=== PATIENT | female | born 1935 | race Caucasian/White ===

== ENCOUNTER 2016-06-06 17:44 | Inpatient (IN) | payer MEDICARE, OTHER ==
[2016-06-06] MEDS ORDERED: ALBUTEROL NEB 2.5 MG/3 ML INH STA ×2 (19:29→21:47)
[2016-06-06] MEDS ORDERED: ALBUTEROL NEB 2.5 MG/3 ML INH ONE ×3 (19:37→22:07)
[2016-06-06] MEDS ORDERED: methylPREDNISolone SUCCINATE 125 MG/2 ML VIAL IVP STA (21:47)
[2016-06-06] MEDS ORDERED: methylPREDNISolone SUCCINATE 125 MG/2 ML VIAL IVP ONE (21:51)
[2016-06-06] MEDS ORDERED: IOPAMIDOL-300 100 ML VIAL IVP ONE (23:11)
[2016-06-06] MEDS ORDERED: ONDANSETRON 4 MG/2 ML VIAL IVP PRN (23:16)
[2016-06-06] MEDS ORDERED: SODIUM CHLORIDE FLUSH 0.9% 10 ML SYRINGE IVP PRN (23:16)
[2016-06-06] MEDS ORDERED: ACETAMINOPHEN 325 MG TABLET PO PRN (23:16)
[2016-06-06] MEDS ORDERED: ALBUTEROL NEB 2.5 MG/3 ML INH PRN (23:24)
[2016-06-06] MEDS ORDERED: ENOXAPARIN 40 MG/0.4 ML SYRINGE SUBQ SCH (23:51)
[2016-06-07] MEDS: IPRATROPIUM/ALBUTEROL 3 ML NEB INH SCH ×2 (00:25→07:40)
[2016-06-07] MEDS ORDERED: hydrALAZINE INJ 20 MG/ML VIAL IVP PRN (00:30)
[2016-06-07] MEDS: DOXYCYCLINE 100 MG TABLET PO SCH ×2 (00:38→08:29)
[2016-06-07] MEDS ORDERED: ACETAMINOPHEN 325 MG TABLET PO PRN (00:52)
[2016-06-07] MEDS ORDERED: LORazepam 0.5 MG TABLET PO PRN (00:55)
[2016-06-07] MEDS ORDERED: ATORVASTATIN 10 MG TABLET PO SCH (01:00)
[2016-06-07] MEDS ORDERED: FENOFIBRATE 160 MG PO SCH (01:00)
[2016-06-07] MEDS: traMADol 50 MG TABLET PO PRN ×2 (02:47→08:53)
[2016-06-07] MEDS ORDERED: IRON POLYSACCHARIDE COMPLEX 180 MG PO SCH ×2 (06:00→14:00)
[2016-06-07] MEDS ORDERED: SODIUM CHLORIDE FLUSH 0.9% 10 ML SYRINGE IVP SCH (06:00)
[2016-06-07] MEDS ORDERED: LEVOTHYROXINE 125 MCG TABLET PO SCH (07:00)
[2016-06-07] MEDS ORDERED: predniSONE 20 MG TABLET PO SCH (08:00)
[2016-06-07] MEDS: INSULIN ASPART 300 UNIT/3 ML PEN SUBQ SCH ×2 (08:36→11:33)
[2016-06-07] MEDS ORDERED: FLUTICASONE NASAL SPRAY NAS SCH (09:00)
[2016-06-07] MEDS ORDERED: POLYETHYLENE GLYCOL 3350 17 GM PACKET PO SCH (09:00)
[2016-06-07] MEDS ORDERED: MAGNESIUM OXIDE 400 MG TABLET PO SCH (09:00)
[2016-06-07] MEDS ORDERED: POTASSIUM CITRATE 10 MEQ TABLET PO SCH (09:00)
[2016-06-07] MEDS ORDERED: LATANOPROST 0.005% OPHTH DROPS EACHEYE SCH (09:00)
[2016-06-07] MEDS ORDERED: CARVEDILOL 12.5 MG TABLET PO SCH (09:00)
[2016-06-07] MEDS ORDERED: ISOSORBIDE MONONITRATE ER 30 MG TABLET PO SCH (09:00)
[2016-06-07] MEDS ORDERED: VALSARTAN 160 MG PO SCH (09:00)
[2016-06-07] MEDS ORDERED: FUROSEMIDE 40 MG TABLET PO SCH (09:00)
[2016-06-07] MEDS ORDERED: NON FORMULARY MED (Dronedarone Hcl [Multaq] 400 MG) PO SCH (09:00)
[2016-06-07] MEDS ORDERED: OLOPATADINE HCL OP SCH (09:00)
[2016-06-07] MEDS ORDERED: CHOLECALCIFEROL 400 UNIT TABLET PO SCH (09:00)
[2016-06-07] MEDS ORDERED: CALCIUM CARBONATE CHEW 500 MG TABLET PO SCH (09:00)
[2016-06-07] MEDS ORDERED: LOSARTAN 50 MG TABLET PO SCH (09:00)
[2016-06-07] MEDS ORDERED: CETIRIZINE 10 MG TABLET PO SCH (09:00)
[2016-06-07] MEDS ORDERED: POTASSIUM CHLORIDE 10 MEQ CAPSULE PO SCH (12:00)
[2016-06-07] MEDS ORDERED: OLOPATADINE HCL EYE EACHEYE SCH (21:00)
[2016-06-07] MEDS ORDERED: FENOFIBRATE 48 MG TABLET PO SCH (21:00)
[2016-06-07] MEDS ORDERED: DRONEDARONE HCL 400 MG PO SCH (21:00)
[2016-06-07] MEDS ORDERED: FAMOTIDINE 20 MG TABLET PO SCH (21:00)
== END 2016-06-07 11:39 | disposition home or self-care (01) | DRG 189 ==
DX: J96.21 Acute and chronic respiratory failure with hypoxia (principal); J44.9 Chronic obstructive pulmonary disease, unspecified; I10 Essential (primary) hypertension; J44.1 Chronic obstructive pulmonary disease with (acute) exacerbation; I25.2 Old myocardial infarction; I48.2 Chronic atrial fibrillation; I11.0 Hypertensive heart disease with heart failure; I48.91 Unspecified atrial fibrillation; I50.9 Heart failure, unspecified; E11.9 Type 2 diabetes mellitus without complications; I27.2 Other secondary pulmonary hypertension; E66.01 Morbid (severe) obesity due to excess calories; G47.33 Obstructive sleep apnea (adult) (pediatric); I25.10 Atherosclerotic heart disease of native coronary artery without angina pectoris; K21.9 Gastro-esophageal reflux disease without esophagitis; E78.5 Hyperlipidemia, unspecified; Z86.73 Personal history of transient ischemic attack (TIA), and cerebral infarction without residual deficits; Z95.1 Presence of aortocoronary bypass graft; Z95.5 Presence of coronary angioplasty implant and graft; Z68.35 Body mass index [BMI] 35.0-35.9, adult; Z95.0 Presence of cardiac pacemaker; Z87.891 Personal history of nicotine dependence

== ENCOUNTER 2016-06-30 13:03 | Outpatient (CLI) | payer MEDICARE, OTHER ==
[2016-06-30] MEDS ORDERED: ALBUTEROL NEB 2.5 MG/3 ML INH ONE (13:28)
== END 2016-06-30 13:04 | disposition home or self-care (01) ==
LOC: RT 13:03
PROVIDERS: ATTEND Internal Medicine
DX: J44.9 Chronic obstructive pulmonary disease, unspecified (principal)
CPT/HCPCS: 94060; J7613

== ENCOUNTER 2016-10-07 10:17 | Emergency (ER) | payer MEDICARE, OTHER ==
[2016-10-07] MEDS ORDERED: PHENobarb/HYOSCY/ATROPINE/SCOP 5 ML SYRINGE PO STA (12:02)
[2016-10-07] MEDS ORDERED: MAG HYDROX/AL HYDROX/SIMETH 30 ML UDC PO STA (12:02)
[2016-10-07] MEDS ORDERED: LIDOCAINE VISCOUS 2% 15 ML UDC MM STA (12:03)
[2016-10-07] MEDS ORDERED: PHENobarb/HYOSCY/ATROPINE/SCOP 5 ML SYRINGE PO ONE (12:10)
[2016-10-07] MEDS ORDERED: MAG HYDROX/AL HYDROX/SIMETH 30 ML UDC ONE (12:11)
[2016-10-07] MEDS ORDERED: LIDOCAINE VISCOUS 2% 15 ML UDC MM ONE (12:11)
--- NOTE | 2016-10-07 12:54 | ED Physician Documentation ---
PD HPI DYSPNEA - Stated complaint Stated Complaint: SOB,FERNANDEZ,NAUSEA - Chief complaint Chief Complaint: Cardiac - History obtained from History obtained from: Patient - History of Present Illness Timing - onset: Today Timing - onset during: Rest Timing - details: Waxing and waning Worsened by: Exertion Associated symptoms: Chest pain / discomfort. No: Fever, Cough Similar symptoms before: Diagnosis (Reports history of similar symptoms with COPD.) - Additional information Additional information: The patient is an 81-year-old female who presents with shortness of breath that is worse this morning than usual. She reports associated nausea, without vomiting. She has had brief substernal chest tightness, and reports getting "clammy." She denies fever, or any change in her chronic cough, which she attributes to allergies. She reports discontinuing Lasix about one month ago because she was annoyed by having to get up to urinate during the night. She also reports history of COPD, with similar symptoms. Past medical history is significant for coronary artery disease, status post CABG, and status post pacemaker placement. Review of Systems Constitutional: reports: Sweats. denies: Fever Ears: denies: Tinnitus/ringing Nose: denies: Congestion Throat: denies: Sore throat Cardiac: reports: Chest pain / pressure. denies: Palpitations Respiratory: reports: Dyspnea, Cough (Mild chronic cough, without recent change. ) GI: reports: Nausea. denies: Abdominal Pain, Vomiting : denies: Dysuria Skin: denies: Rash Musculoskeletal: denies: Back pain, Extremity swelling Neurologic: denies: Focal weakness, Numbness, Headache PD PAST MEDICAL HISTORY - Past Medical History Past Medical History: Yes Cardiovascular: Congestive heart failure, Hypertension, High cholesterol, Coronary artery disease, Angina, [place] Respiratory: COPD, Emphysema, Shortness of breath, Sleep apnea Neuro: None Endocrine/Autoimmune: HyPOthyroidism GI: GERD, GI bleed, Ulcers, Hiatal hernia, Colon polyps, Cholelithiasis : None HEENT: Chronic sinusitis, Chronic hearing loss Psych: None Musculoskeletal: Chronic back pain Derm: Herpes zoster - Past Surgical History Past Surgical History: Yes General: Cholecystectomy, Appendectomy, Hiatal hernia repair, Colonoscopy, EGD Ortho: Rotator cuff repair, Carpal Tunnel surgery, Spine surgery, 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, 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 Cardiovascular: Coronary stent, Pacemaker, Cardiac catheterization, Angioplasty HEENT: Cataracts, Other Derm: Skin cancer surgery - Present Medications Home Medications: Ambulatory Orders Medication Instructions Recorded Confirmed Atorvastatin Calcium 10 mg PO HS 01/09/13 10/07/16 Calcium Carbonate/Vitamin D3 1 each PO BID 01/09/13 06/06/16 [Calcium 600 + Vit D 400 Softgl] Fenofibrate 160 mg PO HS 01/09/13 10/07/16 Fluticasone [Flonase] 1 puffs NS QAM 01/09/13 10/07/16 Isosorbide Mononitrate [Isosorbide 60 mg PO DAILY 01/09/13 10/07/16 Mononitrate ER] Levothyroxine [Synthroid] 250 mcg PO QDAC 01/09/13 10/07/16 Magnesium Oxide 400 mg PO DAILY 01/09/13 10/07/16 Olopatadine HCl [Patanol] 1 drop OP BID 01/09/13 10/07/16 traMADol [Ultram] 50 mg PO BID PRN 05/30/13 10/07/16 Albuterol Sulfate [Albuterol 2 puffs Q4H PRN 09/25/14 10/07/16 Sulfate Hfa] Valsartan [Diovan] 160 mg PO DAILY 09/25/14 10/07/16 Carvedilol 12.5 mg PO BID 01/07/15 10/07/16 Dronedarone HCl [Multaq] 400 mg PO BID 01/07/15 10/07/16 Latanoprost [Xalatan] 1 drop OP DAILY 01/07/15 10/07/16 Furosemide [Lasix] 40 mg PO DAILY 11/21/15 10/07/16 Acetaminophen [Tylenol] 650 mg PO Q4HR PRN #0 tablet 11/24/15 10/07/16 Cetirizine [ZyrTEC] 10 mg PO DAILY 01/05/16 10/07/16 Famotidine [Pepcid] 20 mg PO QPM 01/05/16 10/07/16 Iron Polysaccharide Complex [Pro 180 mg PO TID 06/06/16 06/06/16 Fe] Potassium Chloride 10 meq PO DAILY 06/06/16 10/07/16 Calcium Carbonate [Tums (Calcium 1,500 mg PO BID tablet 06/07/16 Carbonate 500mg)] - Allergies Allergies/Adverse Reactions: Allergies Allergy/AdvReac Type Severity Reaction Status Date / Time hydrochlorothiazide Allergy Severe Anaphylaxis Verified 10/07/16 10:29 sulfamethoxazole Allergy Severe Anaphylaxis Verified 10/07/16 10:29 [From ] trimethoprim [From ] Allergy Severe Anaphylaxis Verified 10/07/16 10:29 amlodipine AdvReac Severe Swelling Verified 10/07/16 10:29 to ankles and feeet atenolol AdvReac Severe Bradycardia Verified 10/07/16 10:29 Penicillins AdvReac Severe Anxiety/Swelling Verified 10/07/16 10:29 and redness at injection site - Social History Does the pt smoke?: No Smoking Status: Never smoker Does the pt drink ETOH?: No Does the pt have substance abuse?: No - Immunizations Immunizations are current?: Yes - POLST Patient has POLST: No PD ED PE NORMAL - Vitals Vital signs reviewed: Yes (mild hypertension initially.) - General General: Alert and oriented X 3, Other (overweight) - HEENT HEENT: Atraumatic, Pharynx benign - Neck Neck: No adenopathy, No JVD - Cardiac Cardiac: RRR, No murmur - Respiratory Respiratory: No respiratory distress, Other (Faint crackles at the bases bilaterally.) - Abdomen Abdomen: Soft, Other (Mild epigastric discomfort to palpation, without rebound tenderness or guarding.) - Back Back: No CVA TTP - Derm Derm: No rash - Extremities Extremities: No calf tenderness / cord, Other (Trace pedal edema bilaterally.) - Neuro Neuro: Alert and oriented X 3, No motor deficit, No sensory deficit Results - Vitals Vitals: Vital Signs - 24 hr 10/07/16 10/07/16 10/07/16 14:23 14:59 16:16 Heart Rate 70 71 68 Respiratory 20 20 20 Rate Blood Pressure 141/120 H 111/70 123/85 H O2 Saturation 99 97 97 Oxygen O2 Source Room air - EKG (time done) 10:36 Rate: Rate (enter#) (70) Rhythm: Paced Compare to prior EKG: Changed from prior EKG (Compared to prior EKG of 2016, normal sinus rhythm has been replaced by a paced rhythm.) Computer interpretation: Agree with computer - Labs Labs: Laboratory Tests 10/07/16 10/07/16 10/07/16 12:00 13:40 13:40 WBC 10.1 RBC 5.09 Hgb 15.3 Hct 45.7 MCV 89.7 MCH 30.0 MCHC 33.4 RDW 15.4 H Plt Count 223 MPV 9.4 Neut # 6.7 H Lymph # 2.4 [place] # 0.8 Eos # 0.1 Baso # 0.1 Absolute Nucleated RBC 0.00 Nucleated RBCs 0.0 Manual Slide Review Indicated Platelet Estimate NORMAL (130-450,000) RBC Morph Micro Appear 1+ ANISOCYTOSIS D-Dimer Sodium 138 Potassium 3.9 Chloride 103 Carbon Dioxide 25 Anion Gap 10.0 BUN 29 H Creatinine 0.7 Estimated GFR (MDRD) 80 L Glucose 116 H Calcium 9.3 Total Bilirubin 0.7 AST 21 ALT 18 Alkaline Phosphatase 42 Troponin I B-Natriuretic Peptide 187 H Total Protein 6.9 Albumin 3.9 Globulin 3.0 Albumin/Globulin Ratio 1.3 Lipase 15 L 10/07/16 10/07/16 13:40 13:40 WBC RBC Hgb Hct MCV MCH MCHC RDW Plt Count MPV Neut # Lymph # [place] # Eos # Baso # Absolute Nucleated RBC Nucleated RBCs Manual Slide Review Platelet Estimate RBC Morph Micro Appear D-Dimer < 200.0 L Sodium Potassium Chloride Carbon Dioxide Anion Gap BUN Creatinine Estimated GFR (MDRD) Glucose Calcium Total Bilirubin AST ALT Alkaline Phosphatase Troponin I < 0.04 B-Natriuretic Peptide Total Protein Albumin Globulin Albumin/Globulin Ratio Lipase - Rads (name of study) One view chest x-ray Radiology: Prelim report reviewed, EMP read contemporaneously, See rad report ( Mild cardiomegaly and CHF. Pacer.) PD MEDICAL DECISION MAKING - ED course Complexity details: reviewed old records, reviewed results, re-evaluated patient , considered differential, d/w patient, d/w family ED course: The patient's presentation is most consistent with acute exacerbation of congestive heart failure. I doubt myocardial infarction or pulmonary embolus. Her presentation does not suggest pneumonia. Treatment in the emergency department included administration of GI cocktail which did not change her symptoms. Lasix 40 mg was administered IV with subsequent diuresis. She felt subjectively much improved and demonstrated ability to ambulate without recurrent dyspnea. I discussed with her and her the importance that she resume taking Lasix as previously prescribed. I also discussed with them the importance of outpatient follow-up, as well as potentially worrisome signs or symptoms that should prompt reevaluation in the emergency department. Departure - Departure Disposition: 01 Home, Self Care Clinical Impression: CHF (congestive heart failure) Qualifiers: Congestive heart failure type: unspecified congestive heart failure type Congestive heart failure chronicity: acute on chronic Qualified Code(s): I50.9 - Heart failure, unspecified Condition: Stable Instructions: ED CHF General Follow-Up: Coco Garrett DO [Primary Care Provider] - Comments: Resume taking your Lasix as previously prescribed. Follow up with your primary physician within one week. Call to schedule an appointment. Return to the emergency department if you develop increasing difficulty breathing, chest pain, or otherwise worsening symptoms. Discharge Date/Time: 10/07/16 16:16
--- NOTE | 2016-10-07 13:56 | XRAY Preliminary Report ---
Exam: XR Chest 1 View IMPRESSION: 1. Mild cardiomegaly and CHF. 2. Pacer. [facility] SITE ID: [id number]
[2016-10-07 14:00] LABS: BASOPHILS # (AUTO) 0.1 10^3/uL (0.0-0.1); BASOPHILS % (AUTO) 0.8 %; EOSINOPHILS # (AUTO) 0.1 10^3/uL (0.0-0.7); EOSINOPHILS % (AUTO) 0.8 %; HCT - HEMATOCRIT 45.7 % (37.0-47.0); HGB - HEMOGLOBIN 15.3 g/dL (12.0-16.0); LYMPHOCYTES # (AUTO) 2.4 10^3/uL (1.5-3.5); LYMPHOCYTES % (AUTO) 23.9 %; MEAN CORPUSCULAR HGB CONC 33.4 g/dL (32.0-36.0); MEAN CORPUSCULAR VOLUME 89.7 fL (81.0-99.0); MEAN PLATELET VOLUME 9.4 fL (7.9-10.8); MONOCYTES # (AUTO) 0.8 10^3/uL (0.0-1.0); MONOCYTES % (AUTO) 7.5 %; NEUTROPHILS # (AUTO) 6.7 10^3/uL (1.5-6.6); RED BLOOD COUNT 5.09 10^6/uL (4.20-5.40); RED CELL DISTRIBUTION WIDTH 15.4 % (12.0-15.0); UNCORRECTED WHITE BLOOD COUNT 10.1 x10^3/uL; WHITE BLOOD COUNT 10.1 x10^3/uL (4.8-10.8)
--- NOTE | 2016-10-07 14:02 | XRAY Report ---
EXAM: CHEST RADIOGRAPHY EXAM DATE: 10/07/2016 01:36 PM. CLINICAL HISTORY: Dyspnea. COMPARISON: 06/06/2016. TECHNIQUE: 1 view. FINDINGS: Lungs/Pleura: Moderate vascular congestion. No focal consolidation, effusion or pneumothorax. Borderl ine low lung volumes. Mediastinum: Stable mild cardiomegaly. Stable dual-lead left subclavian pacer. Remote sternotomy. No adenopathy. Other: None. IMPRESSION: 1. Mild cardiomegaly and CHF. 2. Pacer. [facility] Referring Provider Line: [phone] SITE ID: [id number]
[2016-10-07 14:04] LABS: ALBUMIN/GLOBULIN RATIO 1.3 (1.0-2.2); BILIRUBIN,TOTAL 0.7 mg/dL (0.2-1.0); CALCIUM 9.3 mg/dL (8.5-10.3); CREATININE 0.7 mg/dL (0.4-1.0); POTASSIUM 3.9 mmol/L (3.5-5.0); TOTAL PROTEIN 6.9 g/dL (6.7-8.2)
[2016-10-07] MEDS ORDERED: FUROSEMIDE 40 MG/4 ML VIAL IVP STA (14:16)
[2016-10-07] MEDS ORDERED: FUROSEMIDE 40 MG/4 ML VIAL ONE (14:22)
[2016-10-07] MEDS ORDERED: SODIUM CHLORIDE FLUSH 0.9% 10 ML SYRINGE IVP ONE (14:25)
[2016-10-07 14:53] LABS: PLATELET ESTIMATE, MANUAL NORMAL (130-450,000) (NORMAL)
[2016-10-07 16:16] VITALS: BP 123/85
== END 2016-10-07 16:16 | disposition home or self-care (01) ==
LOC: ED 10:17
DX: I11.0 Hypertensive heart disease with heart failure (principal); I50.9 Heart failure, unspecified; I25.10 Atherosclerotic heart disease of native coronary artery without angina pectoris; Z95.5 Presence of coronary angioplasty implant and graft; J44.9 Chronic obstructive pulmonary disease, unspecified; E78.00 Pure hypercholesterolemia, unspecified; Z95.0 Presence of cardiac pacemaker
CPT/HCPCS: 36415; 71010; 80053; 83690; 83880; 84484; 85025; 85379; 93005; 96374; 99283; 99285; A9270

== ENCOUNTER 2016-10-09 14:40 | Outpatient (CLI) | payer MEDICARE, OTHER | END 2016-10-09 14:41 | disposition critical access hospital (66) | LOC: EMS 14:40 | PROVIDERS: ATTEND Surgery | DX: R06.00 Dyspnea, unspecified (principal) | CPT/HCPCS: A0425; A0427 ==

== ENCOUNTER 2016-10-09 15:09 | Emergency (ER) | payer MEDICARE, OTHER ==
[2016-10-09 16:00] LABS: ALBUMIN/GLOBULIN RATIO 1.6 (1.0-2.2); BILIRUBIN,TOTAL 0.6 mg/dL (0.2-1.0); CALCIUM 9.1 mg/dL (8.5-10.3); CREATININE 1.2 mg/dL (0.4-1.0); POTASSIUM 3.6 mmol/L (3.5-5.0); TOTAL PROTEIN 6.6 g/dL (6.7-8.2)
--- NOTE | 2016-10-09 16:05 | XRAY Preliminary Report ---
Exam: XR Chest 1 View IMPRESSION: 1. Lung volumes are somewhat low. 2. There is cardiomegaly. 3. Increased opacity within the left base is probably artifact secondary to lordotic AP positioning r ather than infiltrate. No other focal areas of opacity are seen. 4. No evidence of pneumothorax. [facility] SITE ID: [id number]
--- NOTE | 2016-10-09 16:07 | XRAY Report ---
EXAM: CHEST RADIOGRAPHY EXAM DATE: 10/09/2016 03:35 PM. CLINICAL HISTORY: Dyspnea. COMPARISON: 10/07/2016, 06/06/2016. TECHNIQUE: 1 view. FINDINGS: Lungs/Pleura: Lung volumes are somewhat low. There is opacity within the left lateral lung base. The right lung is clear. No evidence of pneumothorax. Mediastinum: There is cardiomegaly. Patient has undergone median sternotomy. Left subclavian dual-tibmo d pacemaker is in place. Other: No acute bony abnormalities are seen. IMPRESSION: 1. Lung volumes are somewhat low. 2. There is cardiomegaly. 3. Increased opacity within the left base is probably artifact secondary to lordotic AP positioning r ather than infiltrate. No other focal areas of opacity are seen. 4. No evidence of pneumothorax. [facility] Referring Provider Line: [phone] SITE ID: [id number]
[2016-10-09 16:13] LABS: BASOPHILS # (AUTO) 0.1 10^3/uL (0.0-0.1); BASOPHILS % (AUTO) 0.9 %; EOSINOPHILS # (AUTO) 0.1 10^3/uL (0.0-0.7); EOSINOPHILS % (AUTO) 0.8 %; HCT - HEMATOCRIT 44.3 % (37.0-47.0); HGB - HEMOGLOBIN 14.7 g/dL (12.0-16.0); LYMPHOCYTES # (AUTO) 2.5 10^3/uL (1.5-3.5); LYMPHOCYTES % (AUTO) 29.3 %; MEAN CORPUSCULAR HEMOGLOBIN 30.2 pg (27.0-31.0); MEAN CORPUSCULAR HGB CONC 33.2 g/dL (32.0-36.0); MEAN CORPUSCULAR VOLUME 91.1 fL (81.0-99.0); MEAN PLATELET VOLUME 9.4 fL (7.9-10.8); MONOCYTES # (AUTO) 0.5 10^3/uL (0.0-1.0); MONOCYTES % (AUTO) 5.6 %; NEUTROPHILS # (AUTO) 5.5 10^3/uL (1.5-6.6); NEUTROPHILS % (AUTO) 63.4 %; NUCLEATED RED BLOOD CELLS AUTO 0.1 /100WBC; RED BLOOD COUNT 4.87 10^6/uL (4.20-5.40); UNCORRECTED WHITE BLOOD COUNT 8.7 x10^3/uL; WHITE BLOOD COUNT 8.7 x10^3/uL (4.8-10.8)
[2016-10-09 16:47] LABS: PLATELET ESTIMATE, MANUAL NORMAL (130-450,000) (NORMAL)
[2016-10-09] MEDS ORDERED: ALBUTEROL NEB 2.5 MG/3 ML INH STA (16:47)
[2016-10-09 17:03] VITALS: BP 134/57
[2016-10-09] MEDS ORDERED: ALBUTEROL NEB 2.5 MG/3 ML INH ONE (17:03)
[2016-10-09] MEDS ORDERED: SODIUM CHLORIDE 0.9% 1,000 ML IV ONE (17:19)
--- NOTE | 2016-10-09 19:07 | ED Physician Documentation ---
PD HPI CHEST PAIN - Stated complaint Stated Complaint: SOA - Chief complaint Chief Complaint: Resp - History obtained from History obtained from: Patient - Additional information Additional information: Patient is a 81-year-old female who presents with a complaint of shortness of breath. She does have chronic shortness of breath although it was a little bit more worse recently. She has a mild nonproductive cough but denies any chest pain chest heaviness fever, productive cough or any other pulmonary complaints. I guess there is some controversy whether she has COPD or not. She never was a smoker but was exposed to secondhand smoke she does take Advair and has a albuterol metered-dose inhaler at home. She does have a history of a CABG stent 2, diabetes and was treated recently for congestive heart failure here with recommendation that she reinitiate her Lasix last week. A cardiac echo done in the past demonstrates LVH, ejection fraction 70% and diastolic dysfunction. She also has a history of atrial fibrillation and obstructive sleep apnea. Review of systems: For pertinent positive and negatives in the review of systems please see the history of present illness, otherwise all other systems have been reviewed and are negative. Dragon disclaimer: Parts of this medical record were created using voice recognition technology. Because of the inherent limitations of this system, occasional same sounding word substitutions do occur and persist despite proofreading. Please read the document for context. Review of Systems Constitutional: denies: Fever, Chills Eyes: denies: Loss of vision Cardiac: denies: Chest pain / pressure, Palpitations Respiratory: reports: Cough GI: denies: Abdominal Pain, Abdominal Swelling, Nausea, Vomiting : denies: Unable to Void Musculoskeletal: denies: Neck pain, Extremity pain, Joint pain Neurologic: denies: Generalized weakness, Focal weakness, Numbness, Difficulty speaking, Near syncope PD PAST MEDICAL HISTORY - Past Medical History Cardiovascular: Congestive heart failure, Hypertension, High cholesterol, Coronary artery disease, Angina, [place] Respiratory: COPD, Emphysema, Shortness of breath, Sleep apnea Neuro: None Endocrine/Autoimmune: HyPOthyroidism GI: GERD, GI bleed, Ulcers, Hiatal hernia, Colon polyps, Cholelithiasis : None HEENT: Chronic sinusitis, Chronic hearing loss Psych: None Musculoskeletal: Chronic back pain Derm: Herpes zoster - Past Surgical History Past Surgical History: Yes General: Cholecystectomy, Appendectomy, Hiatal hernia repair, Colonoscopy, EGD Ortho: Rotator cuff repair, Carpal Tunnel surgery, Spine surgery, 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, 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 Cardiovascular: Coronary stent, Pacemaker, Cardiac catheterization, Angioplasty HEENT: Cataracts, Other Derm: Skin cancer surgery - Present Medications Home Medications: Ambulatory Orders Medication Instructions Recorded Confirmed Atorvastatin Calcium 10 mg PO HS 01/09/13 10/07/16 Calcium Carbonate/Vitamin D3 1 each PO BID 01/09/13 06/06/16 [Calcium 600 + Vit D 400 Softgl] Fenofibrate 160 mg PO HS 01/09/13 10/07/16 Fluticasone [Flonase] 1 puffs NS QAM 01/09/13 10/07/16 Isosorbide Mononitrate [Isosorbide 60 mg PO DAILY 01/09/13 10/07/16 Mononitrate ER] Levothyroxine [Synthroid] 250 mcg PO QDAC 01/09/13 10/07/16 Magnesium Oxide 400 mg PO DAILY 01/09/13 10/07/16 Olopatadine HCl [Patanol] 1 drop OP BID 01/09/13 10/07/16 traMADol [Ultram] 50 mg PO BID PRN 05/30/13 10/07/16 Albuterol Sulfate [Albuterol 2 puffs Q4H PRN 09/25/14 10/07/16 Sulfate Hfa] Valsartan [Diovan] 160 mg PO DAILY 09/25/14 10/07/16 Carvedilol 12.5 mg PO BID 01/07/15 10/07/16 Dronedarone HCl [Multaq] 400 mg PO BID 01/07/15 10/07/16 Latanoprost [Xalatan] 1 drop OP DAILY 01/07/15 10/07/16 Furosemide [Lasix] 40 mg PO DAILY 11/21/15 10/07/16 Acetaminophen [Tylenol] 650 mg PO Q4HR PRN #0 tablet 11/24/15 10/07/16 Cetirizine [ZyrTEC] 10 mg PO DAILY 01/05/16 10/07/16 Famotidine [Pepcid] 20 mg PO QPM 01/05/16 10/07/16 Iron Polysaccharide Complex [Pro 180 mg PO TID 06/06/16 06/06/16 Fe] Potassium Chloride 10 meq PO DAILY 06/06/16 10/07/16 Calcium Carbonate [Tums (Calcium 1,500 mg PO BID tablet 06/07/16 Carbonate 500mg)] - Allergies Allergies/Adverse Reactions: Allergies Allergy/AdvReac Type Severity Reaction Status Date / Time hydrochlorothiazide Allergy Severe Anaphylaxis Verified 10/09/16 15:27 sulfamethoxazole Allergy Severe Anaphylaxis Verified 10/09/16 15:27 [From ] trimethoprim [From ] Allergy Severe Anaphylaxis Verified 10/09/16 15:27 amlodipine AdvReac Severe Swelling Verified 10/09/16 15:27 to ankles and feeet atenolol AdvReac Severe Bradycardia Verified 10/09/16 15:27 Penicillins AdvReac Severe Anxiety/Swelling Verified 10/09/16 15:27 and redness at injection site - Social History Does the pt smoke?: No Smoking Status: Never smoker Does the pt drink ETOH?: No Does the pt have substance abuse?: No - Immunizations Immunizations are current?: Yes - POLST Patient has POLST: No PD ED PE NORMAL - Vitals Vital signs reviewed: Yes - General General: Alert and oriented X 3, No acute distress, Well developed/nourished - HEENT HEENT: Atraumatic - Neck Neck: Supple, no meningeal sign, No bony TTP, Other - Cardiac Cardiac: RRR, No murmur, No gallop, Other - Respiratory Respiratory: No respiratory distress, Clear bilaterally, Other (Occasional end expiratory wheeze) - Abdomen Abdomen: Normal bowel sounds, Non tender, Non distended - Female Female : Deferred - Derm Derm: Normal color, Warm and dry - Extremities Extremities: No deformity, No tenderness to palpate, Normal ROM s pain, No edema , No calf tenderness / cord - Neuro Neuro: Alert and oriented X 3, No motor deficit, No sensory deficit - Psych Psych: Normal mood, Normal affect Results - Vitals Vitals: Vital Signs - 24 hr 10/09/16 10/09/16 10/09/16 15:04 16:55 17:12 Temperature 36.2 C L Heart Rate 59 L 59 L 60 Respiratory 22 16 18 Rate Blood Pressure 148/90 H 134/57 H O2 Saturation 99 93 Oxygen O2 Source Room air - Labs Labs: Laboratory Tests 10/09/16 10/09/16 10/09/16 15:39 15:39 15:39 WBC 8.7 RBC 4.87 Hgb 14.7 Hct 44.3 MCV 91.1 MCH 30.2 MCHC 33.2 RDW 15.0 Plt Count 231 MPV 9.4 Neut # 5.5 Lymph # 2.5 [place] # 0.5 Eos # 0.1 Baso # 0.1 Absolute Nucleated RBC 0.01 Nucleated RBCs 0.1 Manual Slide Review Indicated Platelet Estimate NORMAL (130-450,000) RBC Morph Micro Appear NORMAL APPEARANCE D-Dimer Sodium 142 Potassium 3.6 Chloride 104 Carbon Dioxide 29 Anion Gap 9.0 BUN 39 H Creatinine 1.2 H Estimated GFR (MDRD) 43 L Glucose 149 H Calcium 9.1 Total Bilirubin 0.6 AST 22 ALT 18 Alkaline Phosphatase 44 Troponin I < 0.04 B-Natriuretic Peptide Total Protein 6.6 L Albumin 4.1 Globulin 2.5 Albumin/Globulin Ratio 1.6 Lipase 14 L 10/09/16 10/09/16 15:39 15:39 WBC RBC Hgb Hct MCV MCH MCHC RDW Plt Count MPV Neut # Lymph # [place] # Eos # Baso # Absolute Nucleated RBC Nucleated RBCs Manual Slide Review Platelet Estimate RBC Morph Micro Appear D-Dimer < 200.0 L Sodium Potassium Chloride Carbon Dioxide Anion Gap BUN Creatinine Estimated GFR (MDRD) Glucose Calcium Total Bilirubin AST ALT Alkaline Phosphatase Troponin I B-Natriuretic Peptide 59 Total Protein Albumin Globulin Albumin/Globulin Ratio Lipase PD MEDICAL DECISION MAKING - ED course Complexity details: reviewed old records, reviewed results, re-evaluated patient , considered differential, d/w patient, d/w family ED course: Pleasant lady who presents with a complaint of shortness of breath. She does have history of chronic shortness of breath and looking through her history there is a diagnosis COPD history patient denies. She is however on Advair chronically and albuterol for rescue. It appears that she may have had some exposure to secondhand smoke from her . She was seen here recently and diagnosed with congestive heart failure by x-ray and placed on Lasix which she had been taking the past but on a more periodic basis. It appears from the onset of Lasix initiation from last week until today kidney function has worsened significantly. Last week her BUN was 29 creatinine 0.7 today it is 39 and 1.2. In addition her chief complaint is also dizziness which I think may be related to volume depletion. She was given a liter of normal saline and feels better. EKG here today demonstrates normal sinus rhythm at 60 bpm MD QRS and QT intervals are normal there is no ST segment elevation, depression, or T- wave inversion overall to fairly normal EKG there is poor R-wave progression anteriorly. Chest x-ray shows no acute intrathoracic disease and the blood work has already been mentioned. Her BNP, troponin, and CBC as well as urine are normal. At this point in time I have recommended that she discontinue the Lasix, increase hydration, continue the Advair and albuterol as needed and follow-up with her physician. Also of note I believe she is low risk for PE and she has a negative d-dimer as well. Disposition: To home Clinical impression: 1. Acute kidney injury secondary to overdiuresis 2. Dyspnea-suspect bronchospasm not CHF Please send a copy to Dr. Garrett the patient's PMD Departure - Departure Disposition: 01 Home, Self Care Clinical Impression: Bronchitis, Dehydration, mild Condition: Good Instructions: ED Dehydration Follow-Up: Saniya Garrett MD [Primary Care Provider] - Comments: He was seen in emergency department last week and believed to have a touch of congestive heart failure. Since then he started Lasix at 40 mg a day. Our tests here show that your kidneys are stressed from utilization of Lasix. He stopped the Lasix immediately and follow-up with her physician within a week to discuss the results and also recheck her kidney function.
== END 2016-10-09 21:51 | disposition home or self-care (01) ==
LOC: ED 15:09
DX: J40 Bronchitis, not specified as acute or chronic (principal); E86.0 Dehydration; I11.0 Hypertensive heart disease with heart failure; I50.9 Heart failure, unspecified; I25.10 Atherosclerotic heart disease of native coronary artery without angina pectoris; Z95.5 Presence of coronary angioplasty implant and graft; Z95.0 Presence of cardiac pacemaker; J44.9 Chronic obstructive pulmonary disease, unspecified; E11.9 Type 2 diabetes mellitus without complications; Z95.1 Presence of aortocoronary bypass graft; I48.91 Unspecified atrial fibrillation; G47.30 Sleep apnea, unspecified
CPT/HCPCS: 36415; 71010; 80053; 83690; 83880; 84484; 85025; 85379; 93005; 94640; 99284; J7613

== ENCOUNTER 2016-12-01 11:37 | Emergency (ER) | payer MEDICARE, OTHER ==
--- NOTE | 2016-12-01 12:39 | ED Physician Documentation ---
History of Present Illness - Stated complaint Stated Complaint: SOA/DIZZY - Chief complaint Chief Complaint: General - History obtained from History obtained from: Patient - History of Present Illness Timing: Other (This is an 81-year-old woman with history of coronary disease, status post three-vessel bypass in 2003 has been stented since, also history of CHF on intermittent Lasix for weight gain and atrial fibrillation with pacemaker in place, not currently anticoagulated because of a history of GI bleeding last year. She presents with several days worth of increasing lightheadedness especially when she stands up but is slightly present at rest, also exertional dyspnea that is not positional. She has a baseline cough which is no worse than normal because of allergies she says. There is no associated chest pain or pedal edema.) Review of Systems Ten Systems: 10 systems reviewed and negative Constitutional: denies: Fever, Chills, Fatigue Nose: denies: Rhinorrhea / runny nose, Congestion Cardiac: denies: Chest pain / pressure, Palpitations, Pedal edema, Calf pain Respiratory: reports: Dyspnea, Cough. denies: Hemoptysis, Wheezing PD PAST MEDICAL HISTORY - Past Medical History Past Medical History: Yes Cardiovascular: Congestive heart failure, Hypertension, High cholesterol, Coronary artery disease, Angina, [place] Respiratory: COPD, Emphysema, Shortness of breath, Sleep apnea Neuro: None Endocrine/Autoimmune: HyPOthyroidism GI: GERD, GI bleed, Ulcers, Hiatal hernia, Colon polyps, Cholelithiasis : None HEENT: Chronic sinusitis, Chronic hearing loss Psych: None Musculoskeletal: Chronic back pain Derm: Herpes zoster - Past Surgical History Past Surgical History: Yes General: Cholecystectomy, Appendectomy, Hiatal hernia repair, Colonoscopy, EGD Ortho: Rotator cuff repair, Carpal Tunnel surgery, Spine surgery, 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, 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 Cardiovascular: Coronary stent, Pacemaker, Cardiac catheterization, Angioplasty HEENT: Cataracts, Other Derm: Skin cancer surgery - Present Medications Home Medications: Ambulatory Orders Medication Instructions Recorded Confirmed Atorvastatin Calcium 10 mg PO HS 01/09/13 12/01/16 Calcium Carbonate/Vitamin D3 1 each PO BID 01/09/13 12/01/16 [Calcium 600 + Vit D 400 Softgl] Fenofibrate 160 mg PO HS 01/09/13 12/01/16 Fluticasone [Flonase] 1 puffs NS QAM 01/09/13 12/01/16 Isosorbide Mononitrate [Isosorbide 60 mg PO DAILY 01/09/13 12/01/16 Mononitrate ER] Levothyroxine [Synthroid] 250 mcg PO QDAC 01/09/13 12/01/16 Magnesium Oxide 400 mg PO DAILY 01/09/13 12/01/16 Olopatadine HCl [Patanol] 1 drop OP BID 01/09/13 12/01/16 traMADol [Ultram] 50 mg PO BID PRN 05/30/13 12/01/16 Albuterol Sulfate [Albuterol 2 puffs Q4H PRN 09/25/14 12/01/16 Sulfate Hfa] Valsartan [Diovan] 160 mg PO DAILY 09/25/14 12/01/16 Carvedilol 12.5 mg PO BID 01/07/15 12/01/16 Dronedarone HCl [Multaq] 400 mg PO BID 01/07/15 12/01/16 Latanoprost [Xalatan] 1 drop OP DAILY 01/07/15 12/01/16 Furosemide [Lasix] 40 mg PO DAILY PRN 11/21/15 12/01/16 Acetaminophen [Tylenol] 650 mg PO Q4HR PRN #0 tablet 11/24/15 12/01/16 Cetirizine [ZyrTEC] 10 mg PO DAILY 01/05/16 12/01/16 Famotidine [Pepcid] 20 mg PO QPM 01/05/16 12/01/16 Iron Polysaccharide Complex [Pro 180 mg PO TID 06/06/16 12/01/16 Fe] Potassium Chloride 10 meq PO DAILY 06/06/16 12/01/16 Calcium Carbonate [Tums (Calcium 1,500 mg PO BID tablet 06/07/16 12/01/16 Carbonate 500mg)] - Allergies Allergies/Adverse Reactions: Allergies Allergy/AdvReac Type Severity Reaction Status Date / Time hydrochlorothiazide Allergy Severe Anaphylaxis Verified 10/09/16 15:27 sulfamethoxazole Allergy Severe Anaphylaxis Verified 10/09/16 15:27 [From ] trimethoprim [From ] Allergy Severe Anaphylaxis Verified 10/09/16 15:27 amlodipine AdvReac Severe Swelling Verified 10/09/16 15:27 to ankles and feeet atenolol AdvReac Severe Bradycardia Verified 10/09/16 15:27 Penicillins AdvReac Severe Anxiety/Swelling Verified 10/09/16 15:27 and redness at injection site - Living Situation Living Situation: reports: With spouse/s.o. - Social History Does the pt smoke?: No Smoking Status: Never smoker Does the pt drink ETOH?: No Does the pt have substance abuse?: No - Family History Family history: reports: Non contributory - Immunizations Immunizations are current?: Yes - POLST Patient has POLST: No PD ED PE NORMAL - Vitals Vital signs reviewed: Yes - General General: Alert and oriented X 3, No acute distress - HEENT HEENT: PERRL, EOMI - Neck Neck: Supple, no meningeal sign, No bony TTP - Cardiac Cardiac: RRR, No murmur - Respiratory Respiratory: No respiratory distress, Other (Slightly rhonchorous at the bases without rales) - Abdomen Abdomen: Soft, Non tender - Back Back: No CVA TTP, No spinal TTP - Derm Derm: Normal color, Warm and dry - Extremities Extremities: No edema, No calf tenderness / cord - Neuro Neuro: Alert and oriented X 3, Normal speech - Psych Psych: Normal mood, Normal affect Results - Vitals Vitals: Vital Signs - 24 hr 12/01/16 11:48 Temperature 36.4 C L Heart Rate 61 Respiratory 20 Rate Blood Pressure 101/61 O2 Saturation 98 Oxygen O2 Source Room air - EKG (time done) 1247 Rate: Rate (enter#) (60) Rhythm: NSR [place]: Normal Intervals: Normal IN QRS: LVH Ischemia: Non specific changes Compare to prior EKG: Unchanged from prior EKG (NO CHANGE FROM 10/09/16) Computer interpretation: Agree with computer - Labs Labs: Laboratory Tests 12/01/16 12/01/16 12/01/16 12:35 12:35 12:35 WBC 9.3 RBC 4.83 Hgb 15.0 Hct 45.4 MCV 94.1 MCH 31.0 MCHC 33.0 RDW 15.1 H Plt Count 220 MPV 9.9 Neut # 6.0 Lymph # 2.3 [place] # 0.7 Eos # 0.1 Baso # 0.1 Absolute Nucleated RBC 0.01 Nucleated RBC % 0.1 D-Dimer Sodium 137 Potassium 4.2 Chloride 100 L Carbon Dioxide 28 Anion Gap 9.0 BUN 27 H Creatinine 0.9 Estimated GFR (MDRD) 60 L Glucose 121 H Calcium 9.4 Total Bilirubin 0.5 AST 25 ALT 18 Alkaline Phosphatase 38 L Troponin I < 0.04 B-Natriuretic Peptide Total Protein 7.1 Albumin 4.1 Globulin 3.0 Albumin/Globulin Ratio 1.4 Lipase 17 L 12/01/16 12/01/16 12:35 13:05 WBC RBC Hgb Hct MCV MCH MCHC RDW Plt Count MPV Neut # Lymph # [place] # Eos # Baso # Absolute Nucleated RBC Nucleated RBC % D-Dimer 201.5 Sodium Potassium Chloride Carbon Dioxide Anion Gap BUN Creatinine Estimated GFR (MDRD) Glucose Calcium Total Bilirubin AST ALT Alkaline Phosphatase Troponin I B-Natriuretic Peptide 73 Total Protein Albumin Globulin Albumin/Globulin Ratio Lipase - Rads (name of study) 2v chest Radiology: EMP read contemporaneously (Chronic lung disease and pacemaker in place without fluid overload or acute disease.) PD MEDICAL DECISION MAKING - ED course ED course: 81-year-old woman presents with postural lightheadedness, her EKG is unchanged and she appears at least euvolemic if not slightly hypovolemic on exam. Her BUN is up. There is no evidence of CHF. She is administered IV fluids. Departure - Departure Disposition: 01 Home, Self Care Clinical Impression: Near syncope, Dehydration Condition: Good Record reviewed to determine appropriate education?: Yes Instructions: ED Dehydration, ED Near Syncope Unkn Comments: Call your doctor to arrange a follow-up appointment, make the next available appointment. In the interim, return anytime if worse or if new symptoms develop.
[2016-12-01 12:44] LABS: BASOPHILS # (AUTO) 0.1 10^3/uL (0.0-0.1); BASOPHILS % (AUTO) 0.7 %; EOSINOPHILS # (AUTO) 0.1 10^3/uL (0.0-0.7); EOSINOPHILS % (AUTO) 1.4 %; HCT - HEMATOCRIT 45.4 % (37.0-47.0); LYMPHOCYTES # (AUTO) 2.3 10^3/uL (1.5-3.5); LYMPHOCYTES % (AUTO) 25.3 %; MEAN CORPUSCULAR VOLUME 94.1 fL (81.0-99.0); MEAN PLATELET VOLUME 9.9 fL (7.9-10.8); MONOCYTES # (AUTO) 0.7 10^3/uL (0.0-1.0); MONOCYTES % (AUTO) 7.8 %; NEUTROPHILS % (AUTO) 64.8 %; NUCLEATED RED BLOOD CELLS AUTO 0.1 /100WBC; RED BLOOD COUNT 4.83 10^6/uL (4.20-5.40); RED CELL DISTRIBUTION WIDTH 15.1 % (12.0-15.0); UNCORRECTED WHITE BLOOD COUNT 9.3 x10^3/uL; WHITE BLOOD COUNT 9.3 x10^3/uL (4.8-10.8)
[2016-12-01 12:52] LABS: ALBUMIN/GLOBULIN RATIO 1.4 (1.0-2.2); BILIRUBIN,TOTAL 0.5 mg/dL (0.2-1.0); CALCIUM 9.4 mg/dL (8.5-10.3); CREATININE 0.9 mg/dL (0.4-1.0); POTASSIUM 4.2 mmol/L (3.5-5.0); TOTAL PROTEIN 7.1 g/dL (6.7-8.2)
[2016-12-01] MEDS ORDERED: SODIUM CHLORIDE 0.9% 500 ML IV ONE (13:34)
--- NOTE | 2016-12-01 14:31 | XRAY Preliminary Report ---
Exam: XR Chest 2 View PA/LAT IMPRESSION: 1. Chronic lung disease. 2. Pacer. [facility] SITE ID: [id number]
[2016-12-01 14:40] VITALS: BP 153/64
--- NOTE | 2016-12-01 14:40 | XRAY Report ---
EXAM: CHEST RADIOGRAPHY EXAM DATE: 12/01/2016 01:43 p.m. CLINICAL HISTORY: Dyspnea. COMPARISON: 10/09/2016. 06/06/2016 chest CTA. TECHNIQUE: 2 views. FINDINGS: Lungs/Pleura: Overexpanded, emphysematous changes. Stable fibrosis in right posterior lung base. No focal consolidation, effusion, vascular congestion, nor pneumothorax. Mediastinum: Heart is of normal caliber. Remote sternotomy. Dual-lead left subclavian pacer. Other: Cholecystectomy. IMPRESSION: 1. Chronic lung disease. 2. Pacer. [facility] Referring Provider Line: [phone] SITE ID: [id number]
== END 2016-12-01 15:50 | disposition home or self-care (01) ==
LOC: ED 11:37
DX: R55 Syncope and collapse (principal); E86.0 Dehydration; R94.31 Abnormal electrocardiogram [ECG] [EKG]; I11.0 Hypertensive heart disease with heart failure; I50.9 Heart failure, unspecified; E78.00 Pure hypercholesterolemia, unspecified; I25.10 Atherosclerotic heart disease of native coronary artery without angina pectoris; I25.2 Old myocardial infarction; Z95.1 Presence of aortocoronary bypass graft; Z95.0 Presence of cardiac pacemaker
CPT/HCPCS: 36415; 71020; 80053; 83690; 83880; 84484; 85025; 85379; 93005; 96360; 99284; 99285

== ENCOUNTER 2016-12-21 13:09 | Outpatient (CLI) | payer MEDICARE, OTHER | END 2016-12-21 13:10 | disposition home or self-care (01) | LOC: RT 13:09 | PROVIDERS: ATTEND Internal Medicine | DX: J44.9 Chronic obstructive pulmonary disease, unspecified (principal) | CPT/HCPCS: 94010 ==

== ENCOUNTER 2018-01-20 23:09 | Outpatient (CLI) | payer MEDICARE, OTHER | END 2018-01-20 23:10 | disposition critical access hospital (66) | LOC: EMS 23:09 | PROVIDERS: ATTEND Surgery | DX: M25.511 Pain in right shoulder (principal); W01.0XXA Fall on same level from slipping, tripping and stumbling without subsequent striking against object, initial encounter; Y93.01 Activity, walking, marching and hiking; Y92.008 Other place in unspecified non-institutional (private) residence as the place of occurrence of the external cause | CPT/HCPCS: A0425; A0427 ==

== ENCOUNTER 2018-01-20 23:28 | Emergency (ER) | payer MEDICARE, OTHER ==
[2018-01-20] MEDS ORDERED: MORPHINE 10 MG/ML VIAL IVP STA (23:42)
--- NOTE | 2018-01-20 23:44 | ED Physician Documentation ---
PD HPI UPPER EXT INJURY - Stated complaint Stated Complaint: GLF - Chief complaint Chief Complaint: Trauma Ext - History obtained from History obtained from: Patient - History of Present Illness Location: Right, Arm, Forearm Type of injury: Fall (walking in slippers and tripped on edge of carpet, falling forward/right onto right arm mostly. Abrasion to knee as well.) Where injury occurred: Home Timing - onset: How many hours ago (1), Today Timing - details: Abrupt onset, Still present Worsened by: Moving, Palpating Associated symptoms: No: Weakness, Numbness, Tingling Contributing factors: No: Anticoagulated Similar symptoms before: Has not had sx before Recently seen: Not recently seen Review of Systems Constitutional: denies: Fever, Chills Nose: denies: Rhinorrhea / runny nose, Congestion Throat: denies: Sore throat Respiratory: denies: Cough GI: denies: Abdominal Pain, Nausea, Vomiting, Diarrhea Skin: denies: Rash Neurologic: denies: Generalized weakness, Focal weakness, Numbness, Difficulty speaking, Altered mental status, Head injury PD PAST MEDICAL HISTORY - Past Medical History Cardiovascular: Congestive heart failure, Hypertension, High cholesterol, Coronary artery disease, Angina, [place] Respiratory: COPD, Emphysema, Shortness of breath, Sleep apnea Endocrine/Autoimmune: HyPOthyroidism GI: GERD, GI bleed, Ulcers, Hiatal hernia, Colon polyps, Cholelithiasis : None HEENT: Chronic sinusitis, Chronic hearing loss Psych: None Musculoskeletal: Chronic back pain Derm: Herpes zoster - Past Surgical History Past Surgical History: Yes General: Cholecystectomy, Appendectomy, Hiatal hernia repair, Colonoscopy, EGD Ortho: Rotator cuff repair, Carpal Tunnel surgery, Spine surgery, 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, 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 Cardiovascular: Coronary stent, Pacemaker, Cardiac catheterization, Angioplasty HEENT: Cataracts, Other Derm: Skin cancer surgery - Present Medications Home Medications: Ambulatory Orders Medication Instructions Recorded Confirmed Atorvastatin Calcium 10 mg PO HS 01/09/13 12/01/16 Calcium Carbonate/Vitamin D3 1 each PO BID 01/09/13 12/01/16 [Calcium 600 + Vit D 400 Softgl] Fenofibrate 160 mg PO HS 01/09/13 12/01/16 Fluticasone [Flonase] 1 puffs NS QAM 01/09/13 12/01/16 Isosorbide Mononitrate [Isosorbide 60 mg PO DAILY 01/09/13 12/01/16 Mononitrate ER] Levothyroxine [Synthroid] 250 mcg PO QDAC 01/09/13 12/01/16 Magnesium Oxide 400 mg PO DAILY 01/09/13 12/01/16 Olopatadine HCl [Patanol] 1 drop OP BID 01/09/13 12/01/16 traMADol [Ultram] 50 mg PO BID PRN 05/30/13 12/01/16 Albuterol Sulfate [Albuterol 2 puffs Q4H PRN 09/25/14 12/01/16 Sulfate Hfa] Valsartan [Diovan] 160 mg PO DAILY 09/25/14 12/01/16 Carvedilol 12.5 mg PO BID 01/07/15 12/01/16 Dronedarone HCl [Multaq] 400 mg PO BID 01/07/15 12/01/16 Latanoprost [Xalatan] 1 drop OP DAILY 01/07/15 12/01/16 Furosemide [Lasix] 40 mg PO DAILY PRN 11/21/15 12/01/16 Acetaminophen [Tylenol] 650 mg PO Q4HR PRN #0 tablet 11/24/15 12/01/16 Cetirizine [ZyrTEC] 10 mg PO DAILY 01/05/16 12/01/16 Famotidine [Pepcid] 20 mg PO QPM 01/05/16 12/01/16 Iron Polysaccharide Complex [Pro 180 mg PO TID 06/06/16 12/01/16 Fe] Potassium Chloride 10 meq PO DAILY 06/06/16 12/01/16 Calcium Carbonate [Tums (Calcium 1,500 mg PO BID tablet 06/07/16 12/01/16 Carbonate 500mg)] Hydrocodone/Acetaminophen [[place] 1 each PO Q6H PRN #15 tablet 01/21/18 5-325 Tablet] Naproxen 375 mg PO BID #20 tablet 01/21/18 - Allergies Allergies/Adverse Reactions: Allergies Allergy/AdvReac Type Severity Reaction Status Date / Time hydrochlorothiazide Allergy Severe Anaphylaxis Verified 01/20/18 23:38 sulfamethoxazole Allergy Severe Anaphylaxis Verified 01/20/18 23:38 [From ] trimethoprim [From ] Allergy Severe Anaphylaxis Verified 01/20/18 23:38 amlodipine AdvReac Severe Swelling Verified 01/20/18 23:38 to ankles and feeet atenolol AdvReac Severe Bradycardia Verified 01/20/18 23:38 Penicillins AdvReac Severe Anxiety/Swelling Verified 01/20/18 23:38 and redness at injection site - Social History Does the pt smoke?: No Smoking Status: Never smoker Does the pt drink ETOH?: No Does the pt have substance abuse?: No - Immunizations Immunizations are current?: Yes - POLST Patient has POLST: No PD ED PE NORMAL - Vitals Vital signs reviewed: Yes - General General: Alert and oriented X 3, Well developed/nourished - HEENT HEENT: Atraumatic - Neck Neck: Supple, no meningeal sign, No bony TTP, No adenopathy - Cardiac Cardiac: RRR, No murmur - Respiratory Respiratory: Clear bilaterally - Abdomen Abdomen: Soft, Non tender - Back Back: No spinal TTP - Derm Derm: Normal color, Warm and dry - Extremities Extremities: Other (right knee with abrasion but no effusion and good full ROM without pain. No bony tenderness. Right forearm tender distally without obvious deformity. Normal color, pulses, sensation and motor in hand/wrist. Right upper arm with tenderness at proximal humerus. No gross deformity. ) - Neuro Neuro: Alert and oriented X 3, No motor deficit, No sensory deficit, Normal speech Eye Opening: Spontaneous Motor: Obeys Commands Verbal: Oriented GCS Score: 15 Results - Vitals Vitals: Vital Signs - 24 hr 01/20/18 01/21/18 01/21/18 23:31 01:38 02:25 Temperature 36.5 C 36.6 C Heart Rate 59 L 63 61 Respiratory 20 20 20 Rate Blood Pressure 146/85 H 144/72 H 149/49 H O2 Saturation 96 93 96 Oxygen O2 Source Room air - Rads (name of study) forearm right Radiology: Prelim report reviewed, EMP read contemporaneously (no fractures nor deformity) right humerus Radiology: Prelim report reviewed (impacted humeral neck fracture), EMP read contemporaneously PD MEDICAL DECISION MAKING - ED course Complexity details: reviewed results, considered differential, d/w patient Departure - Departure Disposition: 01 Home, Self Care Clinical Impression: Fall from slip, trip, or stumble Qualifiers: Encounter type: initial encounter Qualified Code(s): W01.0XXA - Fall on same level from slipping, tripping and stumbling without subsequent striking against object, initial encounter Right wrist sprain Qualifiers: Encounter type: initial encounter Qualified Code(s): S63.501A - Unspecified sprain of right wrist, initial encounter Fracture of neck of humerus Qualifiers: Encounter type: initial encounter Fracture type: closed Laterality: right Qualified Code(s): S42.211A - Unspecified displaced fracture of surgical neck of right humerus, initial encounter for closed fracture Condition: Stable Record reviewed to determine appropriate education?: Yes Instructions: ED Fx Shoulder Follow-Up: ANT VIVEROS MD [Primary Care Provider] - [facility] [Provider Group] Prescriptions: Hydrocodone/Acetaminophen [[place] 5-325 Tablet] 1 each PO Q6H PRN #15 tablet PRN Reason: Pain Naproxen 375 mg PO BID #20 tablet Comments: Use the sling to reduce shoulder movement at the fracture. He will need this for 4-6 weeks. Follow-up with orthopedics in about a week, call Monday for an appointment. Initially not to do any range of motion on this with the initial early healing. However you do not want it to get "frozen" and so at some point he will be directed to start gentle range of motion exercises. Follow-up with orthopedics within the week to get better guidance on when to start that. Use anti-inflammatories such as naproxen twice daily and add Tylenol or pain medicine as needed. Rest and sleep in the best position of comfort. Sometimes that in a recliner or with several pillows propped up so that the arm is downward with the sling. Discharge Date/Time: 01/21/18 02:36
[2018-01-21] MEDS ORDERED: HYDROmorphone 1 MG/ML CARPUJECT IM STA (01:12)
[2018-01-21] MEDS ORDERED: KETOROLAC 30 MG/ML VIAL IM STA (01:12)
[2018-01-21] MEDS ORDERED: oxyCODONE/ACET 5/325 Prepack 4 PO STA (01:12)
[2018-01-21] MEDS ORDERED: HYDROmorphone 1 MG/ML CARPUJECT IVP STA (01:21)
[2018-01-21] MEDS ORDERED: KETOROLAC 15 MG/ML VIAL IVP STA (01:21)
--- NOTE | 2018-01-21 01:25 | XRAY Report ---
Reason: fall with injury to right arm/forearm Procedure Date: 01/21/2018 Accession Number: [id number] / [id number] Procedure: XR - Humerus RT CPT Code: FULL RESULT: EXAM: RIGHT HUMERUS RADIOGRAPHY EXAM DATE: 01/21/2018 01:18 AM. CLINICAL HISTORY: Fall with injury to right arm/forearm. COMPARISON: None. TECHNIQUE: 2 views. FINDINGS: Bones: There is an impacted mildly angulated proximal humeral shaft fracture. Joints: Degenerative changes in the shoulder. Visualization of the elbow is limited. Soft Tissues: Proximal soft tissue swelling. IMPRESSION: Impacted and mildly angulated proximal humeral fracture. [facility]
--- NOTE | 2018-01-21 01:28 | XRAY Report ---
Reason: fall with injury right arm/forearm Procedure Date: 01/21/2018 Accession Number: [id number] / [id number] Procedure: XR - Forearm RT CPT Code: FULL RESULT: EXAM: RIGHT FOREARM RADIOGRAPHY EXAM DATE: 01/21/2018 01:24 AM. CLINICAL HISTORY: Fall with injury right arm/forearm. COMPARISON: HUMERUS RT 01/20/2018 11:51 PM. TECHNIQUE: 2 views. FINDINGS: Bones: Normal. No fractures or bone lesions. 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 The elbow appears unremarkable. Soft Tissues: Normal. No soft tissue swelling. IMPRESSION: Osteoarthritis. No evidence of acute fracture. [facility]
[2018-01-21 02:28] VITALS: BP 149/49
== END 2018-01-21 02:36 | disposition home or self-care (01) ==
LOC: EDUNIT# → ED 23:28
DX: S63.501A Unspecified sprain of right wrist, initial encounter (principal); S42.211A Unspecified displaced fracture of surgical neck of right humerus, initial encounter for closed fracture; S80.211A Abrasion, right knee, initial encounter; W01.0XXA Fall on same level from slipping, tripping and stumbling without subsequent striking against object, initial encounter; Y93.01 Activity, walking, marching and hiking; Y92.009 Unspecified place in unspecified non-institutional (private) residence as the place of occurrence of the external cause; I11.0 Hypertensive heart disease with heart failure; I50.9 Heart failure, unspecified; I25.119 Atherosclerotic heart disease of native coronary artery with unspecified angina pectoris; I25.2 Old myocardial infarction; J44.9 Chronic obstructive pulmonary disease, unspecified; Z95.5 Presence of coronary angioplasty implant and graft; Z95.0 Presence of cardiac pacemaker
CPT/HCPCS: 96374; 96375; 99284

== ENCOUNTER 2018-12-30 22:31 | Emergency (ER) | payer MEDICARE, OTHER ==
[2018-12-30 22:48] LABS: BASOPHILS # (AUTO) 0.1 10^3/uL (0.0-0.1); BASOPHILS % (AUTO) 0.5 %; EOSINOPHILS # (AUTO) 0.2 10^3/uL (0.0-0.7); EOSINOPHILS % (AUTO) 1.5 %; HGB - HEMOGLOBIN 17.3 g/dL (12.0-16.0); LYMPHOCYTES # (AUTO) 2.1 10^3/uL (1.5-3.5); LYMPHOCYTES % (AUTO) 18.2 %; MEAN CORPUSCULAR HEMOGLOBIN 30.8 pg (27.0-31.0); MEAN CORPUSCULAR HGB CONC 32.5 g/dL (32.0-36.0); MEAN CORPUSCULAR VOLUME 94.8 fL (81.0-99.0); MEAN PLATELET VOLUME 11.1 fL (7.9-10.8); MONOCYTES # (AUTO) 0.7 10^3/uL (0.0-1.0); MONOCYTES % (AUTO) 5.9 %; NEUTROPHILS # (AUTO) 8.3 10^3/uL (1.5-6.6); PLT - PLATELET COUNT 246 10^3/uL (130-450); RED BLOOD COUNT 5.62 10^6/uL (4.20-5.40); RED CELL DISTRIBUTION WIDTH 13.9 % (12.0-15.0); WHITE BLOOD COUNT 11.4 x10^3/uL (4.8-10.8)
[2018-12-30] MEDS ORDERED: ONDANSETRON 4 MG/2 ML VIAL IVP STA (22:52)
[2018-12-30] MEDS ORDERED: HYDROmorphone 1 MG/ML CARPUJECT IVP STA (22:52)
[2018-12-30] MEDS ORDERED: SODIUM CHLORIDE 0.9% 1,000 ML IV ONE (22:53)
--- NOTE | 2018-12-30 22:56 | ED Physician Documentation ---
PD HPI ABD PAIN - Stated complaint Stated Complaint: ABD PX - Chief complaint Chief Complaint: Abd Pain - History obtained from History obtained from: Patient, Family - History of Present Illness Timing - onset: How many hours ago (4) Timing - duration: Hours (4) Timing - details: Abrupt onset Pain level max: 9 Pain level now: 7 Quality: Cramping, Aching, Pain Location: All over / everywhere Radiation: No: Chest, , Lower back, Left flank, Left shoulder, Right flank, Right shoulder, Upper back Improved by: Other (nothing) Worsened by: Moving, Palpation Associated symptoms: Nausea. No: Fever, Vomiting, Hematemesis, Diarrhea, Constipation, Melena Similar symptoms before: Has not had sx before Recently seen: Not recently seen - Additional information Additional information: Patient is status post a hysterectomy, cholecystectomy and appendectomy in the past. States abdominal pain started after eating spaghetti and meatballs tonight. No recent surgeries. Review of Systems Ten Systems: 10 systems reviewed and negative Constitutional: denies: Fever, Chills Throat: denies: Sore throat Cardiac: denies: Chest pain / pressure Respiratory: denies: Cough GI: denies: Vomiting, Diarrhea Skin: denies: Rash Musculoskeletal: denies: Neck pain, Back pain Neurologic: denies: Headache PD PAST MEDICAL HISTORY - Past Medical History Cardiovascular: Congestive heart failure, Hypertension, High cholesterol, Coronary artery disease, Angina, [place] Respiratory: COPD, Emphysema, Shortness of breath, Sleep apnea Endocrine/Autoimmune: HyPOthyroidism GI: GERD, GI bleed, Ulcers, Hiatal hernia, Colon polyps, Cholelithiasis : None HEENT: Chronic sinusitis, Chronic hearing loss Psych: None Musculoskeletal: Chronic back pain Derm: Herpes zoster - Past Surgical History Past Surgical History: Yes General: Cholecystectomy, Appendectomy, Hiatal hernia repair, Colonoscopy, EGD Ortho: Rotator cuff repair, Carpal Tunnel surgery, Spine surgery, Other /CRYSTALIZER TENDER: Hysterectomy, Oophrectomy Cardiovascular: Coronary stent, Pacemaker, Cardiac catheterization, Angioplasty HEENT: Cataracts, Other Derm: Skin cancer surgery - Present Medications Home Medications: Ambulatory Orders Medication Instructions Recorded Confirmed Atorvastatin Calcium 10 mg PO HS 01/09/13 12/30/18 Calcium Carbonate/Vitamin D3 1 each PO BID 01/09/13 12/01/16 [Calcium 600 + Vit D 400 Softgl] Fenofibrate 160 mg PO HS 01/09/13 12/01/16 Fluticasone [Flonase] 1 puffs NS QAM 01/09/13 12/30/18 Isosorbide Mononitrate [Isosorbide 60 mg PO DAILY 01/09/13 12/30/18 Mononitrate ER] Levothyroxine [Synthroid] 250 mcg PO QDAC 01/09/13 12/30/18 Magnesium Oxide 400 mg PO DAILY 01/09/13 12/01/16 Olopatadine HCl [Patanol] 1 drop OP BID 01/09/13 12/01/16 traMADol [Ultram] 50 mg PO BID PRN 05/30/13 12/30/18 Albuterol Sulfate [Albuterol 2 puffs Q4H PRN 09/25/14 12/01/16 Sulfate Hfa] Valsartan [Diovan] 160 mg PO DAILY 09/25/14 12/01/16 Carvedilol 12.5 mg PO BID 01/07/15 12/01/16 Dronedarone HCl [Multaq] 400 mg PO BID 01/07/15 12/30/18 Latanoprost [Xalatan] 1 drop OP DAILY 01/07/15 12/01/16 Furosemide [Lasix] 40 mg PO DAILY PRN 11/21/15 12/01/16 Acetaminophen [Tylenol] 650 mg PO Q4HR PRN #0 tablet 11/24/15 12/01/16 Cetirizine [ZyrTEC] 10 mg PO DAILY 01/05/16 12/01/16 Famotidine [Pepcid] 20 mg PO QPM 01/05/16 12/01/16 Iron Polysaccharide Complex [Pro 180 mg PO TID 06/06/16 12/01/16 Fe] Potassium Chloride 10 meq PO DAILY 06/06/16 12/01/16 Calcium Carbonate [Tums (Calcium 1,500 mg PO BID tablet 06/07/16 12/01/16 Carbonate 500mg)] Hydrocodone/Acetaminophen [Vona 1 each PO Q6H PRN #15 tablet 01/21/18 5-325 Tablet] Naproxen 375 mg PO BID #20 tablet 01/21/18 Fexofenadine HCl 1 tab DAILY 12/30/18 12/30/18 Metoprolol Succinate [Toprol Xl] 1 tab DAILY 12/30/18 12/30/18 Salmeterol Xinafoate [Serevent 1 puffs 12/30/18 Diskus] amLODIPine [Norvasc] 1 tab DAILY 12/30/18 12/30/18 Hydrocodone/Acetaminophen 1 - 2 each PO Q6H PRN #7 tablet 12/31/18 [Hydrocodon-Acetaminophen 5-325] - Allergies Allergies/Adverse Reactions: Allergies Allergy/AdvReac Type Severity Reaction Status Date / Time hydrochlorothiazide Allergy Severe Anaphylaxis Verified 12/30/18 22:38 sulfamethoxazole Allergy Severe Anaphylaxis Verified 12/30/18 22:38 [From ] trimethoprim [From ] Allergy Severe Anaphylaxis Verified 12/30/18 22:38 amlodipine AdvReac Severe Swelling Verified 12/30/18 22:38 to ankles and feeet atenolol AdvReac Severe Bradycardia Verified 12/30/18 22:38 Penicillins AdvReac Severe Anxiety/Swelling Verified 12/30/18 22:38 and redness at injection site - Social History Does the pt smoke?: No Smoking Status: Never smoker Does the pt drink ETOH?: No Does the pt have substance abuse?: No - Immunizations Immunizations are current?: Yes - POLST Patient has POLST: No PD ED PE NORMAL - Vitals Vital signs reviewed: Yes - General General: Alert and oriented X 3, No acute distress, Well developed/nourished - HEENT HEENT: PERRL, Moist mucous membranes - Neck Neck: Supple, no meningeal sign - Cardiac Cardiac: RRR, Strong equal pulses - Respiratory Respiratory: No respiratory distress, Clear bilaterally - Abdomen Abdomen: Soft, Non distended, Other (diffusely TTP, no peritoneal signs) - Back Back: No CVA TTP, No spinal TTP - Derm Derm: Warm and dry - Extremities Extremities: No edema, No calf tenderness / cord - Neuro Neuro: Alert and oriented X 3 - Psych Psych: Normal mood, Normal affect Results - Vitals Vitals: Vital Signs - 24 hr 12/30/18 12/31/18 22:41 01:39 Temperature 36.7 C Heart Rate 66 61 Respiratory 16 18 Rate Blood Pressure 220/57 H 180/78 H O2 Saturation 99 95 Oxygen O2 Source Room air - Labs Labs: Laboratory Tests 12/30/18 12/30/18 12/30/18 22:45 22:45 22:50 WBC 11.4 H RBC 5.62 H Hgb 17.3 H Hct 53.3 H MCV 94.8 MCH 30.8 MCHC 32.5 RDW 13.9 Plt Count 246 MPV 11.1 H Neut # (Auto) 8.3 H Lymph # (Auto) 2.1 [place] # (Auto) 0.7 Eos # (Auto) 0.2 Baso # (Auto) 0.1 Absolute Nucleated RBC 0.00 Nucleated RBC % 0.0 Sodium 141 Potassium 4.3 Chloride 103 Carbon Dioxide 27 Anion Gap 11.0 BUN 19 Creatinine 0.7 Estimated GFR (MDRD) 80 L Glucose 185 H Lactic Acid Calcium 10.0 Total Bilirubin 0.9 AST 25 ALT 33 Alkaline Phosphatase 91 Total Protein 8.2 Albumin 4.5 Globulin 3.7 Albumin/Globulin Ratio 1.2 Lipase 22 Urine Color YELLOW Urine Clarity CLEAR Urine pH 5.5 Ur Specific [place] 1.025 Urine Protein TRACE Urine Glucose (UA) NEGATIVE Urine Ketones NEGATIVE Urine Occult Blood TRACE-INTA Urine Nitrite NEGATIVE Urine Bilirubin NEGATIVE Urine Urobilinogen 0.2 (NORMAL) Ur Leukocyte Esterase NEGATIVE Ur Microscopic Review NOT INDICATED Urine Culture Comments NOT INDICATED 12/30/18 22:58 WBC RBC Hgb Hct MCV MCH MCHC RDW Plt Count MPV Neut # (Auto) Lymph # (Auto) [place] # (Auto) Eos # (Auto) Baso # (Auto) Absolute Nucleated RBC Nucleated RBC % Sodium Potassium Chloride Carbon Dioxide Anion Gap BUN Creatinine Estimated GFR (MDRD) Glucose Lactic Acid 1.7 Calcium Total Bilirubin AST ALT Alkaline Phosphatase Total Protein Albumin Globulin Albumin/Globulin Ratio Lipase Urine Color Urine Clarity Urine pH Ur Specific [place] Urine Protein Urine Glucose (UA) Urine Ketones Urine Occult Blood Urine Nitrite Urine Bilirubin Urine Urobilinogen Ur Leukocyte Esterase Ur Microscopic Review Urine Culture Comments - Rads (name of study) CT abd/pelvis Radiology: Prelim report reviewed, EMP read contemporaneously, See rad report (No acute process seen in the abdomen or pelvis. Severe coronary artery and abdominal aorta atherosclerotic calcifications. Moderate T11 vertebral body compression fracture, age indeterminate. Colonic diverticulosis. Status post c holecystectomy. ) PD MEDICAL DECISION MAKING - ED course Complexity details: reviewed results, re-evaluated patient, considered differ ential, d/w patient, d/w family ED course: Symptoms improved in the emergency department. Tolerating p.o. without difficulty. Possible mesenteric ischemia? She is tender on examination, but this resolved. Normal lactate. Have her follow-up with her doctor for further care. She is well-appearing, nontoxic. Afebrile. Patient states that this is happened to her several times in the past. She describes the pain as a cramping. Patient counseled regarding signs and symptoms for which I believe and urgent re-evaluation would be necessary. Patient with good understanding of and agreement to plan and is comfortable going home at this time This document was made in part using voice recognition software. While efforts are made to proofread this document, sound alike and grammatical errors may occur. Departure - Departure Disposition: 01 Home, Self Care Clinical Impression: Abdominal pain Qualifiers: Abdominal location: unspecified location Qualified Code(s): R10.9 - Unspecified abdominal pain Condition: Good Instructions: ED Abdominal Pain Unkn Cause Follow-Up: JEREMIAH KELLEY MD [Primary Care Provider] - Within 1 week Prescriptions: Hydrocodone/Acetaminophen [Hydrocodon-Acetaminophen 5-325] 1 - 2 each PO Q6H PRN #7 tablet PRN Reason: pain Comments: Your testing does not reveal any reason for your abdominal pain tonight. Hopefully this improves over the next 24 hours. Return if you worsen. Do not drink alcohol or drive while on narcotic pain medicine. Note that many narcotic pain relievers also contain tylenol/acetaminophen. Please ensure that your total dose of acetaminophen from all sources does not exceed 3 grams (3000mg) per day. You may constipated on this medication, take a stool softener such as "Colace" twice a day while you are on it. Also recommend a [id number] laxative such as senna or MiraLAX any day that you do not have a bowel movement. If you received narcotic pain medication in the emergency department, do not drive or operate machinery for the next 24 hours. Discharge Date/Time: 12/31/18 01:56
[2018-12-30 22:57] LABS: BILIRUBIN,URINE NEGATIVE (NEGATIVE); GLUCOSE, URINE (UA) NEGATIVE (NEGATIVE); KETONES,URINE (UA) NEGATIVE (NEGATIVE); LEUKOCYTE ESTERASE, URINE NEGATIVE (NEGATIVE); NITRITE,URINE NEGATIVE (NEGATIVE); OCCULT BLOOD,URINE TRACE-INTA (NEGATIVE); PH,URINE 5.5 PH (5.0-7.5); PROTEIN,URINE TRACE mg/dL (NEGATIVE); UROBILINOGEN,URINE 0.2 (NORMAL) E.U./dL (NORMAL)
[2018-12-30 22:59] LABS: CLARITY,URINE CLEAR (CLEAR)
[2018-12-30 23:05] LABS: ALBUMIN 4.5 g/dL (3.2-5.5); ALBUMIN/GLOBULIN RATIO 1.2 (1.0-2.2); BILIRUBIN,TOTAL 0.9 mg/dL (0.2-1.0); CREATININE 0.7 mg/dL (0.4-1.0); TOTAL PROTEIN 8.2 g/dL (6.7-8.2)
[2018-12-30] MEDS ORDERED: IOVERSOL 320 100 ML VIAL IVP ONE (23:59)
[2018-12-31] MEDS ORDERED: IOVERSOL 320 100 ML VIAL IVP ONE (00:29)
--- NOTE | 2018-12-31 00:47 | CT Report ---
Reason: diffuse abd pain, nausea Procedure Date: 12/31/2018 Accession Number: [id number] / [id number] Procedure: CT - Abdomen/Pelvis W CPT Code: Final Report FULL RESULT: EXAM: CT ABDOMEN AND PELVIS EXAM DATE: 12/31/2018 12:25 AM. CLINICAL HISTORY: Diffuse abd pain, nausea. COMPARISONS: ABDOMEN/PELVIS W/O 11/29/2015 5:19 PM. TECHNIQUE: Routine helical CT imaging was performed through the abdomen and pelvis. IV contrast: OPTI 320 100ML. Enteric contrast: No. Reconstructions: Coronal and sagittal. In accordance with CT protocol optimization, one or more of the following dose reduction techniques were utilized for this exam: automated exposure control, adjustment of mA and/or KV based on patient size, or use of iterative reconstructive technique. FINDINGS: Lung Bases: Enlargement of the left atrium and severe coronary artery calcifications. Cardiac leads in the regions of the left atrium and apex of the right ventricle. Liver: Normal. No masses. Gallbladder/Bile Ducts: Unremarkable. Spleen: The lateral margin of the spleen is by chronic low density and calcification which may reflect prior infarct/trauma. Pancreas: Normal. Adrenal Glands: Normal. Kidneys: Normal. No masses or hydronephrosis. Peritoneal Cavity/Bowel: Colonic diverticula. Otherwise, normal caliber and contour of the bowel.. No free fluid, free air or adenopathy. No masses or acute inflammatory process. The appendix is not visualized; however, no inflammatory changes at the base of the cecum. Pelvic Organs: Normal. The bladder and visualized pelvic organs are within normal limits. Vasculature: Severe atherosclerotic calcifications involving the abdominal aorta and its major branch vessels. No aneurysms or other significant abnormality. Bones: Status post L4-L5 laminectomies with mild anterolisthesis of L4-L5. Moderate T11 vertebral body compression fracture. Other: None. IMPRESSION: No acute process seen in the abdomen or pelvis. Severe coronary artery and abdominal aorta atherosclerotic calcifications. Moderate T11 vertebral body compression fracture, age indeterminate. Colonic diverticulosis. Status post cholecystectomy. RADIA
[2018-12-31] MEDS ORDERED: oxyCODONE 5 MG TABLET PO STA (00:57)
[2018-12-31] MEDS ORDERED: LIDOCAINE VISCOUS 2% 15 ML UDC MM STA (00:58)
[2018-12-31] MEDS ORDERED: MAG HYDROX/AL HYDROX/SIMETH 30 ML UDC PO STA (00:58)
[2018-12-31] MEDS ORDERED: SUCRALFATE 1 GM/10 ML UDC PO STA (00:58)
[2018-12-31] MEDS ORDERED: DICYCLOMINE 10 MG CAPSULE PO STA (01:36)
[2018-12-31 01:39] VITALS: BP 180/78
== END 2018-12-31 01:56 | disposition home or self-care (01) ==
LOC: ED 22:31
DX: R10.9 Unspecified abdominal pain (principal); I10 Essential (primary) hypertension; E78.00 Pure hypercholesterolemia, unspecified; I25.10 Atherosclerotic heart disease of native coronary artery without angina pectoris; I25.2 Old myocardial infarction; E03.9 Hypothyroidism, unspecified; Z95.5 Presence of coronary angioplasty implant and graft; Z95.0 Presence of cardiac pacemaker
CPT/HCPCS: 36415; 74177; 80053; 81003; 83605; 83690; 85025; 96374; 99284; A9270; J1170; Q9967; 81001; 87086

== ENCOUNTER 2020-09-22 13:53 | Outpatient (CLI) | payer MEDICARE, OTHER ==
[2020-09-22 18:11] LABS: ALBUMIN 3.9 g/dL (3.2-5.5); ALBUMIN/GLOBULIN RATIO 1.2 (1.0-2.2); ALKALINE PHOSPHATASE 76 IU/L (42-121); ALT ALANINE AMINOTRANSFERASE 24 IU/L (10-60); AST ASPARTATE AMINOTRANSFERASE 20 IU/L (10-42); BUN - BLOOD UREA NITROGEN 20 mg/dL (6-20); CHOL/HDL RATIO 2.2 (<4.4); CHOLESTEROL 121 mg/dL; CREATININE 0.9 mg/dL (0.4-1.0); GFR - MDRD 59 (>89); HDL CHOLESTEROL 56 mg/dL; LDL CHOLESTEROL,CALCULATED 40 mg/dL; LDL/HDL RATIO 0.7 (<4.4); TOTAL PROTEIN 7.2 g/dL (6.7-8.2); TRIGLYCERIDES 126 mg/dL; VLDL CHOLESTEROL 25 mg/dL
[2020-09-22 18:14] LABS: CALCIUM 8.8 mg/dL (8.5-10.3); CARBON DIOXIDE - CO2 27 mmol/L (21-32); CHLORIDE 101 mmol/L (101-111); GLUCOSE 140 mg/dL (70-100); POTASSIUM 4.3 mmol/L (3.5-5.0); SODIUM 137 mmol/L (135-145)
== END 2020-09-22 13:54 | disposition home or self-care (01) ==
LOC: LAB.N 13:53
PROVIDERS: ATTEND Internal Medicine Cardiovascular Disease
DX: I48.91 Unspecified atrial fibrillation (principal); I25.10 Atherosclerotic heart disease of native coronary artery without angina pectoris; I50.32 Chronic diastolic (congestive) heart failure; I70.213 Atherosclerosis of native arteries of extremities with intermittent claudication, bilateral legs
CPT/HCPCS: 36415; 80053; 80061; 83721

== ENCOUNTER 2020-09-27 23:57 | Outpatient (CLI) | payer MEDICARE, OTHER | END 2020-09-27 23:58 | disposition critical access hospital (66) | LOC: EMS 23:57 | DX: R06.02 Shortness of breath (principal) | CPT/HCPCS: A0425; A0429 ==

== ENCOUNTER 2020-10-10 14:17 | Emergency (ER) | payer MEDICARE, OTHER ==
[2020-10-10] MEDS ORDERED: IPRATROPIUM/ALBUTEROL 3 ML NEB INH STA (14:54)
[2020-10-10] MEDS ORDERED: IOPAMIDOL-300 100 ML VIAL ONE (14:59)
--- NOTE | 2020-10-10 15:01 | ED Physician Documentation ---
PD HPI DYSPNEA - Stated complaint Stated Complaint: SOA - Chief complaint Chief Complaint: Resp - History obtained from History obtained from: Patient, Family - History of Present Illness Timing - onset: Last night Timing - onset during: Rest Timing - duration: Days (1) Timing - details: Gradual onset, Still present Inciting event(s): URI Improved by: O2, Lasix, Inhaler/neb, Rest, Sitting up Worsened by: Exertion Associated symptoms: Cough, Bilateral edema. No: Fever, Wheezing, Chest pain / discomfort, Palpitations, Diaphoresis, Unilateral edema Similar symptoms before: Diagnosis (pneumonia, CHF, COPD) Recently seen: Admitted - Additional information Additional information: 85-year-old female with a history of COPD, CHF and pneumonia who was admitted to [facility] with pneumonia 2 weeks ago, was seen by her town marshal 2 days ago. She was taken off of her oxygen after an ambulatory test and her lasix was increased for 3 days for extremity swelling. She has developed increased exertional dyspnea and has returned to the hospital for evaluation. Review of Systems Constitutional: denies: Fever Eyes: denies: Decreased vision Ears: denies: Ear pain Nose: denies: Congestion Throat: denies: Sore throat Cardiac: reports: Pedal edema. denies: Chest pain / pressure, Palpitations Respiratory: reports: Dyspnea, Cough, Wheezing GI: denies: Abdominal Pain, Nausea, Vomiting : denies: Dysuria, Frequency PD PAST MEDICAL HISTORY - Past Medical History Cardiovascular: Congestive heart failure, Hypertension, High cholesterol, Coronary artery disease, Peripheral Vascular Disease, Angina, [place], Atrial fibrillation (paroxysmal), Arrhythmia (tachy/roopa syndrome) Respiratory: COPD, Emphysema, Shortness of breath, Sleep apnea Neuro: TIA Endocrine/Autoimmune: Type 2 diabetes, HyPOthyroidism GI: GERD, GI bleed, Ulcers, Hiatal hernia, Colon polyps, Cholelithiasis : None HEENT: Chronic sinusitis, Chronic hearing loss Psych: None Musculoskeletal: Osteoarthritis, Chronic back pain Derm: Herpes zoster - Past Surgical History Past Surgical History: Yes General: Cholecystectomy, Appendectomy, Hiatal hernia repair, Colonoscopy, EGD Ortho: Rotator cuff repair, Carpal Tunnel surgery, Spine surgery, Other /CONTRACT AGENT: Hysterectomy, Oophrectomy Cardiovascular: Coronary stent, Pacemaker, Cardiac catheterization, Angioplasty HEENT: Cataracts, Other Derm: Skin cancer surgery - Present Medications Home Medications: Ambulatory Orders Medication Instructions Recorded Confirmed Fluticasone [Flonase] 1 puffs NS BID 01/09/13 10/10/20 Olopatadine HCl [Patanol] 1 drop OP BID 01/09/13 10/10/20 traMADol [Ultram] 50 mg PO BID PRN 05/30/13 10/10/20 Dronedarone HCl [Multaq] 400 mg PO BID 01/07/15 10/10/20 Latanoprost [Xalatan] 1 drop OP DAILY 01/07/15 10/10/20 Fexofenadine HCl 180 mg PO DAILY 06/26/20 10/10/20 Losartan [Cozaar] 100 mg PO DAILY PM 06/26/20 10/10/20 Metoprolol Succinate [Toprol Xl] 25 mg PO DAILY 06/26/20 10/10/20 Nystatin 2 applic TOP BID 06/26/20 10/10/20 Albuterol 2.5 mg INH Q4H PRN 07/07/20 10/10/20 Atorvastatin [Lipitor] 10 mg PO DAILY PM 07/07/20 10/10/20 Isosorbide Mononitrate [Isosorbide 60 mg PO DAILY 07/07/20 10/10/20 Mononitrate ER] Levothyroxine Sodium [Synthroid] 250 mcg PO DAILY 07/07/20 10/10/20 amLODIPine [Norvasc] 10 mg PO DAILY 07/07/20 10/10/20 Acetaminophen [Tylenol] 650 mg PO Q6H PRN 10/10/20 10/10/20 Amox/Clav 875/125 [Augmentin] 1 each PO Q12H #20 tablet 10/10/20 Azithromycin [Zithromax] 250 mg PO DAILY #6 tablet 10/10/20 Fluticasone/Salmeterol [Advair 1 each IH DAILY 10/10/20 10/10/20 250-50 Diskus] Furosemide [Lasix] 20 mg PO DAILY 10/10/20 10/10/20 Hydrocortisone 1% Cream 1 applic TOP BID 10/10/20 10/10/20 [Hydrocortisone] predniSONE [Deltasone] 40 mg PO DAILY 5 Days #10 tablet 10/10/20 prednisoLONE 1% OPHTH DROPS [Pred 1 drops OPTH BID 10/10/20 10/10/20 Forte 1% Ophth Drops] - Allergies Allergies/Adverse Reactions: Allergies Allergy/AdvReac Type Severity Reaction Status Date / Time hydrochlorothiazide Allergy Severe Anaphylaxis Verified 10/10/20 14:21 sulfamethoxazole Allergy Severe Anaphylaxis Verified 10/10/20 14:21 [From ] trimethoprim [From ] Allergy Severe Anaphylaxis Verified 10/10/20 14:21 amlodipine AdvReac Severe Swelling Verified 10/10/20 14:21 to ankles and feeet atenolol AdvReac Severe Bradycardia Verified 10/10/20 14:21 Penicillins AdvReac Severe Anxiety/Swelling Verified 10/10/20 14:21 and redness at injection site - Social History Does the pt smoke?: No Smoking Status: Never smoker Does the pt drink ETOH?: No Does the pt have substance abuse?: No - Immunizations Immunizations are current?: Yes - POLST Patient has POLST: No PD ED PE NORMAL - Vitals Vital signs reviewed: Yes (hypertensive ) - General General: Alert and oriented X 3, No acute distress, Well developed/nourished - HEENT HEENT: Atraumatic, PERRL - Neck Neck: Supple, no meningeal sign, No bony TTP - Cardiac Cardiac: RRR, No murmur - Respiratory Respiratory: No respiratory distress, Clear bilaterally - Abdomen Abdomen: Normal bowel sounds, Soft, Non tender, Non distended, No organomegaly - Back Back: No CVA TTP, No spinal TTP - Derm Derm: Normal color, Warm and dry, No rash - Extremities Extremities: No deformity, No tenderness to palpate, Normal ROM s pain, No calf tenderness / cord, Other (mild edema bilat. ) - Neuro Neuro: Alert and oriented X 3, waterproofer helper 2-12 intact, No motor deficit, No sensory deficit, Normal speech Eye Opening: Spontaneous Motor: Obeys Commands Verbal: Oriented GCS Score: 15 - Psych Psych: Normal mood, Normal affect Results - Vitals Vitals: Vital Signs - 24 hr 10/10/20 10/10/20 10/10/20 14:21 15:07 15:17 Temperature 36.6 C 36.6 C Heart Rate 70 70 70 Respiratory 16 19 14 Rate Blood Pressure 158/60 H 149/61 H O2 Saturation 98 96 10/10/20 10/10/20 10/10/20 16:30 16:35 18:00 Temperature 36.7 C Heart Rate 76 70 Respiratory 20 20 16 Rate Blood Pressure 173/69 H O2 Saturation 87 L 99 99 Oxygen O2 Source Nasal cannula Oxygen Flow Rate 2 - EKG (time done) 1530 Rate: Rate (enter#) (70) Rhythm: Atrial fibrillation, Paced Compare to prior EKG: Changed from prior EKG (SPT 12-01-2016 rhythm is now paced. ) Computer interpretation: Agree with computer - Labs Labs: Laboratory Tests 10/10/20 10/10/20 10/10/20 15:05 15:05 15:05 WBC 10.8 RBC 4.95 Hgb 15.3 Hct 47.7 H MCV 96.4 MCH 30.9 MCHC 32.1 RDW 14.7 Plt Count 223 MPV 11.1 H Neut # (Auto) 7.8 H Lymph # (Auto) 2.0 [place] # (Auto) 0.9 Eos # (Auto) 0.1 Baso # (Auto) 0.1 Absolute Nucleated RBC 0.00 Nucleated RBC % 0.0 Sodium 142 Potassium 3.6 Chloride 100 L Carbon Dioxide 28 Anion Gap 14.0 H BUN 21 H Creatinine 0.9 Estimated GFR (MDRD) 59 L Glucose 137 H Calcium 8.9 Total Bilirubin 1.1 H AST 21 ALT 29 Alkaline Phosphatase 64 Troponin I High Sens B-Natriuretic Peptide 125 H Total Protein 7.1 Albumin 4.1 Globulin 3.0 Albumin/Globulin Ratio 1.4 Lipase 19 L 10/10/20 15:05 WBC RBC Hgb Hct MCV MCH MCHC RDW Plt Count MPV Neut # (Auto) Lymph # (Auto) [place] # (Auto) Eos # (Auto) Baso # (Auto) Absolute Nucleated RBC Nucleated RBC % Sodium Potassium Chloride Carbon Dioxide Anion Gap BUN Creatinine Estimated GFR (MDRD) Glucose Calcium Total Bilirubin AST ALT Alkaline Phosphatase Troponin I High Sens 7.0 B-Natriuretic Peptide Total Protein Albumin Globulin Albumin/Globulin Ratio Lipase - Rads (name of study) CTA chest Radiology: Prelim report reviewed (Impression: No evidence of pulmonary embolism, aortic dissection or aneurysm. Cardiomegaly, pacemaker and atherosclerotic aortic vascular calcification present. Bilateral pulmonary groundglass densities may reflect of pulmonary edema, pneumonitis or viral pneumonia), EMP read indepedently, See rad report Procedures - IVC sono (time) 1545 Bedside IVC sono: IVC measures (cm) (1.71), Euvolemia PD MEDICAL DECISION MAKING - ED course Complexity details: reviewed results, re-evaluated patient, considered differential, d/w patient ED course: 85-year-old female with recent admission for pneumonia has symptoms again of increased shortness of breath with exertion. Today CT angiogram of the chest was obtained and there is no evidence of pulmonary embolism. The patient's inferior vena cava is interrogated at the bedside with ultrasound and this shows a vessel that is 1.7 cm in diameter and collapses with respiration. This is not consistent with failure. The patient does have a groundglass appearance on her CT of her chest and this is not likely related to edema. Pneumonitis and viral pneumonia remain on the differential. The patient has been immunized against Covid as she has recently been tested. We will test her again today we will treat her for atypical pneumonia and we will add in a short course of steroid as well. Departure - Departure Disposition: 01 Home, Self Care Clinical Impression: Pneumonia Qualifiers: Pneumonia type: due to unspecified organism Laterality: bilateral Lung location: unspecified part of lung Qualified Code(s): J18.9 - Pneumonia, unspecified organism Condition: Stable Instructions: ED Pneumonia Adult Follow-Up: JEREMIAH KELLEY MD [Primary Care Provider] - Prescriptions: Amox/Clav 875/125 [Augmentin] 1 each PO Q12H #20 tablet predniSONE [Deltasone] 40 mg PO DAILY 5 Days #10 tablet Azithromycin [Zithromax] 250 mg PO DAILY #6 tablet Discharge Date/Time: 10/10/20 18:05
[2020-10-10 15:15] LABS: BASOPHILS # (AUTO) 0.1 10^3/uL (0.0-0.1); BASOPHILS % (AUTO) 0.6 %; EOSINOPHILS # (AUTO) 0.1 10^3/uL (0.0-0.7); EOSINOPHILS % (AUTO) 0.8 %; HCT - HEMATOCRIT 47.7 % (37.0-47.0); HGB - HEMOGLOBIN 15.3 g/dL (12.0-16.0); LYMPHOCYTES % (AUTO) 18.2 %; MEAN CORPUSCULAR HEMOGLOBIN 30.9 pg (27.0-31.0); MEAN CORPUSCULAR HGB CONC 32.1 g/dL (32.0-36.0); MEAN CORPUSCULAR VOLUME 96.4 fL (81.0-99.0); MEAN PLATELET VOLUME 11.1 fL (7.9-10.8); MONOCYTES # (AUTO) 0.9 10^3/uL (0.0-1.0); MONOCYTES % (AUTO) 8.2 %; NEUTROPHILS # (AUTO) 7.8 10^3/uL (1.5-6.6); NEUTROPHILS % (AUTO) 71.6 %; PLT - PLATELET COUNT 223 10^3/uL (130-450); RED BLOOD COUNT 4.95 10^6/uL (4.20-5.40); RED CELL DISTRIBUTION WIDTH 14.7 % (12.0-15.0); WHITE BLOOD COUNT 10.8 x10^3/uL (4.8-10.8)
[2020-10-10 15:36] LABS: ALBUMIN 4.1 g/dL (3.2-5.5); ALBUMIN/GLOBULIN RATIO 1.4 (1.0-2.2); BILIRUBIN,TOTAL 1.1 mg/dL (0.2-1.0); CALCIUM 8.9 mg/dL (8.5-10.3); CREATININE 0.9 mg/dL (0.4-1.0); POTASSIUM 3.6 mmol/L (3.5-5.0); TOTAL PROTEIN 7.1 g/dL (6.7-8.2)
[2020-10-10] MEDS ORDERED: IOPAMIDOL-300 100 ML VIAL IVP ONE (16:07)
--- NOTE | 2020-10-10 16:35 | CT Report ---
PROCEDURE: ANGIO CHEST W/WO INDICATIONS: exertional dyspnea CONTRAST: IV CONTRAST: Isovue 300 ml: 80 PO CONTRAST: *NO PO CONTRAST TECHNIQUE: After the administration of intravenous contrast, images were acquired from the pulmonary apices to t he posterior costophrenic angles. 3-dimensional maximum intensity projection (MIP) coronal and sagit lani reformats were then acquired through the thorax. For radiation dose reduction, the following was used: automated exposure control, adjustment of mA and/or kV according to patient size. COMPARISON: 06/06/2016 FINDINGS: Image quality: Excellent. Pulmonary arteries: Pulmonary arteries are normal in size, and demonstrate no intraluminal filling d efects to suggest central pulmonary embolism. Lungs and pleura: Patchy bilateral groundglass pulmonary infiltrates Mediastinum: Heart size is enlarged, without pericardial effusion. No mediastinal or hilar adenopat hy. There is dense aortic atherosclerotic vascular calcification as well as calcification of the aort ic valvular ring. Left-sided dual-chamber pacemaker and midline sternotomy wires present. Esophagus i s normal in caliber, without hiatal hernia. Bones and chest wall: No suspicious bony lesions. Ribs and thoracic spine appear intact throughout. No axillary or supraclavicular adenopathy. The thyroid is normal in size and there are no incident al findings. Abdomen: Visualized upper abdominal solid organs appear normal in the early arterial phase of enhanc ement. Cholecystectomy noted. IMPRESSION: No evidence of pulmonary embolism, aortic dissection or aneurysm. Cardiomegaly, pacemaker and atherosclerotic aortic vascular calcification present. Bilateral pulmonary ground glass densities may reflect of pulmonary edema, pneumonitis or viral pneum onia Reviewed by: Bk Noel MD on 10/10/2020 3:33 PM AKDT Approved by: Bk Noel MD on 10/10/2020 3:33 PM AKDT Station ID: [id number]
[2020-10-10] MEDS ORDERED: cefTRIAXone 1 GM in SODIUM CHLORIDE 0.9% MINIBAG 100 ML IV STA (17:00)
[2020-10-10] MEDS ORDERED: DEXAMETHASONE 10 MG/ML VIAL IVP STA (17:00)
[2020-10-10] MEDS ORDERED: cefTRIAXone 1 GM VIAL ONE (17:11)
[2020-10-10 18:05] VITALS: BP 173/69
== END 2020-10-10 18:05 | disposition home or self-care (01) ==
LOC: ED 14:17
DX: J43.9 Emphysema, unspecified (principal); I48.0 Paroxysmal atrial fibrillation; E11.9 Type 2 diabetes mellitus without complications; Z95.0 Presence of cardiac pacemaker; J18.9 Pneumonia, unspecified organism; Z20.822 Contact with and (suspected) exposure to COVID-19
CPT/HCPCS: 36415; 71275; 80053; 83690; 83880; 84484; 85025; 93005; 94640; 94664; 96365; 96375; 99284; Q9967; U0004

== ENCOUNTER 2020-10-27 11:02 | Outpatient (CLI) | payer MEDICARE, OTHER | END 2020-10-27 11:03 | disposition critical access hospital (66) | LOC: EMS 11:02 | DX: R06.02 Shortness of breath (principal) | CPT/HCPCS: A0425; A0427 ==

== ENCOUNTER 2020-10-27 11:27 | Emergency (ER) | payer MEDICARE, OTHER ==
--- NOTE | 2020-10-27 11:44 | ED Physician Documentation ---
History of Present Illness - Stated complaint Stated Complaint: SOA - Chief complaint Chief Complaint: Resp - Additonal information Additional information: 85-year-old female who has a history of COPD oxygen dependent at 3 L nasal cannula baseline as well as CHF, CAD and cardiac pacer and a recent diagnosis of pneumonia presents to the emergency department for evaluation of worsening dyspnea on exertion. She was hospitalized at [facility] late August and early September for pneumonia. She was placed on a course of antibiotics as well as a new prescription for Lasix. She presented to this hospital on [address] angio did not show any pneumonia however there were groundglass opacities in lower lung bases. She was treated with Augmentin and azithromycin and a short course of steroids. She reports that she felt better for short period of time however for the last 3 days she has had significant dyspnea with minimal exertion. She is denying any chest pain or fevers. Home health nurse noted that she was hypoxic on baseline 3 L nasal cannula and thus EMS was summoned. She was placed on 6 L nasal cannula with resultant rise in her oxygen to 100%. She reports that she had some diarrhea while on the antibiotics but none for at least 1 week. She does have baseline lower extremity edema that is been unchanged since discharge from [facility] on 01 October. Encyclopedia Research Worker is Dr. Snell through [facility]. She [place] is currently in the emergency department. pt is fully vaccinated for covid 19 Review of Systems Constitutional: denies: Fever, Chills Eyes: reports: Reviewed and negative Ears: reports: Reviewed and negative Nose: reports: Reviewed and negative Throat: reports: Reviewed and negative Cardiac: reports: Pedal edema. denies: Chest pain / pressure, Palpitations, Calf pain Respiratory: reports: Dyspnea, Cough. denies: Hemoptysis, Wheezing GI: reports: Diarrhea. denies: Abdominal Pain : denies: Dysuria, Frequency, Hesitancy Skin: reports: Reviewed and negative Musculoskeletal: reports: Reviewed and negative Neurologic: reports: Generalized weakness. denies: Syncope PD PAST MEDICAL HISTORY - Past Medical History Cardiovascular: Congestive heart failure, Hypertension, High cholesterol, Coronary artery disease, Peripheral Vascular Disease, Angina, [place], Atrial fibrillation (paroxysmal), Arrhythmia (tachy/roopa syndrome) Respiratory: COPD, Emphysema, Shortness of breath, Sleep apnea Neuro: TIA Endocrine/Autoimmune: Type 2 diabetes, HyPOthyroidism GI: GERD, GI bleed, Ulcers, Hiatal hernia, Colon polyps, Cholelithiasis : None HEENT: Chronic sinusitis, Chronic hearing loss Psych: None Musculoskeletal: Osteoarthritis, Chronic back pain Derm: Herpes zoster - Past Surgical History Past Surgical History: Yes General: Cholecystectomy, Appendectomy, Hiatal hernia repair, Colonoscopy, EGD Ortho: Rotator cuff repair, Carpal Tunnel surgery, Spine surgery, 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, 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 Cardiovascular: Coronary stent, Pacemaker, Cardiac catheterization, Angioplasty HEENT: Cataracts, Other Derm: Skin cancer surgery - Present Medications Home Medications: Ambulatory Orders Medication Instructions Recorded Confirmed Fluticasone [Flonase] 1 puffs NS BID 01/09/13 10/27/20 Olopatadine HCl [Patanol] 1 drop OP BID 01/09/13 10/27/20 traMADol [Ultram] 50 mg PO BID PRN 05/30/13 10/27/20 Dronedarone HCl [Multaq] 400 mg PO BID 01/07/15 10/27/20 Latanoprost [Xalatan] 1 drop OP DAILY 01/07/15 10/27/20 Fexofenadine HCl 180 mg PO DAILY 06/26/20 10/27/20 Losartan [Cozaar] 100 mg PO DAILY PM 06/26/20 10/27/20 Metoprolol Succinate [Toprol Xl] 25 mg PO DAILY 06/26/20 10/27/20 Nystatin 2 applic TOP BID 06/26/20 10/27/20 Albuterol 2.5 mg INH Q4H PRN 07/07/20 10/27/20 Atorvastatin [Lipitor] 10 mg PO DAILY PM 07/07/20 10/27/20 Isosorbide Mononitrate [Isosorbide 60 mg PO DAILY 07/07/20 10/27/20 Mononitrate ER] Levothyroxine Sodium [Synthroid] 250 mcg PO DAILY 07/07/20 10/27/20 amLODIPine [Norvasc] 10 mg PO DAILY 07/07/20 10/27/20 Acetaminophen [Tylenol] 650 mg PO Q6H PRN 10/10/20 10/27/20 Fluticasone/Salmeterol [Advair 1 each IH DAILY 10/10/20 10/27/20 250-50 Diskus] Furosemide [Lasix] 20 mg PO DAILY 10/10/20 10/27/20 Hydrocortisone 1% Cream 1 applic TOP BID 10/10/20 10/27/20 [Hydrocortisone] prednisoLONE 1% OPHTH DROPS [Pred 1 drops OPTH BID 10/10/20 10/27/20 Forte 1% Ophth Drops] Furosemide [Lasix] 20 mg PO DAILY #30 tablet 10/27/20 - Allergies Allergies/Adverse Reactions: Allergies Allergy/AdvReac Type Severity Reaction Status Date / Time hydrochlorothiazide Allergy Severe Anaphylaxis Verified 10/27/20 11:33 sulfamethoxazole Allergy Severe Anaphylaxis Verified 10/27/20 11:33 [From ] trimethoprim [From ] Allergy Severe Anaphylaxis Verified 10/27/20 11:33 amlodipine AdvReac Severe Swelling Verified 10/27/20 11:33 to ankles and feeet atenolol AdvReac Severe Bradycardia Verified 10/27/20 11:33 Penicillins AdvReac Severe Anxiety/Swelling Verified 10/27/20 11:33 and redness at injection site - Social History Does the pt smoke?: No Smoking Status: Never smoker Does the pt drink ETOH?: No Does the pt have substance abuse?: No - Immunizations Immunizations are current?: Yes - POLST Patient has POLST: No PD ED PE EXPANDED - General General: Alert, No acute distress, Well developed/nourished - Cardiac Cardiac: Murmur Present, Radial strong equal, Pedal strong equal, Cap refill < 2 sec, Other (paced cardiac rythm) - Respiratory Respiratory: Clear to ausultation rene, Decreased breath sounds (at absed. mildly labored with talking) - Abdomen Abdomen: Normal Bowel sounds. No: Tender to palpation - Derm Derm: Normal color, Warm and dry - Extremities Extremities: Normal, Deformity, Pedal edema bilateral (2+ pitting edema bila terally) - Neuro Neuro: Alert and Oriented X 3, CNII-XII intact, Normal speech - GCS Eye Opening: Spontaneous Motor: Obeys Commands Verbal: Oriented Total: 15 Results - Vitals Vitals: Vital Signs - 24 hr 10/27/20 10/27/20 10/27/20 11:33 11:46 13:45 Temperature 36.3 C L Heart Rate 71 70 70 Respiratory 20 24 21 Rate Blood Pressure 156/68 H 144/65 H 142/69 H O2 Saturation 100 100 99 Oxygen O2 Source Room air Oxygen Flow Rate 4 - Labs Labs: Laboratory Tests 10/27/20 10/27/20 10/27/20 11:41 11:41 11:41 WBC 12.3 H RBC 4.47 Hgb 13.9 Hct 43.5 MCV 97.3 MCH 31.1 H MCHC 32.0 RDW 15.8 H Plt Count 224 MPV 10.4 Neut # (Auto) 9.7 H Lymph # (Auto) 1.4 L Stanton # (Auto) 1.0 Eos # (Auto) 0.2 Baso # (Auto) 0.1 Absolute Nucleated RBC 0.00 Nucleated RBC % 0.0 Sodium 140 Potassium 4.0 Chloride 99 L Carbon Dioxide 29 Anion Gap 12.0 BUN 11 Creatinine 0.8 Estimated GFR (MDRD) 68 L Glucose 169 H Calcium 9.3 Total Bilirubin 1.4 H AST 27 ALT 35 Alkaline Phosphatase 69 Troponin I High Sens 5.9 B-Natriuretic Peptide Total Protein 7.0 Albumin 3.6 Globulin 3.4 Albumin/Globulin Ratio 1.1 Lipase 21 L 10/27/20 11:41 WBC RBC Hgb Hct MCV MCH MCHC RDW Plt Count MPV Neut # (Auto) Lymph # (Auto) Stanton # (Auto) Eos # (Auto) Baso # (Auto) Absolute Nucleated RBC Nucleated RBC % Sodium Potassium Chloride Carbon Dioxide Anion Gap BUN Creatinine Estimated GFR (MDRD) Glucose Calcium Total Bilirubin AST ALT Alkaline Phosphatase Troponin I High Sens B-Natriuretic Peptide 134 H Total Protein Albumin Globulin Albumin/Globulin Ratio Lipase - Rads (name of study) CXR Radiology: Final report received (Mild pulmonary vascular congestion and mild pulmonary edema is seen. No definite focal infiltrate. Trace left pleural effusion is likely present. No gross pneumothorax.) PD MEDICAL DECISION MAKING - ED course Complexity details: reviewed results, considered differential, d/w patient ED course: 85-year-old female comes to the emergency department for evaluation of exertional dyspnea that has been getting worse over the last 3 days. This follows a hospitalization about 4 weeks ago at [facility] for pneumonia as well as recent ER visit for dyspnea. Most recently she has completed a course of azithromycin and Augmentin as well as a steroid burst for treatment of suspected COPD. Patient does not have cough or wheeze however with exertion she is having desaturations at home into the mid 80s. She is typically on 3 L nasal cannula. When EMS presented she was 90% and was increased to 6 L nasal cannula. Chest x-ray is suggestive of some congestive heart failure and pulmonary edema though her BNP is not markedly elevated. Troponin is negative. She has preserved renal function. I do not have any recent echocardiogram. Her most recent one on record here was 5 years ago that showed a preserved ejection fraction. However patient was given 40 of Lasix here in the emergency department with a good brisk diuresis. Following this she was ambulated in the hallway using a walker. She was maintained on 3 L nasal cannula and did not have a desaturation. She remained 94% or better. She was somewhat labored when she returned to bed but she did report to this provider that she felt improved. CXR without focal opacity and no wheeze or cough elicited. Doubt COPD exacerbation. This time she does appear stable for discharge. She was offered the opportunity for an admission for further diuresis and evaluation but she declined to that. She would like to return to her who she is helping care for who has dementia. I discussed with the patient that she is likely entering the end stages of COPD and heart failure. We discussed that it is likely she will require more help at home with her and that they may not be able to live independently anymore. She was in agreement of this. I will discharge the patient with a prescription for Lasix. She is advised to take 40 a day for the next week and then follow-up with her primary care provider. Labs should be repeated. If at any point she has worsening dyspnea despite diuresis, develops chest pain or has near syncopal episode she is to return immediately to the ER for a second evaluation. Departure - Departure Disposition: 01 Home, Self Care Clinical Impression: Exertional shortness of breath CHF (congestive heart failure) Qualifiers: Heart failure type: unspecified Heart failure chronicity: chronic Qualified Code(s): I50.9 - Heart failure, unspecified Condition: Serious Record reviewed to determine appropriate education?: Yes Instructions: Heart Failure Dc Follow-Up: Ting Fabian MD [Primary Care Provider] - Prescriptions: Furosemide [Lasix] 20 mg PO DAILY #30 tablet Comments: Enedelia you are seen in the ER today for shortness of air with any exertion. Your chest x-ray suggest that you have too much fluid in your lungs. This is consistent with your history of heart failure. I am represcribing your Lasix that you typically take 20 mg each day. However for the next week I would like you to take 40 mg each day. The goal is that with reduced fluid on board your breathing may be easier. You were offered the opportunity for observation here today but you are feeling better and I feel it is okay if you want to go home. However if your symptoms are worsening at home, you develop chest pain, have oxygen saturations less than 88% or feel that your symptoms are worsening in any way then please return to the ER for a second evaluation. It is important you reschedule with your primary care doctor. I would like your labs rechecked in 1 week. It is likely that you and your are going to be requiring increased help at home. You may need to live with your children or have one of them come to assist you if that is possible.
[2020-10-27 11:47] LABS: BASOPHILS # (AUTO) 0.1 10^3/uL (0.0-0.1); BASOPHILS % (AUTO) 0.4 %; EOSINOPHILS # (AUTO) 0.2 10^3/uL (0.0-0.7); EOSINOPHILS % (AUTO) 1.7 %; HCT - HEMATOCRIT 43.5 % (37.0-47.0); HGB - HEMOGLOBIN 13.9 g/dL (12.0-16.0); LYMPHOCYTES # (AUTO) 1.4 10^3/uL (1.5-3.5); MEAN CORPUSCULAR HEMOGLOBIN 31.1 pg (27.0-31.0); MEAN CORPUSCULAR VOLUME 97.3 fL (81.0-99.0); MEAN PLATELET VOLUME 10.4 fL (7.9-10.8); MONOCYTES % (AUTO) 7.9 %; NEUTROPHILS # (AUTO) 9.7 10^3/uL (1.5-6.6); NEUTROPHILS % (AUTO) 78.4 %; PLT - PLATELET COUNT 224 10^3/uL (130-450); RED BLOOD COUNT 4.47 10^6/uL (4.20-5.40); RED CELL DISTRIBUTION WIDTH 15.8 % (12.0-15.0); WHITE BLOOD COUNT 12.3 x10^3/uL (4.8-10.8)
[2020-10-27 12:02] LABS: ALBUMIN 3.6 g/dL (3.2-5.5); ALBUMIN/GLOBULIN RATIO 1.1 (1.0-2.2); BILIRUBIN,TOTAL 1.4 mg/dL (0.2-1.0); CALCIUM 9.3 mg/dL (8.5-10.3); CREATININE 0.8 mg/dL (0.4-1.0)
--- NOTE | 2020-10-27 12:12 | XRAY Report ---
PROCEDURE: Chest 1 View X-Ray INDICATIONS: Chest Pain TECHNIQUE: One view of the chest was acquired. COMPARISON: CT angiogram of chest dated 10/10/2020 FINDINGS: Surgical changes and devices: Left chest wall pacemaker leads are seen in the region of right atrium and right ventricle. Median sternotomy wires and surgical clips are seen.. Lungs and pleura: Mild pulmonary vascular congestion and mild pulmonary edema is seen. No definite fo lobo infiltrate. Trace left pleural effusion is likely present. No gross pneumothorax. Mediastinum: Mediastinal contours appear normal. Heart size is enlarged. Bones and chest wall: No suspicious bony lesions. Overlying soft tissues appear unremarkable. IMPRESSION: CHF changes. No definite focal infiltrate. Trace left pleural effusion. No gross pneumothorax. Reviewed by: Chon Pierson MD on 10/27/2020 12:11 PM PDT Approved by: Chon Pierson MD on 10/27/2020 12:11 PM PDT Station ID: [id number]
[2020-10-27] MEDS ORDERED: FUROSEMIDE 40 MG/4 ML VIAL IVP STA (12:14)
[2020-10-27 13:46] VITALS: BP 142/69
== END 2020-10-27 15:15 | disposition home or self-care (01) ==
LOC: EDUNIT# → ED 11:27
DX: I11.0 Hypertensive heart disease with heart failure (principal); I50.9 Heart failure, unspecified; I50.1 Left ventricular failure, unspecified; E11.9 Type 2 diabetes mellitus without complications; I48.0 Paroxysmal atrial fibrillation; Z79.01 Long term (current) use of anticoagulants
CPT/HCPCS: 36415; 80053; 83690; 83880; 84484; 85025; 96374; 99284

== ENCOUNTER 2020-11-20 14:33 | Outpatient (CLI) | payer MEDICARE, OTHER ==
[2020-11-20 17:45] LABS: BASOPHILS # (AUTO) 0.1 10^3/uL (0.0-0.1); BASOPHILS % (AUTO) 0.6 %; EOSINOPHILS # (AUTO) 0.1 10^3/uL (0.0-0.7); EOSINOPHILS % (AUTO) 0.6 %; HGB - HEMOGLOBIN 14.3 g/dL (12.0-16.0); LYMPHOCYTES # (AUTO) 1.6 10^3/uL (1.5-3.5); LYMPHOCYTES % (AUTO) 12.7 %; MEAN CORPUSCULAR HGB CONC 31.1 g/dL (32.0-36.0); MEAN CORPUSCULAR VOLUME 96.6 fL (81.0-99.0); MEAN PLATELET VOLUME 11.7 fL (7.9-10.8); MONOCYTES # (AUTO) 0.9 10^3/uL (0.0-1.0); MONOCYTES % (AUTO) 7.5 %; NEUTROPHILS # (AUTO) 9.5 10^3/uL (1.5-6.6); NEUTROPHILS % (AUTO) 77.9 %; PLT - PLATELET COUNT 316 10^3/uL (130-450); RED BLOOD COUNT 4.76 10^6/uL (4.20-5.40); RED CELL DISTRIBUTION WIDTH 15.5 % (12.0-15.0); WHITE BLOOD COUNT 12.2 x10^3/uL (4.8-10.8)
[2020-11-20 18:01] LABS: CALCIUM 8.9 mg/dL (8.5-10.3); CREATININE 0.9 mg/dL (0.4-1.0); POTASSIUM 3.4 mmol/L (3.5-5.0)
== END 2020-11-20 14:34 | disposition home or self-care (01) ==
LOC: LAB.N 14:33
PROVIDERS: ATTEND Internal Medicine Cardiovascular Disease
DX: I50.32 Chronic diastolic (congestive) heart failure (principal); I70.213 Atherosclerosis of native arteries of extremities with intermittent claudication, bilateral legs
CPT/HCPCS: 36415; 80048; 85025

== ENCOUNTER 2020-11-28 10:44 | Emergency (ER) | payer MEDICARE, OTHER ==
--- NOTE | 2020-11-28 11:13 | ED Physician Documentation ---
History of Present Illness - Stated complaint Stated Complaint: RECTAL BLEEDING S/P SURGERY - Chief complaint Chief Complaint: General - History obtained from History obtained from: Patient - Additonal information Additional information: 85-year-old woman who has a history of coronary disease status post remote bypass. She also has a history of A. fib in remission. She had a femoral artery endarterectomy it sounds like on the , and was discharged on Plavix. Since last night she initially developed dark and tarry stools and now more bright red blood per rectum. She denies abdominal pain or rectal pain. She does have a history of ulcer disease, that was when she was therapeutically anticoagulated and supratherapeutic. Now no anticoagulants other than Plavix. Review of Systems Ten Systems: 10 systems reviewed and negative Constitutional: denies: Fever, Chills Eyes: reports: Reviewed and negative Ears: reports: Reviewed and negative PD PAST MEDICAL HISTORY - Past Medical History Cardiovascular: Congestive heart failure, Hypertension, High cholesterol, Coronary artery disease, Peripheral Vascular Disease, Angina, [place], Atrial fibrillation (paroxysmal), Arrhythmia (tachy/roopa syndrome) Respiratory: COPD, Emphysema, Shortness of breath, Sleep apnea Neuro: TIA Endocrine/Autoimmune: Type 2 diabetes, HyPOthyroidism GI: GERD, GI bleed, Ulcers, Hiatal hernia, Colon polyps, Cholelithiasis : None HEENT: Chronic sinusitis, Chronic hearing loss Psych: None Musculoskeletal: Osteoarthritis, Chronic back pain Derm: Herpes zoster - Past Surgical History Past Surgical History: Yes General: Cholecystectomy, Appendectomy, Hiatal hernia repair, Colonoscopy, EGD Ortho: Rotator cuff repair, Carpal Tunnel surgery, Spine surgery, 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, 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 Cardiovascular: Coronary stent, Pacemaker, Cardiac catheterization, Angioplasty HEENT: Cataracts, Other Derm: Skin cancer surgery - Present Medications Home Medications: Ambulatory Orders Medication Instructions Recorded Confirmed Fluticasone [Flonase] 1 puffs NS BID 01/09/13 11/28/20 Olopatadine HCl [Patanol] 1 drop OP BID 01/09/13 11/28/20 traMADol [Ultram] 50 mg PO BID PRN 05/30/13 11/28/20 Dronedarone HCl [Multaq] 400 mg PO BID 01/07/15 11/28/20 Latanoprost [Xalatan] 1 drop OP DAILY 01/07/15 11/28/20 Fexofenadine HCl 180 mg PO DAILY 06/26/20 11/28/20 Losartan [Cozaar] 100 mg PO DAILY PM 06/26/20 11/28/20 Metoprolol Succinate [Toprol Xl] 25 mg PO DAILY 06/26/20 11/28/20 Albuterol 2.5 mg INH Q4H PRN 07/07/20 11/28/20 Atorvastatin [Lipitor] 10 mg PO DAILY PM 07/07/20 11/28/20 Isosorbide Mononitrate [Isosorbide 60 mg PO DAILY 07/07/20 11/28/20 Mononitrate ER] Levothyroxine Sodium [Synthroid] 250 mcg PO DAILY 07/07/20 11/28/20 amLODIPine [Norvasc] 10 mg PO DAILY 07/07/20 11/28/20 Acetaminophen [Tylenol] 650 mg PO Q6H PRN 10/10/20 11/28/20 Fluticasone/Salmeterol [Advair 1 each IH DAILY 10/10/20 11/28/20 250-50 Diskus] prednisoLONE 1% OPHTH DROPS [Pred 1 drops OPTH BID 10/10/20 11/28/20 Forte 1% Ophth Drops] Furosemide [Lasix] 20 mg PO DAILY #30 tablet 10/27/20 11/28/20 Clopidogrel [Plavix] 75 mg PO DAILY 11/28/20 11/28/20 - Allergies Allergies/Adverse Reactions: Allergies Allergy/AdvReac Type Severity Reaction Status Date / Time hydrochlorothiazide Allergy Severe Anaphylaxis Verified 11/28/20 11:04 sulfamethoxazole Allergy Severe Anaphylaxis Verified 11/28/20 11:04 [From ] trimethoprim [From ] Allergy Severe Anaphylaxis Verified 11/28/20 11:04 amlodipine AdvReac Severe Swelling Verified 11/28/20 11:04 to ankles and feeet atenolol AdvReac Severe Bradycardia Verified 11/28/20 11:04 Penicillins AdvReac Severe Anxiety/Swelling Verified 11/28/20 11:04 and redness at injection site - Social History Does the pt smoke?: No Smoking Status: Never smoker Does the pt drink ETOH?: No Does the pt have substance abuse?: No - Immunizations Immunizations are current?: Yes - POLST Patient has POLST: No PD ED PE NORMAL - Vitals Vital signs reviewed: Yes - General General: Alert and oriented X 3, No acute distress, Other (On 4 L nasal cannula which is her baseline.) - HEENT HEENT: PERRL, EOMI - Neck Neck: Supple, no meningeal sign, No bony TTP - Cardiac Cardiac: RRR, No murmur - Respiratory Respiratory: No respiratory distress - Abdomen Abdomen: Soft, Non tender - Female Female : Other (Left groin surgical incision with wound VAC in place, no drainage or cellulitis. She is ecchymotic in the area.) - Rectal Rectal: Other (Dark stool without gross blood) - Derm Derm: Normal color, Warm and dry - Neuro Neuro: Alert and oriented X 3, Normal speech Results - Vitals Vitals: Vital Signs - 24 hr 11/28/20 11/28/20 11/28/20 10:52 13:03 15:00 Temperature 36.5 C Heart Rate 71 89 72 Respiratory 20 16 18 Rate Blood Pressure 131/56 H 134/106 H 134/67 H O2 Saturation 100 92 94 11/28/20 11/28/20 11/28/20 17:00 19:00 21:06 Temperature Heart Rate 70 70 70 Respiratory 20 18 19 Rate Blood Pressure 139/66 H 130/52 L 133/57 H O2 Saturation 92 93 90 L 11/28/20 22:31 Temperature 36.8 C Heart Rate Respiratory Rate Blood Pressure O2 Saturation Oxygen O2 Source Nasal cannula - Labs Labs: Microbiology 11/28/20 11:30 Occult Blood - Final Stool Laboratory Tests 11/28/20 11/28/20 11/28/20 11:35 11:35 11:35 WBC 15.9 H RBC 3.50 L Hgb 10.5 L Hct 34.3 L MCV 98.0 MCH 30.0 MCHC 30.6 L RDW 15.9 H Plt Count 255 MPV 11.2 H Neut # (Auto) 12.9 H Lymph # (Auto) 1.4 L [place] # (Auto) 1.2 H Eos # (Auto) 0.2 Baso # (Auto) 0.1 Absolute Nucleated RBC 0.00 Nucleated RBC % 0.0 PT 12.6 INR 1.1 Sodium Potassium Chloride Carbon Dioxide Anion Gap BUN Creatinine Estimated GFR (MDRD) Glucose Calcium Nasal Adenovirus (PCR) Nasal B. parapertussis DNA (PCR) Nasal Coronavir 229E PCR Nasal Coronavir HKU1 PCR Nasal Coronavir NL63 PCR Nasal Coronavir OC43 PCR Nasal Enterovir/Rhinovir PCR Nasal Influenza B PCR Nasal Influenza A PCR Nasal Parainfluen 1 PCR Nasal Parainfluen 2 PCR Nasal Parainfluen 3 PCR Nasal Parainfluen 4 PCR Nasal RSV (PCR) Nasal B.pertussis DNA PCR Nasal C.pneumoniae (PCR) Yaakov Human Metapneumo PCR Nasal M.pneumoniae (PCR) Nasal SARS-CoV-2 (PCR) Blood Type A POSITIVE Antibody Screen NEGATIVE 11/28/20 11/28/20 11/28/20 11:35 13:15 17:31 WBC RBC Hgb 10.4 L Hct 34.0 L MCV MCH MCHC RDW Plt Count MPV Neut # (Auto) Lymph # (Auto) [place] # (Auto) Eos # (Auto) Baso # (Auto) Absolute Nucleated RBC Nucleated RBC % PT INR Sodium 140 Potassium 3.6 Chloride 98 L Carbon Dioxide 31 Anion Gap 11.0 BUN 28 H Creatinine 0.8 Estimated GFR (MDRD) 68 L Glucose 169 H Calcium 8.8 Nasal Adenovirus (PCR) NOT DETECTED Nasal B. parapertussis DNA (PCR) NOT DETECTED Nasal Coronavir 229E PCR NOT DETECTED Nasal Coronavir HKU1 PCR NOT DETECTED Nasal Coronavir NL63 PCR NOT DETECTED Nasal Coronavir OC43 PCR NOT DETECTED Nasal Enterovir/Rhinovir PCR NOT DETECTED Nasal Influenza B PCR NOT DETECTED Nasal Influenza A PCR NOT DETECTED Nasal Parainfluen 1 PCR NOT DETECTED Nasal Parainfluen 2 PCR NOT DETECTED Nasal Parainfluen 3 PCR NOT DETECTED Nasal Parainfluen 4 PCR NOT DETECTED Nasal RSV (PCR) NOT DETECTED Nasal B.pertussis DNA PCR NOT DETECTED Nasal C.pneumoniae (PCR) NOT DETECTED Yaakov Human Metapneumo PCR NOT DETECTED Nasal M.pneumoniae (PCR) NOT DETECTED Nasal SARS-CoV-2 (PCR) NOT DETECTED Blood Type Antibody Screen PD MEDICAL DECISION MAKING - ED course ED course: Spoke with Dr Andrew, environmental emergencies planner for Dr Martin at 1212. Question as to the importance of continuing plavix. She reviewed op report. There was a stent in place. Her discharge Hgb was 13.8, now 10.3. Recommends since she has had a 3 gram drop in Hgb since discharge. Spoke with Dr Travis, environmental emergencies planner surgeon at 1218. Feels patient comorbidities preclude admission here (4L oxygen dependence, CAD). Call was placed to the hospitalist at [facility] for transfer. There is a significant delay to return call. Departure - Departure Disposition: 02 Transfer Acute Care Hosp Clinical Impression: GI bleeding, Severe chronic obstructive pulmonary disease, Platelet inhibition due to Plavix Condition: Serious Discharge Date/Time: 11/28/20 22:45
[2020-11-28 11:44] LABS: BASOPHILS # (AUTO) 0.1 10^3/uL (0.0-0.1); BASOPHILS % (AUTO) 0.4 %; EOSINOPHILS # (AUTO) 0.2 10^3/uL (0.0-0.7); EOSINOPHILS % (AUTO) 1.2 %; HCT - HEMATOCRIT 34.3 % (37.0-47.0); HGB - HEMOGLOBIN 10.5 g/dL (12.0-16.0); LYMPHOCYTES # (AUTO) 1.4 10^3/uL (1.5-3.5); LYMPHOCYTES % (AUTO) 8.9 %; MEAN CORPUSCULAR HGB CONC 30.6 g/dL (32.0-36.0); MEAN PLATELET VOLUME 11.2 fL (7.9-10.8); MONOCYTES # (AUTO) 1.2 10^3/uL (0.0-1.0); MONOCYTES % (AUTO) 7.5 %; NEUTROPHILS # (AUTO) 12.9 10^3/uL (1.5-6.6); NEUTROPHILS % (AUTO) 81.1 %; PLT - PLATELET COUNT 255 10^3/uL (130-450); RED CELL DISTRIBUTION WIDTH 15.9 % (12.0-15.0); WHITE BLOOD COUNT 15.9 x10^3/uL (4.8-10.8)
[2020-11-28 11:58] LABS: CALCIUM 8.8 mg/dL (8.5-10.3); CREATININE 0.8 mg/dL (0.4-1.0); POTASSIUM 3.6 mmol/L (3.5-5.0)
[2020-11-28 12:12] LABS: INR 1.1 (0.8-1.2); PT - PROTHROMBIN TIME 12.6 secs (9.9-12.6)
[2020-11-28] MEDS ORDERED: PANTOPRAZOLE 40 MG VIAL IVP STA (13:00)
[2020-11-28 15:23] LABS: B. PARAPERTUSSIS- RESP PCR PAN NOT DETECTED; B. PERTUSSIS- RESP PCR PANEL NOT DETECTED; C. PNEUMONIAE- RESP PCR PANEL NOT DETECTED; CORONAVIRUS 229E-RESP PCR NOT DETECTED; CORONAVIRUS HKU1-RESP PCR NOT DETECTED; CORONAVIRUS NL63-RESP PCR NOT DETECTED; CORONAVIRUS OC43-RESP PCR NOT DETECTED; HUMAN METAPNEUMOVIRUS NOT DETECTED; INFLUENZA A- RESP PCR PANEL NOT DETECTED; INFLUENZA B - RESP PCR PANEL NOT DETECTED; M. PNEUMONIAE- RESP PCR PANEL NOT DETECTED; PARAINFLUENZA VIRUS 1 NOT DETECTED; PARAINFLUENZA VIRUS 2 NOT DETECTED; PARAINFLUENZA VIRUS 3 NOT DETECTED; PARAINFLUENZA VIRUS 4 NOT DETECTED; RHINOVIRUS/ENTEROVIRUS NOT DETECTED; RSV- RESP PCR PANEL NOT DETECTED; SARS-CoV-2 -RESP PCR PANEL NOT DETECTED
[2020-11-28 17:36] LABS: HGB - HEMOGLOBIN 10.4 g/dL (12.0-16.0)
[2020-11-28 21:06] VITALS: BP 133/57
--- NOTE | 2020-11-28 21:23 | ED Physician Documentation ---
ED Addendum - Addendum Addendum: 11/28/20 21:20 Received sign out from Dr. Lee, patient is pending disposition. I saw and examined patient; she is resting comfortably in NAD, says she has not had BM for several hours (nor feels urge to). Has no c/o at this time. RLE is warm, dry, with <2 sec capillary refill and palpable DP pulse. wound vac in place right groin with surrounding echymosis appropriate/expected for recent procedure. D/W KATINA Juarez at [facility] and she accepts transfer to their facility in [place].
[2020-11-28] MEDS ORDERED: SODIUM CHLORIDE 0.9% 1,000 ML IV STA (21:57)
== END 2020-11-28 22:45 | disposition short-term general hospital (02) ==
LOC: ED 10:44
DX: K92.1 Melena (principal); Z98.890 Other specified postprocedural states; Z20.822 Contact with and (suspected) exposure to COVID-19; I25.10 Atherosclerotic heart disease of native coronary artery without angina pectoris; Z95.1 Presence of aortocoronary bypass graft; Z79.02 Long term (current) use of antithrombotics/antiplatelets; J43.9 Emphysema, unspecified; Z99.81 Dependence on supplemental oxygen; I11.0 Hypertensive heart disease with heart failure; I50.9 Heart failure, unspecified; E11.9 Type 2 diabetes mellitus without complications; Z87.11 Personal history of peptic ulcer disease
CPT/HCPCS: 0202U; 36415; 80048; 82272; 85014; 85018; 85025; 85610; 86850; 86900; 86901; 96374; 99285

== ENCOUNTER 2020-11-28 22:41 | Outpatient (CLI) | payer MEDICARE, OTHER | END 2020-11-28 22:42 | disposition short-term general hospital (02) | LOC: EMS 22:41 | PROVIDERS: ATTEND Emergency Medicine | DX: K92.2 Gastrointestinal hemorrhage, unspecified (principal) | CPT/HCPCS: A0425; A0428 ==

== ENCOUNTER 2020-12-13 21:50 | Outpatient (CLI) | payer MEDICARE, OTHER | END 2020-12-13 21:51 | disposition critical access hospital (66) | LOC: EMS 21:50 | DX: R06.02 Shortness of breath (principal); R05.9 Cough, unspecified | CPT/HCPCS: A0425; A0429 ==

== ENCOUNTER 2020-12-13 22:11 | Inpatient (IN) | payer MEDICARE, OTHER ==
--- NOTE | 2020-12-13 22:11 | ED Physician Documentation ---
PD HPI DYSPNEA - Stated complaint Stated Complaint: SOA - History obtained from History obtained from: Patient, EMS - History of Present Illness Timing - onset: Enter time (22:00), Today Timing - onset during: Rest Timing - details: Gradual onset Pain level max: 0 Pain level now: 0 Improved by: Other (no ameliorating factors) Worsened by: Other (no exacerbating factors) Associated symptoms: Cough, Bilateral edema. No: Fever, Hemoptysis, Wheezing, Chest pain / discomfort, Palpitations, Diaphoresis Similar symptoms before: Diagnosis (COPD, CHF) Recently seen: Emergency Dept (see narrative, below (11/28/20 [facility] ED visit, transferred)) - Additional information Additional information: BIBA for dyspnea. Patient says she uses 4 liters/min [place] oxygen (although at jayda es it sounds like she is describing recently having increased from 3 liters, but her story changes frequently as to her baseline oxygen requirement). She used her albuterol 3 times during the day today. At approximately 10 PM tonight, she had gradually worsening dyspnea noticeably worse than her baseline, as well as increasingly frequent [employer] cough. denies fevers. She is COVID vaccinated. Blood sugar by finger stick (by EMS) is 146. She denies chest pain/pressure/tightness. Patient had right femoral artery endarterectomy 11/24, then presented to this ED 11/28 for lower GIB for which she was transferred to [facility] (where the procedure had been performed). She denies any recent black/bloody stools. Review of Systems Constitutional: denies: Fever, Chills, Sweats Eyes: reports: Reviewed and negative Ears: reports: Reviewed and negative Nose: reports: Reviewed and negative Throat: reports: Reviewed and negative Cardiac: reports: Pedal edema. denies: Chest pain / pressure, Palpitations Respiratory: reports: Dyspnea, Cough. denies: Hemoptysis, Wheezing GI: reports: Constipation. denies: Abdominal Pain, Nausea, Vomiting, Bloody / black stool : denies: Dysuria, Frequency Skin: denies: Rash Musculoskeletal: reports: Extremity swelling (BLE (chronic)) Neurologic: reports: Generalized weakness. denies: Focal weakness, Numbness, Headache PD PAST MEDICAL HISTORY - Past Medical History Past Medical History: Yes Cardiovascular: Congestive heart failure, Hypertension, High cholesterol, Coronary artery disease, Peripheral Vascular Disease, Atrial fibrillation Respiratory: COPD Endocrine/Autoimmune: HyPOthyroidism GI: GERD, GI bleed - Past Surgical History Past Surgical History: Yes Cardiovascular: CABG, Pacemaker, Other (femoral arterial endarterectomy) - Present Medications Home Medications: Ambulatory Orders Medication Instructions Recorded Confirmed Fluticasone [Flonase] 1 puffs NS BID 01/09/13 12/13/20 Olopatadine HCl [Patanol] 1 drop OP BID 01/09/13 12/13/20 traMADol [Ultram] 50 mg PO BID PRN 05/30/13 12/13/20 Dronedarone HCl [Multaq] 400 mg PO BID 01/07/15 12/13/20 Latanoprost [Xalatan] 1 drop OP DAILY 01/07/15 12/13/20 Fexofenadine HCl 180 mg PO DAILY 06/26/20 12/13/20 Losartan [Cozaar] 100 mg PO DAILY PM 06/26/20 12/13/20 Metoprolol Succinate [Toprol Xl] 25 mg PO DAILY 06/26/20 12/13/20 Albuterol 2.5 mg INH Q4H PRN 07/07/20 12/13/20 Atorvastatin [Lipitor] 10 mg PO DAILY PM 07/07/20 12/13/20 Isosorbide Mononitrate [Isosorbide 60 mg PO DAILY 07/07/20 12/13/20 Mononitrate ER] Levothyroxine Sodium [Synthroid] 250 mcg PO DAILY 07/07/20 12/13/20 amLODIPine [Norvasc] 10 mg PO DAILY 07/07/20 12/13/20 Acetaminophen [Tylenol] 650 mg PO Q6H PRN 10/10/20 12/13/20 Fluticasone/Salmeterol [Advair 1 each IH DAILY 10/10/20 12/13/20 250-50 Diskus] prednisoLONE 1% OPHTH DROPS [Pred 1 drops OPTH BID 10/10/20 12/13/20 Forte 1% Ophth Drops] Furosemide [Lasix] 20 mg PO DAILY #30 tablet 10/27/20 12/13/20 Clopidogrel [Plavix] 75 mg PO DAILY 11/28/20 12/13/20 - Allergies Allergies/Adverse Reactions: Allergies Allergy/AdvReac Type Severity Reaction Status Date / Time hydrochlorothiazide Allergy Severe Anaphylaxis Verified 12/13/20 22:23 sulfamethoxazole Allergy Severe Anaphylaxis Verified 12/13/20 22:23 [From ] trimethoprim [From ] Allergy Severe Anaphylaxis Verified 12/13/20 22:23 amlodipine AdvReac Severe Swelling Verified 12/13/20 22:23 to ankles and feeet atenolol AdvReac Severe Bradycardia Verified 12/13/20 22:23 Penicillins AdvReac Severe Anxiety/Swelling Verified 12/13/20 22:23 and redness at injection site - Living Situation Living Arrangement: reports: At home - Social History Does the pt smoke?: No PD ED PE NORMAL - Vitals Vital signs reviewed: Yes - General General: Alert and oriented X 3, Well developed/nourished, Other (tachypneic. Able to speak in full, albeit short, sentences) - Neck Neck: Supple, no meningeal sign - Cardiac Cardiac: RRR, No murmur - Abdomen Abdomen: Soft, Non tender - Derm Derm: Normal color, Warm and dry - Neuro Neuro: Alert and oriented X 3 PD ED PE EXPANDED - Respiratory Respiratory: Rales, Other (tachypneic). No: Wheezing, Rhonchi - Extremities Extremities: Pedal edema bilateral Results - Vitals Vitals: Vital Signs - 24 hr 12/13/20 12/13/20 12/13/20 22:15 22:31 22:44 Temperature 36.3 C L Heart Rate 74 72 70 Respiratory 24 30 H 23 Rate Blood Pressure 134/63 H 138/62 H O2 Saturation 86 L 94 12/13/20 12/13/20 12/13/20 22:59 23:16 23:36 Temperature 36.1 C L Heart Rate 70 70 74 Respiratory 24 27 H 22 Rate Blood Pressure 138/71 H 133/60 H 144/62 H O2 Saturation 96 95 93 12/14/20 12/14/20 12/14/20 00:15 00:18 00:23 Temperature 36.1 C L Heart Rate 72 76 72 Respiratory 20 23 21 Rate Blood Pressure 147/81 H 145/62 H O2 Saturation 94 94 12/14/20 12/14/20 12/14/20 00:53 01:14 01:29 Temperature 37.1 C Heart Rate 72 73 73 Respiratory 16 21 26 H Rate Blood Pressure 135/64 H 139/75 H 141/63 H O2 Saturation 97 91 L 91 L 12/14/20 12/14/20 12/14/20 01:35 01:36 01:57 Temperature 36.2 C L Heart Rate 72 79 72 Respiratory 28 H 24 15 Rate Blood Pressure 152/66 H 152/66 H O2 Saturation 94 94 Oxygen O2 Source Oxymask Oxygen Flow Rate 4 - EKG (time done) #1 Other comments: Other comments (artifact in all leads precludes interpretation (this is due to her significant tachypnea during EKG attempt)) #2 Rate: Rate (enter#) (70) Rhythm: Paced Other comments: Other comments - Labs Labs: Laboratory Tests 12/13/20 12/13/20 12/13/20 22:33 22:33 22:33 WBC 14.8 H RBC 3.52 L Hgb 9.5 L Hct 31.4 L MCV 89.2 MCH 27.0 MCHC 30.3 L RDW 17.2 H Plt Count 417 MPV 10.6 Neut # (Auto) 11.1 H Lymph # (Auto) 1.8 [place] # (Auto) 1.5 H Eos # (Auto) 0.3 Baso # (Auto) 0.1 Absolute Nucleated RBC 0.00 Nucleated RBC % 0.0 Sodium 131 L Potassium 3.4 L Chloride 89 L Carbon Dioxide 30 Anion Gap 12.0 BUN 17 Creatinine 0.7 Estimated GFR (MDRD) 79 L Glucose 155 H Lactic Acid Calcium 8.2 L Troponin I High Sens 6.9 B-Natriuretic Peptide Nasal Adenovirus (PCR) Nasal B. parapertussis DNA (PCR) Nasal Coronavir 229E PCR Nasal Coronavir HKU1 PCR Nasal Coronavir NL63 PCR Nasal Coronavir OC43 PCR Nasal Enterovir/Rhinovir PCR Nasal Influenza B PCR Nasal Influenza A PCR Nasal Parainfluen 1 PCR Nasal Parainfluen 2 PCR Nasal Parainfluen 3 PCR Nasal Parainfluen 4 PCR Nasal RSV (PCR) Nasal B.pertussis DNA PCR Nasal C.pneumoniae (PCR) Yaakov Human Metapneumo PCR Nasal M.pneumoniae (PCR) Nasal SARS-CoV-2 (PCR) 12/13/20 12/13/20 12/14/20 22:33 22:33 00:15 WBC RBC Hgb Hct MCV MCH MCHC RDW Plt Count MPV Neut # (Auto) Lymph # (Auto) [place] # (Auto) Eos # (Auto) Baso # (Auto) Absolute Nucleated RBC Nucleated RBC % Sodium Potassium Chloride Carbon Dioxide Anion Gap BUN Creatinine Estimated GFR (MDRD) Glucose Lactic Acid 0.9 Calcium Troponin I High Sens B-Natriuretic Peptide 147 H Nasal Adenovirus (PCR) NOT DETECTED Nasal B. parapertussis DNA (PCR) NOT DETECTED Nasal Coronavir 229E PCR NOT DETECTED Nasal Coronavir HKU1 PCR NOT DETECTED Nasal Coronavir NL63 PCR NOT DETECTED Nasal Coronavir OC43 PCR NOT DETECTED Nasal Enterovir/Rhinovir PCR NOT DETECTED Nasal Influenza B PCR NOT DETECTED Nasal Influenza A PCR NOT DETECTED Nasal Parainfluen 1 PCR NOT DETECTED Nasal Parainfluen 2 PCR NOT DETECTED Nasal Parainfluen 3 PCR NOT DETECTED Nasal Parainfluen 4 PCR NOT DETECTED Nasal RSV (PCR) NOT DETECTED Nasal B.pertussis DNA PCR NOT DETECTED Nasal C.pneumoniae (PCR) NOT DETECTED Yaakov Human Metapneumo PCR NOT DETECTED Nasal M.pneumoniae (PCR) NOT DETECTED Nasal SARS-CoV-2 (PCR) NOT DETECTED 12/14/20 00:15 WBC 15.6 H RBC 3.51 L Hgb 9.6 L Hct 32.4 L MCV 92.3 MCH 27.4 MCHC 29.6 L RDW 17.2 H Plt Count 437 MPV 11.3 H Neut # (Auto) 13.9 H Lymph # (Auto) 0.7 L [place] # (Auto) 0.6 Eos # (Auto) 0.2 Baso # (Auto) 0.1 Absolute Nucleated RBC 0.00 Nucleated RBC % 0.0 Sodium Potassium Chloride Carbon Dioxide Anion Gap BUN Creatinine Estimated GFR (MDRD) Glucose Lactic Acid Calcium Troponin I High Sens B-Natriuretic Peptide Nasal Adenovirus (PCR) Nasal B. parapertussis DNA (PCR) Nasal Coronavir 229E PCR Nasal Coronavir HKU1 PCR Nasal Coronavir NL63 PCR Nasal Coronavir OC43 PCR Nasal Enterovir/Rhinovir PCR Nasal Influenza B PCR Nasal Influenza A PCR Nasal Parainfluen 1 PCR Nasal Parainfluen 2 PCR Nasal Parainfluen 3 PCR Nasal Parainfluen 4 PCR Nasal RSV (PCR) Nasal B.pertussis DNA PCR Nasal C.pneumoniae (PCR) Yaakov Human Metapneumo PCR Nasal M.pneumoniae (PCR) Nasal SARS-CoV-2 (PCR) - Rads (name of study) chest xray Radiology: Prelim report reviewed, See rad report PD MEDICAL DECISION MAKING - ED course Complexity details: reviewed old records, reviewed results, re-evaluated patient, considered differential, d/w patient ED course: patient brought in by EMS. early in ED stay it is noted that she could not maintain pulse ox above 86% until supplemental oxygen was increased to a minimum of 6 liters/min via oxymask. With 6-8 liters via oxymask, she was maintaining pulse ox of 93-95% and improved respiratory rate. She is given duoneb and then two albuterol neb treatments, as well as 40mg IV lasix and 10mg IV decadron. She subsequently was trialled on her reported baseline requirement of 4 liters/min NC oxygen and within 1-2 minutes, her pulse ox steadily declined to 86-88% with increasing respiratory rate, and then a more rapid decline to mid-70s pulse ox with obvious increasing work of breathing and respiratory rate (I was in the room as this trial on 4 liters was undertaken). Oxymask thus reapplied with 6 liters oxygen/minute and this resulted in steady improvement back to lower 90s pulse ox and decreased tachypnea and work of breathing. she will need to be admitted for her dyspnea and oxygen requirement that are significantly worse than her baseline. COPD exacerbation and CHF are likely contributing factors. At this time, there is no evidence of infectious etiology. Departure - Departure Disposition: ED Place in Observation Clinical Impression: Hypoxia Dyspnea Qualifiers: Dyspnea type: shortness of breath Qualified Code(s): R06.02 - Shortness of breath Condition: Stable Discharge Date/Time: 12/14/20 02:55
[2020-12-13] MEDS ORDERED: IPRATROPIUM/ALBUTEROL 3 ML NEB INH STA (22:24)
[2020-12-13] MEDS ORDERED: DEXAMETHASONE 10 MG/ML VIAL IVP STA (22:24)
[2020-12-13 22:43] LABS: BASOPHILS # (AUTO) 0.1 10^3/uL (0.0-0.1); BASOPHILS % (AUTO) 0.4 %; EOSINOPHILS # (AUTO) 0.3 10^3/uL (0.0-0.7); HCT - HEMATOCRIT 31.4 % (37.0-47.0); HGB - HEMOGLOBIN 9.5 g/dL (12.0-16.0); LYMPHOCYTES # (AUTO) 1.8 10^3/uL (1.5-3.5); LYMPHOCYTES % (AUTO) 12.2 %; MEAN CORPUSCULAR HGB CONC 30.3 g/dL (32.0-36.0); MEAN CORPUSCULAR VOLUME 89.2 fL (81.0-99.0); MEAN PLATELET VOLUME 10.6 fL (7.9-10.8); MONOCYTES # (AUTO) 1.5 10^3/uL (0.0-1.0); NEUTROPHILS # (AUTO) 11.1 10^3/uL (1.5-6.6); NEUTROPHILS % (AUTO) 74.7 %; PLT - PLATELET COUNT 417 10^3/uL (130-450); RED BLOOD COUNT 3.52 10^6/uL (4.20-5.40); RED CELL DISTRIBUTION WIDTH 17.2 % (12.0-15.0); WHITE BLOOD COUNT 14.8 x10^3/uL (4.8-10.8)
[2020-12-13 22:53] LABS: CREATININE 0.7 mg/dL (0.4-1.0)
[2020-12-13 23:06] LABS: CALCIUM 8.2 mg/dL (8.5-10.3); POTASSIUM 3.4 mmol/L (3.5-5.0)
--- NOTE | 2020-12-13 23:21 | XRAY Report ---
PROCEDURE: Chest 2 View X-Ray INDICATIONS: dyspnea TECHNIQUE: 2 view(s) of the chest. COMPARISON: Chest X ray 10/27/2020 FINDINGS: Surgical changes and devices: Pacemaker and sternal wires are noted. Lungs and pleura: Poor inspiratory effort is present with overlying soft tissue shadows. There is an overall appearance of increased vascularity. Mild increased opacity is noted within the right upper a nd lower as well as right lower lobes Mediastinum: Mediastinal contours are normal. Heart size is enlarged. Bones and chest wall: No suspicious bony abnormalities. Soft tissues appear unremarkable. IMPRESSION: Diffuse appearance of increased vascularity suggestive of edema. Mild increased prominen ce within the upper lobes and right base as above. This could represent focal edema. However, underly ing areas of pneumonia and/or atelectasis cannot be excluded. Reviewed by: Zara Broderick MD on 12/13/2020 11:19 PM PDT Approved by: Zara Broderick MD on 12/13/2020 11:19 PM PDT Station ID: [id number]
[2020-12-13 23:37] LABS: B. PARAPERTUSSIS- RESP PCR PAN NOT DETECTED; B. PERTUSSIS- RESP PCR PANEL NOT DETECTED; C. PNEUMONIAE- RESP PCR PANEL NOT DETECTED; CORONAVIRUS 229E-RESP PCR NOT DETECTED; CORONAVIRUS HKU1-RESP PCR NOT DETECTED; CORONAVIRUS NL63-RESP PCR NOT DETECTED; CORONAVIRUS OC43-RESP PCR NOT DETECTED; HUMAN METAPNEUMOVIRUS NOT DETECTED; INFLUENZA A- RESP PCR PANEL NOT DETECTED; INFLUENZA B - RESP PCR PANEL NOT DETECTED; M. PNEUMONIAE- RESP PCR PANEL NOT DETECTED; PARAINFLUENZA VIRUS 1 NOT DETECTED; PARAINFLUENZA VIRUS 2 NOT DETECTED; PARAINFLUENZA VIRUS 3 NOT DETECTED; PARAINFLUENZA VIRUS 4 NOT DETECTED; RHINOVIRUS/ENTEROVIRUS NOT DETECTED; RSV- RESP PCR PANEL NOT DETECTED; SARS-CoV-2 -RESP PCR PANEL NOT DETECTED
[2020-12-14] MEDS ORDERED: ALBUTEROL NEB 2.5 MG/3 ML INH STA ×2 (00:10→01:18)
[2020-12-14] MEDS ORDERED: FUROSEMIDE 40 MG/4 ML VIAL IVP STA (01:05)
[2020-12-14] MEDS ORDERED: ONDANSETRON ODT 4 MG TABLET TL PRN (01:59)
[2020-12-14] MEDS ORDERED: ACETAMINOPHEN 325 MG TABLET PO PRN (01:59)
[2020-12-14] MEDS ORDERED: ALBUTEROL NEB 2.5 MG/3 ML INH PRN (02:03)
--- NOTE | 2020-12-14 02:06 | HISTORY & PHYSICAL EXAMINATION ---
Chief Complaint - Chief Complaint Chief Complaint: Shortness of breath History of Present Illness - Admitted From Admitted From:: Home - History Obtained From Records Reviewed: Yes History obtained from: Patient, ER Physician, EMR - History of Present Illness HPI Comment/Other: This is a 85-year-old female with a past medical history significant for COPD on 4 L of oxygen, coronary artery disease, peripheral vascular disease, paroxysmal atrial fibrillation status post pacemaker, hypertension, iron deficiency anemia, hypothyroidism who presents today complaining of dyspnea. She states she has been short of breath since September 27. At that time, she was reportedly hospitalized at [facility] for pneumonia. She states she did well after that till earlier this month when she had anemia secondary to a GI bleed. She was transferred to [facility] in [place] where she states they believe the bleeding may have been due to her recent vascular surgery. She states she underwent an endoscopy which showed an ulcer that was not bleeding but there was another source of her GI bleed but she cannot recall what it was. She states she never required a blood transfusion. She felt okay on discharge but she returns today complaining of worsening shortness of breath again. She states she has a nonproductive cough and complains of orthopnea. She reports no fevers or chills. Denies chest pain. She has no abdominal pain, nausea, vomiting. Reports no dysuria, urgency, frequency. She states she is still taking Plavix and aspirin. She has not noticed any bleeding. She denies bloody stools or dark tarry stools and hematuria. She reports she is normally on 4 L of oxygen at baseline for her COPD and this was recently increased after her most recent discharge from [facility] in [place]. She was previously on 2 to 3 L of oxygen. She reports no wheezing and is compliant with her inhalers. She denies any weight gain or weight loss but does report a poor appetite over the last few weeks. In the emergency department, she is noted to be hypoxic requiring 5 to 6 L of oxygen to maintain saturation greater than 88%. Labs revealed a white count of 14.8 and a hemoglobin of 9.5. Her sodium was 131 and potassium 3.4. Troponin and lactic acid are within normal limits. Her BNP was 147. Chest x-ray was concerning for pulmonary vascular congestion. Initial EKG has significant artifact. Repeat EKG revealed a paced rhythm. She was given multiple breathing treatments and a dose of IV Lasix without improvement in her hypoxia. Given this, medicine was consulted for admission. We discussed goals of care and I confirmed with her that she is a DNR which is evident on her POLST. History - Past Medical History Cardiovascular: reports: Congestive heart failure, Hypertension, High cholesterol, Coronary artery disease, Peripheral Vascular Disease, Angina, [place], Atrial fibrillation, Arrhythmia Respiratory: reports: COPD, Emphysema, Sleep apnea Neuro: reports: TIA Endocrine/Autoimmune: reports: Type 2 diabetes, HyPOthyroidism GI: reports: GERD, GI bleed, Ulcers, Hiatal hernia, Colon polyps, Cholelithiasis : reports: None HEENT: reports: Chronic sinusitis, Chronic hearing loss Psych: reports: None Musculoskeletal: reports: Osteoarthritis, Chronic back pain Derm: reports: Herpes zoster MRSA Hx?: No - Past Surgical History General: reports: Cholecystectomy, Appendectomy, Hiatal hernia repair, Colonoscopy, EGD Ortho: reports: Rotator cuff repair, Carpal Tunnel surgery, Spine surgery, Other /[employer]: reports: Hysterectomy, Oophrectomy Cardiovascular: reports: Coronary stent, Pacemaker, Cardiac catheterization, Vascular surgery, Angioplasty HEENT: reports: Cataracts, Other Derm: reports: Skin cancer surgery - Family & Social History Family History: Mother: , Father: , Brother: Family History Comment/Other: She had a brother who just from colon cancer. Two other brothers had diabetes. Living arrangement: At home Living Situation: With spouse/s.o. Social History Notes: She lives at home with her who has dementia. She is a nonsmoker and does not drink alcohol. - Substance History Use: Uses substance without health or social issues: NONE - POLST Patient has POLST: Yes Meds/Allgy - Home Medications Home Medications: Ambulatory Orders Medication Instructions Recorded Confirmed Fluticasone [Flonase] 1 puffs NS BID 01/09/13 12/13/20 Olopatadine HCl [Patanol] 1 drop OP BID 01/09/13 12/13/20 traMADol [Ultram] 50 mg PO BID PRN 05/30/13 12/13/20 Dronedarone HCl [Multaq] 400 mg PO BID 01/07/15 12/13/20 Latanoprost [Xalatan] 1 drop OP DAILY 01/07/15 12/13/20 Fexofenadine HCl 180 mg PO DAILY 06/26/20 12/13/20 Losartan [Cozaar] 100 mg PO DAILY PM 06/26/20 12/13/20 Metoprolol Succinate [Toprol Xl] 25 mg PO DAILY 06/26/20 12/13/20 Albuterol 2.5 mg INH Q4H PRN 07/07/20 12/13/20 Atorvastatin [Lipitor] 10 mg PO DAILY PM 07/07/20 12/13/20 Isosorbide Mononitrate [Isosorbide 60 mg PO DAILY 07/07/20 12/13/20 Mononitrate ER] Levothyroxine Sodium [Synthroid] 250 mcg PO DAILY 07/07/20 12/13/20 amLODIPine [Norvasc] 10 mg PO DAILY 07/07/20 12/13/20 Acetaminophen [Tylenol] 650 mg PO Q6H PRN 10/10/20 12/13/20 Fluticasone/Salmeterol [Advair 1 each IH DAILY 10/10/20 12/13/20 250-50 Diskus] prednisoLONE 1% OPHTH DROPS [Pred 1 drops OPTH BID 10/10/20 12/13/20 Forte 1% Ophth Drops] Furosemide [Lasix] 20 mg PO DAILY #30 tablet 10/27/20 12/13/20 Clopidogrel [Plavix] 75 mg PO DAILY 11/28/20 12/13/20 - Allergies Allergies/Adverse Reactions: Allergies Allergy/AdvReac Type Severity Reaction Status Date / Time hydrochlorothiazide Allergy Severe Anaphylaxis Verified 12/13/20 22:23 sulfamethoxazole Allergy Severe Anaphylaxis Verified 12/13/20 22:23 [From ] trimethoprim [From ] Allergy Severe Anaphylaxis Verified 12/13/20 22:23 amlodipine AdvReac Severe Swelling Verified 12/13/20 22:23 to ankles and feeet atenolol AdvReac Severe Bradycardia Verified 12/13/20 22:23 Penicillins AdvReac Severe Anxiety/Swelling Verified 12/13/20 22:23 and redness at injection site Review of Systems - Constitutional Constitutional: reports: Poor appetite. denies: Fever, Chills - Eyes Eyes: denies: Blurred vision, Vision loss - Ears, Nose & Throat Ears, Nose & Throat: denies: Nasal discharge, Nasal congestion - Cardiovascular Cariovascular: reports: Lightheadedness, Exertional dyspnea, Decr. exercise tolerance, Orthopnea. denies: Chest pain, Edema - Respiratory Respiratory: reports: Cough, Orthopnea, SOB at rest, SOB with exertion. denies: Sputum production, Wheezing - Gastrointestinal Gastrointestinal: denies: Abdominal pain, Diarrhea, Bloody stools, Nausea, Vomiting - Genitourinary Genitourinary: denies: Dysuria, Frequency, Urgency, Hematuria - Integumentary Integumentary: denies: Rash - Neurological Neurological: reports: General weakness, Dizziness. denies: Focal weakness - Hematologic/Lymphatic Hematologic/Lymphatic: reports: Anemia, Bleeding tendencies - All Other Systems All Other Systems: reports: Reviewed and negative Exam - Vital Signs Reviewed Vital Signs: Yes Vital Signs: Vital Signs x48h Temp Pulse Resp BP Pulse Ox 12/14/20 01:57 36.2 C L 72 15 152/66 H 94 12/14/20 01:36 79 24 12/14/20 01:35 72 28 H 152/66 H 94 12/14/20 01:29 73 26 H 141/63 H 91 L 12/14/20 01:14 73 21 139/75 H 91 L 12/14/20 00:53 37.1 C 72 16 135/64 H 97 12/14/20 00:23 36.1 C L 72 21 145/62 H 94 12/14/20 00:18 76 23 12/14/20 00:15 72 20 147/81 H 94 12/13/20 23:36 74 22 144/62 H 93 12/13/20 23:16 70 27 H 133/60 H 95 12/13/20 22:59 36.1 C L 70 24 138/71 H 96 12/13/20 22:44 70 23 138/62 H 94 12/13/20 22:31 72 30 H 12/13/20 22:15 36.3 C L 74 24 134/63 H 86 L - Physical Exam General Appearance: positive: Alert, Mild distress Eyes Bilateral: positive: Normal inspection, Conjunctivae nml ENT: positive: ENT inspection nml, Other (Oxymask in place.) Neck: positive: Nml inspection Respiratory: positive: No respiratory distress, Other (Tachypnic. Bilateral crackles.). negative: Wheezes, Rales Cardiovascular: positive: Regular rate & rhythm. negative: Irregularly irregular, Tachycardia, Systolic murmur Abdomen: positive: Nml bowel sounds, No distention, Tenderness (Mild epigastric tenderness.). negative: Guarding, Rebound Skin: positive: Warm, Dry Extremities: positive: Pedal edema (+1 pitting edema in bilateral lower extremities.) Neurologic/Psychiatric: negative: Disoriented to person, Disoriented to place Conclusion/Plan - Problem List (1) Acute on chronic respiratory failure with hypoxia Conclusion/Plan: This appears be secondary to acute on chronic CHF. She is now requiring 6 L of oxygen compared to her baseline of 3 to 4 L. Her x-ray also suggest pulmonary vascular congestion. Her BNP is only mildly elevated but she is obese and this is likely falsely decreased. She also has pitting edema. We will start her on 40 mg of IV Lasix daily. Low-sodium diet. Check daily weights and strict I's and O's. Will order an echocardiogram for today. (2) Acute on chronic diastolic CHF (congestive heart failure) Conclusion/Plan: I suspect this is the likely cause of her acute on chronic respiratory failure with hypoxia. The last echocardiogram available to me revealed a preserved ejection fraction. I have requested records from her most recent hospitalization at [facility]. Plan as mentioned above with diuresis and obtaining an echocardiogram. (3) COPD (chronic obstructive pulmonary disease) Conclusion/Plan: She is on 4 L of oxygen at baseline. She is now requiring 6 L of oxygen likely due to an exacerbation of her heart failure. She does not appear to be in a COPD exacerbation. We will start her on DuoNeb 4 times daily with albuterol as needed. Goal oxygen saturation greater than 88%. (4) PVD (peripheral vascular disease) Conclusion/Plan: She has known peripheral vascular disease with recent intervention. She cannot clarify what procedure was obtained. I have requested records from [facility] in [place]. We will continue her on Plavix and Lipitor. We will need to confirm if she is also on aspirin. (5) CAD (coronary artery disease) Conclusion/Plan: She is a history of coronary artery disease with CABG in the past. Currently there is low suspicion for ACS. Her troponin is within normal limits. Her EKG reveals a paced rhythm. We will continue her home medications including metoprolol, Imdur, Plavix, Lipitor. (6) Iron deficiency anemia Conclusion/Plan: Her hemoglobin today is 9.5 which is decreased compared to prior lab values that are available to me. She reports is being hospitalized for a GI bleed but did not require a blood transfusion. She does have a history of iron deficiency anemia. I have requested records from [facility] in [place]. We will check iron studies and monitor for evidence of bleeding. (7) Hypothyroidism Conclusion/Plan: Stable. Continue home Synthroid. - Lab Results Lab results reviewed: Yes Fish Bones: 12/14/20 00:15 12/13/20 22:33 - Diagnostic Imaging Results Diagnostic Imaging Results: positive: Final report reviewed - EKG Results EKG Interpreted Independently: Yes EKG Findings: EKG reveals a paced rhythm. Core Measures - Anticipated LOS I expect patient to be DC'd or transferred within 96 hours.: Yes - Issues Hospital Issues and Management Plan: 85-year-old female with history of COPD, diastolic heart failure who was just discharged from [facility] after he admitted for GI bleed presents with acute on chronic respiratory failure with hypoxia likely due to heart failure exacerbation. We will admit for diuresis and obtain echocardiogram. - DVT/VTE - Prophylaxis VTE/DVT Device ordered at admit?: Yes VTE/DVT Prophylaxis med ordered at admit?: Yes
[2020-12-14] MEDS: ATORVASTATIN 10 MG TABLET PO SCH ×2 (04:06→20:37)
[2020-12-14] MEDS ORDERED: POTASSIUM CHLORIDE 20 MEQ TABLET PO ONE (07:03)
[2020-12-14 07:09] LABS: BASOPHILS # (AUTO) 0.1 10^3/uL (0.0-0.1); BASOPHILS % (AUTO) 0.4 %; EOSINOPHILS # (AUTO) 0.2 10^3/uL (0.0-0.7); EOSINOPHILS % (AUTO) 1.3 %; HCT - HEMATOCRIT 32.4 % (37.0-47.0); HGB - HEMOGLOBIN 9.6 g/dL (12.0-16.0); LYMPHOCYTES # (AUTO) 0.7 10^3/uL (1.5-3.5); LYMPHOCYTES % (AUTO) 4.4 %; MEAN CORPUSCULAR HEMOGLOBIN 27.4 pg (27.0-31.0); MEAN CORPUSCULAR HGB CONC 29.6 g/dL (32.0-36.0); MEAN CORPUSCULAR VOLUME 92.3 fL (81.0-99.0); MEAN PLATELET VOLUME 11.3 fL (7.9-10.8); MONOCYTES # (AUTO) 0.6 10^3/uL (0.0-1.0); MONOCYTES % (AUTO) 4.1 %; NEUTROPHILS # (AUTO) 13.9 10^3/uL (1.5-6.6); NEUTROPHILS % (AUTO) 89.2 %; PLT - PLATELET COUNT 437 10^3/uL (130-450); RED BLOOD COUNT 3.51 10^6/uL (4.20-5.40); RED CELL DISTRIBUTION WIDTH 17.2 % (12.0-15.0); WHITE BLOOD COUNT 15.6 x10^3/uL (4.8-10.8)
[2020-12-14 07:55] LABS: CALCIUM 8.5 mg/dL (8.5-10.3); CREATININE 0.7 mg/dL (0.4-1.0); MAGNESIUM 1.6 mg/dL (1.7-2.8); POTASSIUM 3.7 mmol/L (3.5-5.0)
[2020-12-14] MEDS: LEVOTHYROXINE 125 MCG TABLET PO SCH (07:57)
[2020-12-14] MEDS: IPRATROPIUM/ALBUTEROL 3 ML NEB INH SCH ×4 (07:57→19:45)
[2020-12-14] MEDS: ISOSORBIDE MONONITRATE ER 30 MG TABLET PO SCH (08:50)
[2020-12-14] MEDS: ENOXAPARIN 40 MG/0.4 ML SYRINGE SUBQ SCH (08:51)
[2020-12-14] MEDS: METOPROLOL SUCCINATE 25 MG TABLET PO SCH (08:51)
[2020-12-14] MEDS: amLODIPine 5 MG TABLET PO SCH (08:51)
[2020-12-14] MEDS: CLOPIDOGREL 75 MG TABLET PO SCH (08:53)
[2020-12-14] MEDS: FUROSEMIDE 40 MG/4 ML VIAL IVP SCH (08:53)
[2020-12-14] MEDS: SODIUM CHLORIDE FLUSH 0.9% 10 ML SYRINGE IVP SCH ×2 (08:54→17:36)
[2020-12-14] MEDS: PATIENT OWN MED PO SCH ×2 (08:59→20:44)
--- NOTE | 2020-12-14 11:40 | PHARMACY PROGRESS NOTE ---
- Best Possible Medication History Admit Date and Time: 12/14/20 0159 Processed by: Nursing Medication History completed: Yes Patient Interview: Completed Secondary Source(s): Pharmacy records, Insurance records As the person ultimately responsible for medication therapy, providers are able to order a medication from an existing home medication list in [facility] via the "Reconcile Routine" prior to Confirmation of that medication by sales support engineer. Such practice is discouraged except when the physician, in their clinical judgment, deems that a medical need exists for a medication without regard to previous use.
[2020-12-14] MEDS: FERROUS GLUCONATE 324 MG TABLET PO SCH (14:58)
[2020-12-14] MEDS: MAGNESIUM OXIDE 400 MG TABLET PO SCH (17:36)
[2020-12-14] MEDS: INSULIN ASPART 300 UNIT/3 ML PEN SUBQ SCH ×3 (17:37→20:44)
[2020-12-14] MEDS: INSULIN GLARGINE 300 UNIT/3 ML PEN SUBQ SCH (20:38)
[2020-12-14] MEDS ORDERED: LOSARTAN 50 MG TABLET PO SCH (21:00)
[2020-12-14] MEDS: traMADol 50 MG TABLET PO PRN (21:09)
[2020-12-15] MEDS: SODIUM CHLORIDE FLUSH 0.9% 10 ML SYRINGE IVP SCH ×3 (00:18→17:57)
[2020-12-15 05:42] LABS: BASOPHILS % (AUTO) 0.1 %; EOSINOPHILS % (AUTO) 0.1 %; HCT - HEMATOCRIT 32.3 % (37.0-47.0); HGB - HEMOGLOBIN 9.8 g/dL (12.0-16.0); LYMPHOCYTES # (AUTO) 1.4 10^3/uL (1.5-3.5); LYMPHOCYTES % (AUTO) 9.7 %; MEAN CORPUSCULAR HEMOGLOBIN 26.6 pg (27.0-31.0); MEAN CORPUSCULAR HGB CONC 30.3 g/dL (32.0-36.0); MEAN CORPUSCULAR VOLUME 87.5 fL (81.0-99.0); MEAN PLATELET VOLUME 10.1 fL (7.9-10.8); NEUTROPHILS # (AUTO) 11.7 10^3/uL (1.5-6.6); NEUTROPHILS % (AUTO) 82.5 %; PLT - PLATELET COUNT 424 10^3/uL (130-450); RED BLOOD COUNT 3.69 10^6/uL (4.20-5.40); RED CELL DISTRIBUTION WIDTH 17.1 % (12.0-15.0); WHITE BLOOD COUNT 14.2 x10^3/uL (4.8-10.8)
[2020-12-15 05:52] LABS: CALCIUM 8.7 mg/dL (8.5-10.3); CREATININE 0.6 mg/dL (0.4-1.0); MAGNESIUM 1.7 mg/dL (1.7-2.8)
[2020-12-15] MEDS: LEVOTHYROXINE 125 MCG TABLET PO SCH (06:42)
[2020-12-15 08:02] LABS: ESTIMATED AVERAGE GLUCOSE 151 mg/dL (70-100); HEMOGLOBIN A1c% 6.9 % (4.27-6.07)
[2020-12-15] MEDS: FERROUS GLUCONATE 324 MG TABLET PO SCH (08:14)
[2020-12-15] MEDS: INSULIN ASPART 300 UNIT/3 ML PEN SUBQ SCH ×5 (08:24→20:37)
--- NOTE | 2020-12-15 08:33 | PROVIDER PROGRESS NOTE ---
Assessment/Plan - Problem List (1) Acute on chronic respiratory failure with hypoxia Assessment/Plan: This is likely exacerbated by acute on chronic CHF. Patient is receiving Lasix 40 mg IV daily. Will continue. Oxygen requirement is currently 4 L which is her home baseline with oxygen saturation greater than 92%. We will continue to monitor I's and O's and daily weights. 2D echocardiogram done on 12/14/2020 showed preserved ejection fraction at 70 to 75%. RVSP at rest is 70 mmHg. There is moderate to severe left atrial volume index. Mild ventricular enlargement with normal right ventricular systolic function. On metoprolol succinate 25 mg p.o. daily. We will continue (2) Acute on chronic diastolic CHF (congestive heart failure) Assessment/Plan: We will continue to monitor I's and O's and daily weights. 2D echocardiogram done on 12/14/2020 showed preserved ejection fraction at 70 to 75%. RVSP at rest is 70 mmHg. There is moderate to severe left atrial volume index. Mild ventricular enlargement with normal right ventricular systolic function. On metoprolol succinate 25 mg p.o. daily. We will continue (3) COPD (chronic obstructive pulmonary disease) Assessment/Plan: Patient is back to her baseline oxygen requirement of 4 L with oxygen saturation greater than 92%. She has mild conversational dyspnea. However this is thought to be more likely due to CHF exacerbation. (4) PVD (peripheral vascular disease) Assessment/Plan: On Lipitor and Plavix. (5) CAD (coronary artery disease) Assessment/Plan: Patient has history of coronary disease with CABG in the past. We will continue patient's metoprolol, Imdur, Plavix and Lipitor. (6) Iron deficiency anemia Assessment/Plan: Hemoglobin stable at 9.8. Iron level is low at 19, TIBC 361, percent saturation 5, transferrin 258 and terrence ritin 82.9 Currently on ferrous gluconate 325 mg p.o. daily. (7) Hypothyroidism Assessment/Plan: On Synthroid 250 mcg p.o. daily AC - Current Meds Current Meds: Current Medications Generic Name Dose Route Start Last Admin Trade Name Freq PRN Reason Stop Dose Admin Albuterol/Ipratropium 3 ml 12/14/20 07:00 12/14/20 19:45 Ipratropium/Albuterol 3 Ml Neb INH 3 ml RTQID ELBA Administration Amlodipine Besylate 10 mg 10/18/21 09:00 12/14/20 08:51 Amlodipine 5 Mg Tablet PO 10 mg DAILY ELBA Administration Atorvastatin Calcium 10 mg 12/14/20 03:00 12/14/20 20:37 Atorvastatin 10 Mg Tablet PO 10 mg QPM ELBA Administration Clopidogrel Bisulfate 75 mg 12/14/20 09:00 12/14/20 08:53 Clopidogrel 75 Mg Tablet PO Not Given DAILY ELBA Enoxaparin Sodium 40 mg 12/14/20 09:00 12/14/20 08:51 Enoxaparin 40 Mg/0.4 Ml Syringe SUBQ 40 mg DAILY ELBA Administration Ferrous Gluconate 324 mg 12/14/20 14:00 12/15/20 08:14 Ferrous Gluconate 324 Mg Tablet PO 324 mg DAILYWM ELBA Administration Furosemide 40 mg 12/14/20 09:00 12/14/20 08:53 Furosemide 40 Mg/4 Ml Vial IVP 40 mg DAILY ELBA Administration Insulin Aspart 1 - 5 unit 12/14/20 17:00 12/15/20 08:24 Insulin Aspart 300 Unit/3 Ml Pen SUBQ Not Given 0800,1200,1700,2100 [facility] Protocol Insulin Aspart 1 - 9 unit 12/14/20 21:00 12/14/20 20:38 Insulin Aspart 300 Unit/3 Ml Pen SUBQ 5 unit 0800,1200,1700,2100 [facility] Administration Protocol Insulin Glargine 10 unit 12/14/20 21:00 12/14/20 20:38 Insulin Glargine 300 Unit/3 Ml Pen SUBQ 10 unit QPM ELBA Administration Isosorbide Mononitrate 60 mg 12/14/20 09:00 12/14/20 08:50 Isosorbide Mononitrate Er 30 Mg Tablet PO 60 mg DAILY ELBA Administration Levothyroxine Sodium 250 mcg 12/14/20 07:15 12/15/20 06:42 Levothyroxine 125 Mcg Tablet PO 250 mcg QDAC ELBA Administration Magnesium Oxide 400 mg 12/14/20 17:00 12/14/20 17:36 Magnesium Oxide 400 Mg Tablet PO 400 mg 1200 ELBA Administration Metoprolol Succinate 25 mg 12/14/20 09:00 12/14/20 08:51 Metoprolol Succinate 25 Mg Tablet PO 25 mg DAILY ELBA Administration Patient Own Medication 1 each 12/14/20 09:00 12/14/20 20:44 Patient Own Med PO Not Given BID ELBA Sodium Chloride 10 ml 12/14/20 09:00 12/15/20 00:18 Sodium Chloride Flush 0.9% 10 Ml Syringe IVP 10 ml 0100,0900,1700 ELBA Administration Tramadol HCl 50 mg 12/14/20 20:43 12/14/20 21:09 Tramadol 50 Mg Tablet PO 50 mg BID PRN Administration PAIN - Lab Result Fish Bone Diagrams: 12/15/20 05:35 12/15/20 05:35 Subjective - Subjective Patient Reports: Other (Patient was resting comfortably in bed. She reports her rashes status is about the same as it normally is. She reports using 4 L of oxygen via nasal cannula at baseline at home. With slight activity she is significantly dyspneic. She was also briefly tachycardic into the 130s. She denied any oth) Objective Vital Signs: Vital Signs - 24 hr 12/14/20 12/14/20 12/14/20 11:40 12:25 15:16 Temperature 36.6 C Heart Rate 70 70 Heart Rate [ Brachial] Heart Rate [ 70 Monitoring electrodes] Respiratory 20 24 19 Rate Blood Pressure 122/53 L [Right Brachial artery] O2 Saturation 96 12/14/20 12/14/20 12/14/20 16:15 19:45 20:41 Temperature 36.7 C 36.6 C Heart Rate 73 Heart Rate [ Brachial] Heart Rate [ 71 80 Monitoring electrodes] Respiratory 18 18 24 Rate Blood Pressure 111/55 L 127/46 L [Right Brachial artery] O2 Saturation 92 92 12/15/20 12/15/20 12/15/20 00:17 05:51 07:28 Temperature 36.4 C L 36.4 C L 36.2 C L Heart Rate Heart Rate [ 72 71 Brachial] Heart Rate [ 73 Monitoring electrodes] Respiratory 22 20 16 Rate Blood Pressure 147/75 H 148/66 H 155/55 H [Right Brachial artery] O2 Saturation 97 96 96 Oxygen O2 Source Oxymask Oxygen Flow Rate 5 I&O (Last 24 Hrs): Intake and Output Totals x24h 12/13/20 12/14/20 12/15/20 23:59 23:59 23:59 Intake Total 10 1403 100 Output Total 500 200 Balance 10 903 -100 General: Alert, Oriented x3, Mild distress HEENT: Atraumatic, PERRLA, EOMI Neck: Supple, No JVD Neuro: Alert, Oriented Times 3 Cardiovascular: Regular rate Respiratory: Chest non-tender, Other (Mild dyspnea with exertion or talking) Abdomen: Normal bowel sounds, Soft, No tenderness, No masses Extremities: No clubbing, No cyanosis, Other (Trace to +1 edema bilaterally) Skin: No rashes, No breakdown, No significant lesion - Results Results: Laboratory Results WBC 14.2 x10^3/uL (4.8-10.8) H 12/15/20 05:35 RBC 3.69 10^6/uL (4.20-5.40) L 12/15/20 05:35 Hgb 9.8 g/dL (12.0-16.0) L 12/15/20 05:35 Hct 32.3 % (37.0-47.0) L 12/15/20 05:35 MCV 87.5 fL (81.0-99.0) 12/15/20 05:35 MCH 26.6 pg (27.0-31.0) L 12/15/20 05:35 MCHC 30.3 g/dL (32.0-36.0) L 12/15/20 05:35 RDW 17.1 % (12.0-15.0) H 12/15/20 05:35 Plt Count 424 10^3/uL (130-450) 12/15/20 05:35 MPV 10.1 fL (7.9-10.8) 12/15/20 05:35 Neut # (Auto) 11.7 10^3/uL (1.5-6.6) H 12/15/20 05:35 Lymph # (Auto) 1.4 10^3/uL (1.5-3.5) L 12/15/20 05:35 [place] # (Auto) 1.0 10^3/uL (0.0-1.0) 12/15/20 05:35 Eos # (Auto) 0.0 10^3/uL (0.0-0.7) 12/15/20 05:35 Baso # (Auto) 0.0 10^3/uL (0.0-0.1) 12/15/20 05:35 Absolute Nucleated RBC 0.00 x10^3/uL 12/15/20 05:35 Nucleated RBC % 0.0 /100WBC 12/15/20 05:35 Sodium 134 mmol/L (135-145) L 12/15/20 05:35 Potassium 4.0 mmol/L (3.5-5.0) 12/15/20 05:35 Chloride 90 mmol/L (101-111) L 12/15/20 05:35 Carbon Dioxide 35 mmol/L (21-32) H 12/15/20 05:35 Anion Gap 9.0 (6-13) 12/15/20 05:35 BUN 21 mg/dL (6-20) H 12/15/20 05:35 Creatinine 0.6 mg/dL (0.4-1.0) 12/15/20 05:35 Estimated GFR (MDRD) 95 (>89) 12/15/20 05:35 Glucose 162 mg/dL (70-100) H 12/15/20 05:35 POC Whole Bld Glucose 142 mg/dL (70 - 100) H 12/15/20 07:21 Estimat Average Glucose 151 mg/dL (70-100) H 12/15/20 05:35 Hemoglobin A1c % 6.9 % (4.27-6.07) H 12/15/20 05:35 Lactic Acid 0.9 mmol/L (0.5-2.2) 12/14/20 00:15 Calcium 8.7 mg/dL (8.5-10.3) 12/15/20 05:35 Magnesium 1.7 mg/dL (1.7-2.8) 12/15/20 05:35 Iron 19 ug/dL (28-170) L 12/14/20 07:31 TIBC 361 ug/dL (250-450) 12/14/20 07:31 % Saturation 5 % (20-50) L 12/14/20 07:31 Transferrin 258 mg/dL (192-382) 12/14/20 07:31 Ferritin 82.9 ng/mL (11.0-306.8) 12/14/20 07:31 Troponin I High Sens 6.9 ng/L (2.3-14.8) 12/13/20 22:33 B-Natriuretic Peptide 147 pg/mL (5-100) H 12/13/20 22:33 Nasal Adenovirus (PCR) NOT DETECTED 12/13/20 22:33 Nasal B. parapertussis DNA (PCR) NOT DETECTED 12/13/20 22:33 Nasal Coronavir 229E PCR NOT DETECTED 12/13/20 22:33 Nasal Coronavir HKU1 PCR NOT DETECTED 12/13/20 22:33 Nasal Coronavir NL63 PCR NOT DETECTED 12/13/20 22:33 Nasal Coronavir OC43 PCR NOT DETECTED 12/13/20 22:33 Nasal Enterovir/Rhinovir PCR NOT DETECTED 12/13/20 22:33 Nasal Influenza B PCR NOT DETECTED 12/13/20 22:33 Nasal Influenza A PCR NOT DETECTED 12/13/20 22:33 Nasal Parainfluen 1 PCR NOT DETECTED 12/13/20 22:33 Nasal Parainfluen 2 PCR NOT DETECTED 12/13/20 22:33 Nasal Parainfluen 3 PCR NOT DETECTED 12/13/20 22:33 Nasal Parainfluen 4 PCR NOT DETECTED 12/13/20 22:33 Nasal RSV (PCR) NOT DETECTED 12/13/20 22:33 Nasal B.pertussis DNA PCR NOT DETECTED 12/13/20 22:33 Nasal C.pneumoniae (PCR) NOT DETECTED 12/13/20 22:33 Yaakov Human Metapneumo PCR NOT DETECTED 12/13/20 22:33 Nasal M.pneumoniae (PCR) NOT DETECTED 12/13/20 22:33 Nasal SARS-CoV-2 (PCR) NOT DETECTED 12/13/20 22:33 - Procedures Procedures: Procedures OPEN RED-INT FIX HUMERUS (09/25/14) REMOVAL OF INT FIX FROM L HUMERAL HEAD, OPEN APPROACH (01/08/15) REPOSITION LEFT SHOULDER JOINT, EXTERNAL APPROACH (01/08/15) TRANSFUSE NONAUT RED BLOOD CELLS IN PERIPH VEIN, PERC (11/21/15) ABX Reporting Has patient been on IV antibiotics over the past 48 hours?: No
[2020-12-15] MEDS: ISOSORBIDE MONONITRATE ER 30 MG TABLET PO SCH (08:41)
[2020-12-15] MEDS: CLOPIDOGREL 75 MG TABLET PO SCH (08:41)
[2020-12-15] MEDS: amLODIPine 5 MG TABLET PO SCH (08:44)
[2020-12-15] MEDS: FUROSEMIDE 40 MG/4 ML VIAL IVP SCH (08:51)
[2020-12-15] MEDS: ENOXAPARIN 40 MG/0.4 ML SYRINGE SUBQ SCH (09:00)
[2020-12-15] MEDS: METOPROLOL SUCCINATE 25 MG TABLET PO SCH (09:00)
[2020-12-15] MEDS: traMADol 50 MG TABLET PO PRN ×2 (09:15→20:41)
[2020-12-15] MEDS: IPRATROPIUM/ALBUTEROL 3 ML NEB INH SCH ×4 (09:19→23:38)
[2020-12-15] MEDS: DRONEDARONE HCL 400 MG PO SCH ×2 (12:48→20:42)
[2020-12-15] MEDS: MAGNESIUM OXIDE 400 MG TABLET PO SCH (17:12)
[2020-12-15] MEDS: INSULIN GLARGINE 300 UNIT/3 ML PEN SUBQ SCH (20:38)
[2020-12-15] MEDS: ATORVASTATIN 10 MG TABLET PO SCH (20:41)
[2020-12-16] MEDS: SODIUM CHLORIDE FLUSH 0.9% 10 ML SYRINGE IVP SCH ×3 (00:35→16:40)
[2020-12-16] MEDS: LEVOTHYROXINE 125 MCG TABLET PO SCH (05:52)
[2020-12-16 06:09] LABS: BASOPHILS % (AUTO) 0.3 %; EOSINOPHILS # (AUTO) 0.3 10^3/uL (0.0-0.7); HCT - HEMATOCRIT 34.6 % (37.0-47.0); HGB - HEMOGLOBIN 10.2 g/dL (12.0-16.0); LYMPHOCYTES # (AUTO) 1.8 10^3/uL (1.5-3.5); LYMPHOCYTES % (AUTO) 14.4 %; MEAN CORPUSCULAR HEMOGLOBIN 26.2 pg (27.0-31.0); MEAN CORPUSCULAR HGB CONC 29.5 g/dL (32.0-36.0); MEAN CORPUSCULAR VOLUME 88.9 fL (81.0-99.0); MEAN PLATELET VOLUME 10.3 fL (7.9-10.8); MONOCYTES # (AUTO) 1.3 10^3/uL (0.0-1.0); MONOCYTES % (AUTO) 10.4 %; NEUTROPHILS # (AUTO) 8.9 10^3/uL (1.5-6.6); NEUTROPHILS % (AUTO) 72.5 %; NRBC ABSOLUTE COUNT (AUTO) 0.02 x10^3/uL; NUCLEATED RED BLOOD CELLS AUTO 0.2 /100WBC; PLT - PLATELET COUNT 392 10^3/uL (130-450); RED BLOOD COUNT 3.89 10^6/uL (4.20-5.40); RED CELL DISTRIBUTION WIDTH 17.3 % (12.0-15.0); WHITE BLOOD COUNT 12.2 x10^3/uL (4.8-10.8)
[2020-12-16 06:13] LABS: CALCIUM 8.9 mg/dL (8.5-10.3); CREATININE 0.7 mg/dL (0.4-1.0); MAGNESIUM 1.9 mg/dL (1.7-2.8); POTASSIUM 3.9 mmol/L (3.5-5.0)
[2020-12-16] MEDS: ENOXAPARIN 40 MG/0.4 ML SYRINGE SUBQ SCH (08:07)
[2020-12-16] MEDS: FUROSEMIDE 40 MG/4 ML VIAL IVP SCH ×3 (08:13→20:39)
[2020-12-16] MEDS: INSULIN ASPART 300 UNIT/3 ML PEN SUBQ SCH ×4 (08:14→20:40)
[2020-12-16] MEDS: amLODIPine 5 MG TABLET PO SCH (08:16)
[2020-12-16] MEDS: METOPROLOL SUCCINATE 25 MG TABLET PO SCH ×2 (08:17→08:18)
[2020-12-16] MEDS: FERROUS GLUCONATE 324 MG TABLET PO SCH (08:18)
[2020-12-16] MEDS: CLOPIDOGREL 75 MG TABLET PO SCH (08:19)
[2020-12-16] MEDS: ISOSORBIDE MONONITRATE ER 30 MG TABLET PO SCH (08:20)
[2020-12-16] MEDS: DRONEDARONE HCL 400 MG PO SCH ×2 (08:21→20:39)
[2020-12-16] MEDS: IPRATROPIUM/ALBUTEROL 3 ML NEB INH SCH ×4 (08:45→20:12)
[2020-12-16] MEDS: MAGNESIUM OXIDE 400 MG TABLET PO SCH (12:05)
--- NOTE | 2020-12-16 14:04 | PROVIDER PROGRESS NOTE ---
Assessment/Plan - Problem List (1) Acute on chronic respiratory failure with hypoxia Assessment/Plan: This is likely exacerbated by acute on chronic CHF. During an oxygen desaturation study this morning patient's oxygen saturation dropped to 80% 11 while on 4 L. Patient's Lasix increased to 40 mg IV bid. Will reassess tomorrow Continue metoprolol succinate 25 mg p.o. daily. We will continue to monitor I's and O's and daily weights. 2D echocardiogram done on 12/14/2020 showed preserved ejection fraction at 70 to 75%. RVSP at rest is 70 mmHg. There is moderate to severe left atrial volume index. Mild ventricular enlargement with normal right ventricular systolic function. (2) Acute on chronic diastolic CHF (congestive heart failure) Assessment/Plan: Patient's Lasix increased to 40 mg IV bid. Will reassess tomorrow Continue metoprolol succinate 25 mg p.o. daily. We will continue to monitor I's and O's and daily weights. 2D echocardiogram done on 12/14/2020 showed preserved ejection fraction at 70 to 75%. RVSP at rest is 70 mmHg. There is moderate to severe left atrial volume index. Mild ventricular enlargement with normal right ventricular systolic function. (3) COPD (chronic obstructive pulmonary disease) Assessment/Plan: Not in exacerbation. Continue home pulmonary regimen. (4) PVD (peripheral vascular disease) Assessment/Plan: On Lipitor and Plavix. (5) CAD (coronary artery disease) Assessment/Plan: Patient has history of coronary disease with CABG in the past. We will continue patient's metoprolol, Imdur, Plavix and Lipitor. (6) Iron deficiency anemia Assessment/Plan: Hemoglobin stable at 10.2. Iron level is low at 19, TIBC 361, percent saturation 5, transferrin 258 and ferritin 82.9 Currently on ferrous gluconate 325 mg p.o. daily. (7) Hypothyroidism Assessment/Plan: On Synthroid 250 mcg p.o. daily AC - Current Meds Current Meds: Current Medications Generic Name Dose Route Start Last Admin Trade Name Freq PRN Reason Stop Dose Admin Albuterol/Ipratropium 3 ml 12/14/20 07:00 12/16/20 10:06 Ipratropium/Albuterol 3 Ml Neb INH 3 ml RTQID ELBA Administration Amlodipine Besylate 10 mg 12/14/20 09:00 12/16/20 08:16 Amlodipine 5 Mg Tablet PO 10 mg DAILY ELBA Administration Atorvastatin Calcium 10 mg 12/14/20 03:00 12/15/20 20:41 Atorvastatin 10 Mg Tablet PO 10 mg QPM ELBA Administration Clopidogrel Bisulfate 75 mg 12/14/20 09:00 12/16/20 08:19 Clopidogrel 75 Mg Tablet PO 75 mg DAILY ELBA Administration Enoxaparin Sodium 40 mg 12/14/20 09:00 12/16/20 08:07 Enoxaparin 40 Mg/0.4 Ml Syringe SUBQ 40 mg DAILY ELBA Administration Ferrous Gluconate 324 mg 12/14/20 14:00 12/16/20 08:18 Ferrous Gluconate 324 Mg Tablet PO 324 mg DAILYWM ELBA Administration Furosemide 40 mg 12/16/20 13:00 12/16/20 13:29 Furosemide 40 Mg/4 Ml Vial IVP 40 mg BID ELBA Administration Insulin Aspart 1 - 9 unit 12/14/20 21:00 12/16/20 12:01 Insulin Aspart 300 Unit/3 Ml Pen SUBQ 5 unit 0800,1200,1700,2100 ELBA Administration Protocol Insulin Glargine 10 unit 12/14/20 21:00 12/15/20 20:38 Insulin Glargine 300 Unit/3 Ml Pen SUBQ 10 unit QPM ELBA Administration Isosorbide Mononitrate 60 mg 12/14/20 09:00 12/16/20 08:20 Isosorbide Mononitrate Er 30 Mg Tablet PO 60 mg DAILY ELBA Administration Levothyroxine Sodium 250 mcg 12/14/20 07:15 12/16/20 05:52 Levothyroxine 125 Mcg Tablet PO 250 mcg QDAC ELBA Administration Magnesium Oxide 400 mg 12/14/20 17:00 12/16/20 12:05 Magnesium Oxide 400 Mg Tablet PO 400 mg 1200 ELBA Administration Metoprolol Succinate 25 mg 12/14/20 09:00 12/16/20 08:18 Metoprolol Succinate 25 Mg Tablet PO 25 mg DAILY ELBA Administration Ondansetron HCl 4 mg 12/14/20 01:59 12/15/20 17:57 Ondansetron Odt 4 Mg Tablet TL 4 mg Q6HR PRN Administration Nausea / Vomiting Dronedarone Hcl [ 1 each 12/15/20 13:00 12/16/20 08:21 Multaq] 400 Mg PO 1 each Tablet BID ELBA Administration Sodium Chloride 10 ml 12/14/20 09:00 12/16/20 08:22 Sodium Chloride Flush 0.9% 10 Ml Syringe IVP 10 ml 0100,0900,1700 ELBA Administration Tramadol HCl 50 mg 12/14/20 20:43 12/15/20 20:41 Tramadol 50 Mg Tablet PO 50 mg BID PRN Administration PAIN - Lab Result Fish Bone Diagrams: 12/16/20 05:47 12/16/20 05:47 - Additional Planning My Orders: My Active Orders 12/16/20 10:29 Oxygen Desat. Study w/Exercise [RC] .ONCE 12/16/20 13:00 FUROSEMIDE INJ 40mg VIAL [LASIX INJ 40 mg VIAL] 40 mg IVP BID Subjective - Subjective Patient Reports: Other (Resting comfortably in the bedside chair at time of exam. No conversational dyspnea noted today. However during the desaturation study on 4 L patient's oxygen dropped to the 80s. Mild crackles noted in lungs bilaterally. +1 edema noted bilaterally.) Objective Vital Signs: Vital Signs - 24 hr 12/15/20 12/15/20 12/15/20 15:45 16:30 19:20 Temperature 36.6 C Heart Rate 70 70 Heart Rate [ 70 Brachial] Respiratory 16 18 18 Rate Blood Pressure 137/46 H [Right Brachial artery] O2 Saturation 93 12/15/20 12/16/20 12/16/20 21:00 00:35 05:00 Temperature 36.7 C 36.5 C 36.3 C L Heart Rate Heart Rate [ 70 71 70 Brachial] Respiratory 18 20 20 Rate Blood Pressure 137/49 H 128/55 L 141/49 H [Right Brachial artery] O2 Saturation 97 95 92 12/16/20 12/16/20 12/16/20 07:27 10:06 12:35 Temperature 36.4 C L 36.6 C Heart Rate 70 Heart Rate [ 70 69 Brachial] Respiratory 18 14 16 Rate Blood Pressure 145/40 H 128/66 [Right Brachial artery] O2 Saturation 93 94 Oxygen O2 Source Nasal cannula Oxygen Flow Rate 5 I&O (Last 24 Hrs): Intake and Output Totals x24h 12/14/20 12/15/20 12/16/20 23:59 23:59 23:59 Intake Total 1403 710 510 Output Total 500 1150 1100 Balance 903 -440 -590 General: Alert, Oriented x3, Mild distress HEENT: Atraumatic, PERRLA, EOMI Neck: Supple, No JVD Neuro: Alert, Oriented Times 3 Cardiovascular: Regular rate Respiratory: Chest non-tender, Other (Mild crackles on lung bases bilaterally. Dyspnea on exertion.) Abdomen: Normal bowel sounds, Soft, No tenderness Extremities: No clubbing, No cyanosis, Other (+1 lower extremity edema) Skin: No rashes, No breakdown, No significant lesion - Results Results: Laboratory Results WBC 12.2 x10^3/uL (4.8-10.8) H 12/16/20 05:47 RBC 3.89 10^6/uL (4.20-5.40) L 12/16/20 05:47 Hgb 10.2 g/dL (12.0-16.0) L 12/16/20 05:47 Hct 34.6 % (37.0-47.0) L 12/16/20 05:47 MCV 88.9 fL (81.0-99.0) 12/16/20 05:47 MCH 26.2 pg (27.0-31.0) L 12/16/20 05:47 MCHC 29.5 g/dL (32.0-36.0) L 12/16/20 05:47 RDW 17.3 % (12.0-15.0) H 12/16/20 05:47 Plt Count 392 10^3/uL (130-450) 12/16/20 05:47 MPV 10.3 fL (7.9-10.8) 12/16/20 05:47 Neut # (Auto) 8.9 10^3/uL (1.5-6.6) H 12/16/20 05:47 Lymph # (Auto) 1.8 10^3/uL (1.5-3.5) 12/16/20 05:47 [place] # (Auto) 1.3 10^3/uL (0.0-1.0) H 12/16/20 05:47 Eos # (Auto) 0.3 10^3/uL (0.0-0.7) 12/16/20 05:47 Baso # (Auto) 0.0 10^3/uL (0.0-0.1) 12/16/20 05:47 Absolute Nucleated RBC 0.02 x10^3/uL 12/16/20 05:47 Nucleated RBC % 0.2 /100WBC 12/16/20 05:47 Sodium 137 mmol/L (135-145) 12/16/20 05:47 Potassium 3.9 mmol/L (3.5-5.0) 12/16/20 05:47 Chloride 90 mmol/L (101-111) L 12/16/20 05:47 Carbon Dioxide 36 mmol/L (21-32) H 12/16/20 05:47 Anion Gap 11.0 (6-13) 12/16/20 05:47 BUN 21 mg/dL (6-20) H 12/16/20 05:47 Creatinine 0.7 mg/dL (0.4-1.0) 12/16/20 05:47 Estimated GFR (MDRD) 79 (>89) L 12/16/20 05:47 Glucose 116 mg/dL (70-100) H 12/16/20 05:47 POC Whole Bld Glucose 229 mg/dL (70 - 100) H 12/16/20 11:08 Estimat Average Glucose 151 mg/dL (70-100) H 12/15/20 05:35 Hemoglobin A1c % 6.9 % (4.27-6.07) H 12/15/20 05:35 Lactic Acid 0.9 mmol/L (0.5-2.2) 12/14/20 00:15 Calcium 8.9 mg/dL (8.5-10.3) 12/16/20 05:47 Magnesium 1.9 mg/dL (1.7-2.8) 12/16/20 05:47 Iron 19 ug/dL (28-170) L 12/14/20 07:31 TIBC 361 ug/dL (250-450) 12/14/20 07:31 % Saturation 5 % (20-50) L 12/14/20 07:31 Transferrin 258 mg/dL (192-382) 12/14/20 07:31 Ferritin 82.9 ng/mL (11.0-306.8) 12/14/20 07:31 Troponin I High Sens 6.9 ng/L (2.3-14.8) 12/13/20 22:33 B-Natriuretic Peptide 147 pg/mL (5-100) H 12/13/20 22:33 Nasal Adenovirus (PCR) NOT DETECTED 12/13/20 22:33 Nasal B. parapertussis DNA (PCR) NOT DETECTED 12/13/20 22:33 Nasal Coronavir 229E PCR NOT DETECTED 12/13/20 22:33 Nasal Coronavir HKU1 PCR NOT DETECTED 12/13/20 22:33 Nasal Coronavir NL63 PCR NOT DETECTED 12/13/20 22:33 Nasal Coronavir OC43 PCR NOT DETECTED 12/13/20 22:33 Nasal Enterovir/Rhinovir PCR NOT DETECTED 12/13/20 22:33 Nasal Influenza B PCR NOT DETECTED 12/13/20 22:33 Nasal Influenza A PCR NOT DETECTED 12/13/20 22:33 Nasal Parainfluen 1 PCR NOT DETECTED 12/13/20 22:33 Nasal Parainfluen 2 PCR NOT DETECTED 12/13/20 22:33 Nasal Parainfluen 3 PCR NOT DETECTED 12/13/20 22:33 Nasal Parainfluen 4 PCR NOT DETECTED 12/13/20 22:33 Nasal RSV (PCR) NOT DETECTED 12/13/20 22:33 Nasal B.pertussis DNA PCR NOT DETECTED 12/13/20 22:33 Nasal C.pneumoniae (PCR) NOT DETECTED 12/13/20 22:33 Yaakov Human Metapneumo PCR NOT DETECTED 12/13/20 22:33 Nasal M.pneumoniae (PCR) NOT DETECTED 12/13/20 22:33 Nasal SARS-CoV-2 (PCR) NOT DETECTED 12/13/20 22:33 - Procedures Procedures: Procedures OPEN RED-INT FIX HUMERUS (09/25/14) REMOVAL OF INT FIX FROM L HUMERAL HEAD, OPEN APPROACH (01/08/15) REPOSITION LEFT SHOULDER JOINT, EXTERNAL APPROACH (01/08/15) TRANSFUSE NONAUT RED BLOOD CELLS IN PERIPH VEIN, PERC (11/21/15) ABX Reporting Has patient been on IV antibiotics over the past 48 hours?: No
[2020-12-16] MEDS: traMADol 50 MG TABLET PO PRN (20:39)
[2020-12-16] MEDS: ATORVASTATIN 10 MG TABLET PO SCH (20:39)
[2020-12-16] MEDS: INSULIN GLARGINE 300 UNIT/3 ML PEN SUBQ SCH (20:42)
[2020-12-17] MEDS: SODIUM CHLORIDE FLUSH 0.9% 10 ML SYRINGE IVP SCH ×3 (00:18→12:03)
[2020-12-17] MEDS: LEVOTHYROXINE 125 MCG TABLET PO SCH (05:45)
[2020-12-17 05:53] LABS: BASOPHILS # (AUTO) 0.1 10^3/uL (0.0-0.1); BASOPHILS % (AUTO) 0.4 %; EOSINOPHILS # (AUTO) 0.3 10^3/uL (0.0-0.7); HCT - HEMATOCRIT 33.5 % (37.0-47.0); HGB - HEMOGLOBIN 9.8 g/dL (12.0-16.0); LYMPHOCYTES # (AUTO) 1.7 10^3/uL (1.5-3.5); MEAN CORPUSCULAR HEMOGLOBIN 25.9 pg (27.0-31.0); MEAN CORPUSCULAR HGB CONC 29.3 g/dL (32.0-36.0); MEAN CORPUSCULAR VOLUME 88.4 fL (81.0-99.0); MEAN PLATELET VOLUME 10.6 fL (7.9-10.8); MONOCYTES # (AUTO) 1.1 10^3/uL (0.0-1.0); MONOCYTES % (AUTO) 9.4 %; NEUTROPHILS # (AUTO) 8.2 10^3/uL (1.5-6.6); NEUTROPHILS % (AUTO) 71.6 %; NRBC ABSOLUTE COUNT (AUTO) 0.02 x10^3/uL; NUCLEATED RED BLOOD CELLS AUTO 0.2 /100WBC; PLT - PLATELET COUNT 350 10^3/uL (130-450); RED BLOOD COUNT 3.79 10^6/uL (4.20-5.40); RED CELL DISTRIBUTION WIDTH 17.3 % (12.0-15.0); WHITE BLOOD COUNT 11.5 x10^3/uL (4.8-10.8)
[2020-12-17 06:05] LABS: CALCIUM 8.5 mg/dL (8.5-10.3); CREATININE 0.7 mg/dL (0.4-1.0); MAGNESIUM 1.7 mg/dL (1.7-2.8); POTASSIUM 3.6 mmol/L (3.5-5.0)
--- NOTE | 2020-12-17 07:16 | PROVIDER PROGRESS NOTE ---
Assessment/Plan - Current Meds Current Meds: Current Medications Generic Name Dose Route Start Last Admin Trade Name Freq PRN Reason Stop Dose Admin Albuterol/Ipratropium 3 ml 12/14/20 07:00 12/16/20 20:12 Ipratropium/Albuterol 3 Ml Neb INH 3 ml RTQID ELBA Administration Amlodipine Besylate 10 mg 12/14/20 09:00 12/16/20 08:16 Amlodipine 5 Mg Tablet PO 10 mg DAILY ELBA Administration Atorvastatin Calcium 10 mg 12/14/20 03:00 12/16/20 20:39 Atorvastatin 10 Mg Tablet PO 10 mg QPM ELBA Administration Clopidogrel Bisulfate 75 mg 12/14/20 09:00 12/16/20 08:19 Clopidogrel 75 Mg Tablet PO 75 mg DAILY ELBA Administration Enoxaparin Sodium 40 mg 12/14/20 09:00 12/16/20 08:07 Enoxaparin 40 Mg/0.4 Ml Syringe SUBQ 40 mg DAILY ELBA Administration Ferrous Gluconate 324 mg 12/14/20 14:00 12/16/20 08:18 Ferrous Gluconate 324 Mg Tablet PO 324 mg DAILYWM ELBA Administration Furosemide 40 mg 12/16/20 13:00 12/16/20 20:39 Furosemide 40 Mg/4 Ml Vial IVP 40 mg BID ELBA Administration Insulin Aspart 1 - 9 unit 12/14/20 21:00 12/16/20 20:40 Insulin Aspart 300 Unit/3 Ml Pen SUBQ 5 unit 0800,1200,1700,2100 ELBA Administration Protocol Insulin Glargine 10 unit 12/14/20 21:00 12/16/20 20:42 Insulin Glargine 300 Unit/3 Ml Pen SUBQ 10 unit QPM ELBA Administration Isosorbide Mononitrate 60 mg 12/14/20 09:00 12/16/20 08:20 Isosorbide Mononitrate Er 30 Mg Tablet PO 60 mg DAILY ELBA Administration Levothyroxine Sodium 250 mcg 12/14/20 07:15 12/17/20 05:45 Levothyroxine 125 Mcg Tablet PO 250 mcg QDAC ELBA Administration Magnesium Oxide 400 mg 12/14/20 17:00 12/16/20 12:05 Magnesium Oxide 400 Mg Tablet PO 400 mg 1200 ELBA Administration Metoprolol Succinate 25 mg 12/14/20 09:00 12/16/20 08:18 Metoprolol Succinate 25 Mg Tablet PO 25 mg DAILY ELBA Administration Ondansetron HCl 4 mg 12/14/20 01:59 12/15/20 17:57 Ondansetron Odt 4 Mg Tablet TL 4 mg Q6HR PRN Administration Nausea / Vomiting Dronedarone Hcl [ 1 each 12/15/20 13:00 12/16/20 20:39 Multaq] 400 Mg PO 1 each Tablet BID ELBA Administration Sodium Chloride 10 ml 12/14/20 09:00 12/17/20 00:18 Sodium Chloride Flush 0.9% 10 Ml Syringe IVP 10 ml 0100,0900,1700 ELBA Administration Tramadol HCl 50 mg 12/14/20 20:43 12/16/20 20:39 Tramadol 50 Mg Tablet PO 50 mg BID PRN Administration PAIN - Lab Result Fish Bone Diagrams: 12/17/20 05:37 12/17/20 05:37 - Additional Planning My Orders: My Active Orders 12/16/20 10:29 Oxygen Desat. Study w/Exercise [RC] .ONCE 12/16/20 13:00 FUROSEMIDE INJ 40mg VIAL [LASIX INJ 40 mg VIAL] 40 mg IVP BID Objective Vital Signs: Vital Signs - 24 hr 12/16/20 12/16/20 12/16/20 07:27 10:06 12:35 Temperature 36.4 C L 36.6 C Heart Rate 70 Heart Rate [ 70 69 Brachial] Heart Rate [ Monitoring electrodes] Respiratory 18 14 16 Rate Blood Pressure [Left Brachial artery] Blood Pressure 145/40 H 128/66 [Right Brachial artery] O2 Saturation 93 94 12/16/20 12/16/20 12/16/20 15:10 17:00 19:53 Temperature 36.7 C 36.3 C L Heart Rate 71 Heart Rate [ 70 Brachial] Heart Rate [ 70 Monitoring electrodes] Respiratory 14 20 22 Rate Blood Pressure 127/52 L [Left Brachial artery] Blood Pressure 138/49 H [Right Brachial artery] O2 Saturation 93 96 12/16/20 12/17/20 12/17/20 20:39 00:16 05:00 Temperature 36.2 C L 36.4 C L Heart Rate 70 Heart Rate [ 70 70 Brachial] Heart Rate [ Monitoring electrodes] Respiratory 22 20 16 Rate Blood Pressure [Left Brachial artery] Blood Pressure 150/49 H 129/43 L [Right Brachial artery] O2 Saturation 98 95 Oxygen O2 Source Nasal cannula Oxygen Flow Rate 5 I&O (Last 24 Hrs): Intake and Output Totals x24h 12/15/20 12/16/20 12/17/20 23:59 23:59 23:59 Intake Total 710 920 300 Output Total 1150 2225 900 [facility] -633 -1142 -600 - Results Results: Laboratory Results WBC 11.5 x10^3/uL (4.8-10.8) H 12/17/20 05:37 RBC 3.79 10^6/uL (4.20-5.40) L 12/17/20 05:37 Hgb 9.8 g/dL (12.0-16.0) L 12/17/20 05:37 Hct 33.5 % (37.0-47.0) L 12/17/20 05:37 MCV 88.4 fL (81.0-99.0) 12/17/20 05:37 MCH 25.9 pg (27.0-31.0) L 12/17/20 05:37 MCHC 29.3 g/dL (32.0-36.0) L 12/17/20 05:37 RDW 17.3 % (12.0-15.0) H 12/17/20 05:37 Plt Count 350 10^3/uL (130-450) 12/17/20 05:37 MPV 10.6 fL (7.9-10.8) 12/17/20 05:37 Neut # (Auto) 8.2 10^3/uL (1.5-6.6) H 12/17/20 05:37 Lymph # (Auto) 1.7 10^3/uL (1.5-3.5) 12/17/20 05:37 Mccormick # (Auto) 1.1 10^3/uL (0.0-1.0) H 12/17/20 05:37 Eos # (Auto) 0.3 10^3/uL (0.0-0.7) 12/17/20 05:37 Baso # (Auto) 0.1 10^3/uL (0.0-0.1) 12/17/20 05:37 Absolute Nucleated RBC 0.02 x10^3/uL 12/17/20 05:37 Nucleated RBC % 0.2 /100WBC 12/17/20 05:37 Sodium 139 mmol/L (135-145) 12/17/20 05:37 Potassium 3.6 mmol/L (3.5-5.0) 12/17/20 05:37 Chloride 87 mmol/L (101-111) L 12/17/20 05:37 Carbon Dioxide 40 mmol/L (21-32) H* 12/17/20 05:37 Anion Gap 12.0 (6-13) 12/17/20 05:37 BUN 18 mg/dL (6-20) 12/17/20 05:37 Creatinine 0.7 mg/dL (0.4-1.0) 12/17/20 05:37 Estimated GFR (MDRD) 79 (>89) L 12/17/20 05:37 Glucose 103 mg/dL (70-100) H 12/17/20 05:37 POC Whole Bld Glucose 229 mg/dL (70 - 100) H 12/16/20 20:37 Estimat Average Glucose 151 mg/dL (70-100) H 12/15/20 05:35 Hemoglobin A1c % 6.9 % (4.27-6.07) H 12/15/20 05:35 Lactic Acid 0.9 mmol/L (0.5-2.2) 12/14/20 00:15 Calcium 8.5 mg/dL (8.5-10.3) 12/17/20 05:37 Magnesium 1.7 mg/dL (1.7-2.8) 12/17/20 05:37 Iron 19 ug/dL (28-170) L 12/14/20 07:31 TIBC 361 ug/dL (250-450) 12/14/20 07:31 % Saturation 5 % (20-50) L 12/14/20 07:31 Transferrin 258 mg/dL (192-382) 12/14/20 07:31 Ferritin 82.9 ng/mL (11.0-306.8) 12/14/20 07:31 Troponin I High Sens 6.9 ng/L (2.3-14.8) 12/13/20 22:33 B-Natriuretic Peptide 147 pg/mL (5-100) H 12/13/20 22:33 Nasal Adenovirus (PCR) NOT DETECTED 12/13/20 22:33 Nasal B. parapertussis DNA (PCR) NOT DETECTED 12/13/20 22:33 Nasal Coronavir 229E PCR NOT DETECTED 12/13/20 22:33 Nasal Coronavir HKU1 PCR NOT DETECTED 12/13/20 22:33 Nasal Coronavir NL63 PCR NOT DETECTED 12/13/20 22:33 Nasal Coronavir OC43 PCR NOT DETECTED 12/13/20 22:33 Nasal Enterovir/Rhinovir PCR NOT DETECTED 12/13/20 22:33 Nasal Influenza B PCR NOT DETECTED 12/13/20 22:33 Nasal Influenza A PCR NOT DETECTED 12/13/20 22:33 Nasal Parainfluen 1 PCR NOT DETECTED 12/13/20 22:33 Nasal Parainfluen 2 PCR NOT DETECTED 12/13/20 22:33 Nasal Parainfluen 3 PCR NOT DETECTED 12/13/20 22:33 Nasal Parainfluen 4 PCR NOT DETECTED 12/13/20 22:33 Nasal RSV (PCR) NOT DETECTED 12/13/20 22:33 Nasal B.pertussis DNA PCR NOT DETECTED 12/13/20 22:33 Nasal C.pneumoniae (PCR) NOT DETECTED 12/13/20 22:33 Yaakov Human Metapneumo PCR NOT DETECTED 12/13/20 22:33 Nasal M.pneumoniae (PCR) NOT DETECTED 12/13/20 22:33 Nasal SARS-CoV-2 (PCR) NOT DETECTED 12/13/20 22:33 - Procedures Procedures: Procedures OPEN RED-INT FIX HUMERUS (09/25/14) REMOVAL OF INT FIX FROM L HUMERAL HEAD, OPEN APPROACH (01/08/15) REPOSITION LEFT SHOULDER JOINT, EXTERNAL APPROACH (01/08/15) TRANSFUSE NONAUT RED BLOOD CELLS IN PERIPH VEIN, PERC (11/21/15)
[2020-12-17] MEDS: INSULIN ASPART 300 UNIT/3 ML PEN SUBQ SCH ×4 (07:47→21:06)
[2020-12-17] MEDS: IPRATROPIUM/ALBUTEROL 3 ML NEB INH SCH ×4 (07:57→18:22)
[2020-12-17] MEDS: FUROSEMIDE 40 MG/4 ML VIAL IVP SCH ×2 (09:20→12:02)
[2020-12-17] MEDS: ENOXAPARIN 40 MG/0.4 ML SYRINGE SUBQ SCH (09:20)
[2020-12-17] MEDS: FERROUS GLUCONATE 324 MG TABLET PO SCH (09:21)
[2020-12-17] MEDS: DRONEDARONE HCL 400 MG PO SCH ×2 (09:21→21:09)
[2020-12-17] MEDS: CLOPIDOGREL 75 MG TABLET PO SCH (09:21)
[2020-12-17] MEDS: ISOSORBIDE MONONITRATE ER 30 MG TABLET PO SCH (09:21)
[2020-12-17] MEDS: traMADol 50 MG TABLET PO PRN ×2 (09:30→21:04)
[2020-12-17 10:16] LABS: ABG BASE EXCESS 12.8 mmol/L (-2.0-3.0); ABG HCO3 37.6 mmol/L (22.0-26.0); ABG OXYGEN SATURATION 93 % (94-98); ABG PCO2 49 mmHg (34-45); ABG PO2 65 mmHg (80-100); ALLEN TEST POSITIVE
[2020-12-17 10:19] LABS: ABG TCO2 39.1 MMOL/L (21.0-29.0)
[2020-12-17] MEDS: MAGNESIUM OXIDE 400 MG TABLET PO SCH (12:02)
--- NOTE | 2020-12-17 12:43 | DISCHARGE SUMMARY ---
Discharge Summary Admit Date: 12/14/20 Discharge Date: 12/17/20 Discharging Provider: Nilesh Blanco Primary Care Provider: Ting Fabian Code Status: Do Not Attempt Resuscitation Condition at Discharge: Stable Discharge Disposition: 06 Home Health Service - DIAGNOSES Admission Diagnoses: Respiratory failure with hypoxia Acute on chronic diastolic CHF COPD PVD Coronary disease Iron deficiency anemia Hypothyroidism Discharge Diagnoses with Status of Each Condition: Acute on Chronic Respiratory failure with hypoxia: Improved Acute on chronic diastolic CHF: Improved with diuresis COPD: At baseline PVD: Chronic. Continue home medication Coronary artery disease: Chronic. Continue home medication Iron deficiency anemia: Supplemental iron Hypothyroidism: Chronic. Continue home medication - HPI History of Present Illness: Per HPI: This is a 85-year-old female with a past medical history significant for COPD on 4 L of oxygen, coronary artery disease, peripheral vascular disease, paroxysmal atrial fibrillation status post pacemaker, hypertension, iron deficiency anemia, hypothyroidism who presents today complaining of dyspnea. She states she has been short of breath since September 27. At that time, she was reportedly hospitalized at [facility] for pneumonia. She states she did well after that till earlier this month when she had anemia secondary to a GI bleed. She was transferred to [facility] in [place] where she states they believe the bleeding may have been due to her recent vascular surgery. She states she underwent an endoscopy which showed an ulcer that was not bleeding but there was another source of her GI bleed but she cannot recall what it was. She states she never required a blood transfusion. She felt okay on discharge but she returns today complaining of worsening shortness of breath again. She states she has a nonproductive cough and complains of orthopnea. She reports no fevers or chills. Denies chest pain. She has no abdominal pain, nausea, vomiting. Reports no dysuria, urgency, frequency. She states she is still taking Plavix and aspirin. She has not noticed any bleeding. She denies bloody stools or dark tarry stools and hematuria. She reports she is normally on 4 L of oxygen at baseline for her COPD and this was recently increased after her most recent discharge from [facility] in [place]. She was previously on 2 to 3 L of oxygen. She reports no wheezing and is compliant with her inhalers. She denies any weight gain or weight loss but does report a poor appetite over the last few weeks. In the emergency department, she is noted to be hypoxic requiring 5 to 6 L of oxygen to maintain saturation greater than 88%. Labs revealed a white count of 14.8 and a hemoglobin of 9.5. Her sodium was 131 and potassium 3.4. Troponin and lactic acid are within normal limits. Her BNP was 147. Chest x-ray was concerning for pulmonary vascular congestion. Initial EKG has significant artifact. Repeat EKG revealed a paced rhythm. She was given multiple breathing treatments and a dose of IV Lasix without improvement in her hypoxia. Given this, medicine was consulted for admission. We discussed goals of care and I confirmed with her that she is a DNR which is evident on her POLST. Hospital Course: Patient was started on Lasix 40 mg IV daily with daily weights and monitoring of I's and O's. She had a 2D echocardiogram done on 12/14/2020 which showed a preserved ejection fraction of 77 5%. RVSP at rest is 70 mmHg. There was moderate to severe left atrial volume index. Mild ventricular enlargement with normal right ventricular systolic function. Her home dose metoprolol succinate 25 mg p.o. daily was continued. On 12/16/2020 Lasix dose was increased to 40 mg IV twice daily. This resulted in further diuresis. On 12/17/2020 which was the day of discharge she was back to baseline oxygen requirement of 4 L with oxygen saturation between 95 and 98%. An ABG showed pH 7.50, PCO2 49, PO2 65, bicarb 37.6. PCO2 level is likely due to chronic CO2 retention owing to COPD. She was discharged with instructions to take Lasix 40 mg p.o. twice daily x5 days after which she would resume her home dose of Lasix 40 mg p.o. daily. She was advised to limit her salt intake. She was advised to follow-up with her primary care physician as needed. - ALLERGIES Allergies/Adverse Reactions: Allergies Allergy/AdvReac Type Severity Reaction Status Date / Time hydrochlorothiazide Allergy Severe Anaphylaxis Verified 12/13/20 22:23 sulfamethoxazole Allergy Severe Anaphylaxis Verified 12/13/20 22:23 [From ] trimethoprim [From ] Allergy Severe Anaphylaxis Verified 12/13/20 22:23 amlodipine AdvReac Severe Swelling Verified 12/13/20 22:23 to ankles and feeet atenolol AdvReac Severe Bradycardia Verified 12/13/20 22:23 Penicillins AdvReac Severe Anxiety/Swelling Verified 12/13/20 22:23 and redness at injection site - MEDICATIONS Home Medications: Ambulatory Orders Medication Instructions Recorded Confirmed Fluticasone [Flonase] 1 puffs NS BID 01/09/13 12/13/20 Olopatadine HCl [Patanol] 1 drop OP BID 01/09/13 12/13/20 traMADol [Ultram] 50 mg PO BID PRN 05/30/13 12/13/20 Dronedarone HCl [Multaq] 400 mg PO BID 01/07/15 12/13/20 Latanoprost [Xalatan] 1 drop OP DAILY 01/07/15 12/13/20 Fexofenadine HCl 180 mg PO DAILY 06/26/20 12/13/20 Losartan [Cozaar] 100 mg PO DAILY PM 06/26/20 12/13/20 Metoprolol Succinate [Toprol Xl] 25 mg PO DAILY 06/26/20 12/13/20 Albuterol 2.5 mg INH Q4H PRN 07/07/20 12/13/20 Atorvastatin [Lipitor] 10 mg PO DAILY PM 07/07/20 12/13/20 Isosorbide Mononitrate [Isosorbide 60 mg PO DAILY 07/07/20 12/13/20 Mononitrate ER] Levothyroxine Sodium [Synthroid] 250 mcg PO DAILY 07/07/20 12/13/20 amLODIPine [Norvasc] 10 mg PO DAILY 07/07/20 12/13/20 Acetaminophen [Tylenol] 650 mg PO Q6H PRN 10/10/20 12/13/20 Fluticasone/Salmeterol [Advair 1 each IH DAILY 10/10/20 12/13/20 250-50 Diskus] prednisoLONE 1% OPHTH DROPS [Pred 1 drops OPTH BID 10/10/20 12/13/20 Forte 1% Ophth Drops] Clopidogrel [Plavix] 75 mg PO DAILY 11/28/20 12/13/20 Furosemide [Lasix] 40 mg PO DAILY 12/15/20 12/13/20 Furosemide [Lasix] 40 mg PO QPM 5 Days #5 tablet 12/17/20 - PHYSICAL EXAM AT DISCHARGE General Appearance: positive: No acute distress, Alert Eyes Bilateral: positive: PERRL, EOMI ENT: positive: No signs of dehydration Neck: positive: No JVD, Trachea midline Respiratory: positive: No respiratory distress, Other (Mild crackles in lung bases) Cardiovascular: positive: Regular rate & rhythm Abdomen: positive: Non-tender, No organomegaly, Nml bowel sounds, No distention. negative: Guarding, Rebound Skin: positive: Color nml, No rash, Warm Extremities: positive: Pedal edema (Trace to +1 edema bilaterally) Neurologic/Psychiatric: positive: Oriented x3, Mood/affect nml - LABS Result Diagrams: 12/17/20 05:37 12/17/20 05:37 - TIME SPENT Time Spent in Discharge (Minutes): 25
--- NOTE | 2020-12-17 12:48 | Discharge Plan ---
Discharge Plan Problem Reviewed?: Yes Disposition: Home Health Service Condition: Stable Prescriptions: Furosemide [Lasix] 40 mg PO QPM 5 Days #5 tablet Diet: Cardiac Activity Restrictions: Activity as Tolerated Assistance Devices: [facility] Concerns: You were admitted on 12/14/2020 with shortness of breath for which work-up indicated that you were in CHF exacerbation. Had significant lower extremity edema and crackles on auscultation of the lungs. At baseline you require 4 L of oxygen at home due to COPD. When you presented to the hospital your oxygen saturation was 88% even on 5 to 6 L. You were admitted and started on Lasix 40 mg IV. Your Lasix dose was doubled about 36 to 48 hours prior to discharge. You had significant diuresis which resulted in improvement in your oxygenation level. By the time of discharge you were back to your baseline 4 L of oxygen with an oxygen saturation between 95 and 98%. You are being discharged home in stable condition. Upon discharge home your Lasix dose of 40 mg p.o. daily will be increased to 40 mg p.o. twice daily for 5 days. After which you would resume your regular Lasix 40 mg p.o. daily. You have been advised to watch your salt intake. You may follow-up with your primary care physician as needed. The above plan was explained to you, you expressed understanding and are in agreement with the plan Follow-Up Care: Home Health - RN, Home Health - PT, Home Health - OT No Smoking: If you smoke, Please STOP! Call for help.
--- NOTE | 2020-12-17 18:17 | PROVIDER PROGRESS NOTE ---
Assessment/Plan - Problem List (1) Acute on chronic respiratory failure with hypoxia Assessment/Plan: This is likely exacerbated by acute on chronic CHF. Since oxygen saturation today was 95 to 98% on 4 L at rest. On auscultation of her lungs breath sounds sounded improved with only mild crackles. Plan had been to discharge her. However shortly before discharge she complained of dizziness and feeling like she was not ready to go home. An attempt to ambulate her resulted in a precipitous drop of her oxygen saturation to 79% on 4 L. As a result the plan to discharge was canceled. Continue Lasix 40 mg IV twice daily. Reassess tomorrow. Continue metoprolol succinate 25 mg p.o. daily. We will continue to monitor I's and O's and daily weights. 2D echocardiogram done on 12/14/2020 showed preserved ejection fraction at 70 to 75%. RVSP at rest is 70 mmHg. There is moderate to severe left atrial volume index. Mild ventricular enlargement with normal right ventricular systolic function. (2) Acute on chronic diastolic CHF (congestive heart failure) Assessment/Plan: Continue Lasix 40 mg IV twice daily. Reassess tomorrow. Continue metoprolol succinate 25 mg p.o. daily. We will continue to monitor I's and O's and daily weights. 2D echocardiogram done on 12/14/2020 showed preserved ejection fraction at 70 to 75%. RVSP at rest is 70 mmHg. There is moderate to severe left atrial volume index. Mild ventricular enlargement with normal right ventricular systolic function. (3) COPD (chronic obstructive pulmonary disease) Assessment/Plan: Not in exacerbation. Continue home pulmonary regimen. (4) PVD (peripheral vascular disease) Assessment/Plan: On Lipitor and Plavix. (5) CAD (coronary artery disease) Assessment/Plan: Patient has history of coronary disease with CABG in the past. We will continue patient's metoprolol, Imdur, Plavix and Lipitor. (6) Iron deficiency anemia Assessment/Plan: Currently on ferrous gluconate 325 mg p.o. daily. (7) Hypothyroidism Assessment/Plan: On Synthroid 250 mcg p.o. daily AC - Current Meds Current Meds: Current Medications Generic Name Dose Route Start Last Admin Trade Name Freq PRN Reason Stop Dose Admin Albuterol/Ipratropium 3 ml 12/14/20 07:00 12/17/20 16:02 Ipratropium/Albuterol 3 Ml Neb INH 3 ml RTQID ELBA Administration Amlodipine Besylate 10 mg 12/14/20 09:00 12/16/20 08:16 Amlodipine 5 Mg Tablet PO 10 mg DAILY ELBA Administration Atorvastatin Calcium 10 mg 12/14/20 03:00 12/16/20 20:39 Atorvastatin 10 Mg Tablet PO 10 mg QPM ELBA Administration Clopidogrel Bisulfate 75 mg 12/14/20 09:00 12/17/20 09:21 Clopidogrel 75 Mg Tablet PO 75 mg DAILY ELBA Administration Enoxaparin Sodium 40 mg 12/14/20 09:00 12/17/20 09:20 Enoxaparin 40 Mg/0.4 Ml Syringe SUBQ 40 mg DAILY ELBA Administration Ferrous Gluconate 324 mg 12/14/20 14:00 12/17/20 09:21 Ferrous Gluconate 324 Mg Tablet PO 324 mg DAILYWM ELBA Administration Furosemide 40 mg 12/16/20 13:00 12/17/20 12:02 Furosemide 40 Mg/4 Ml Vial IVP 40 mg BID ELBA Administration Insulin Aspart 1 - 9 unit 12/14/20 21:00 12/17/20 17:10 Insulin Aspart 300 Unit/3 Ml Pen SUBQ 3 unit 0800,1200,1700,2100 ELBA Administration Protocol Insulin Glargine 10 unit 12/14/20 21:00 12/16/20 20:42 Insulin Glargine 300 Unit/3 Ml Pen SUBQ 10 unit QPM ELBA Administration Isosorbide Mononitrate 60 mg 12/14/20 09:00 12/17/20 09:21 Isosorbide Mononitrate Er 30 Mg Tablet PO 60 mg DAILY ELBA Administration Levothyroxine Sodium 250 mcg 12/14/20 07:15 12/17/20 05:45 Levothyroxine 125 Mcg Tablet PO 250 mcg QDAC ELBA Administration Magnesium Oxide 400 mg 12/14/20 17:00 12/17/20 12:02 Magnesium Oxide 400 Mg Tablet PO 400 mg 1200 ELBA Administration Metoprolol Succinate 25 mg 12/14/20 09:00 12/16/20 08:18 Metoprolol Succinate 25 Mg Tablet PO 25 mg DAILY ELBA Administration Ondansetron HCl 4 mg 12/14/20 01:59 12/15/20 17:57 Ondansetron Odt 4 Mg Tablet TL 4 mg Q6HR PRN Administration Nausea / Vomiting Dronedarone Hcl [ 1 each 12/15/20 13:00 12/17/20 09:21 Multaq] 400 Mg PO 1 each Tablet BID ELBA Administration Sodium Chloride 10 ml 12/14/20 09:00 12/17/20 12:03 Sodium Chloride Flush 0.9% 10 Ml Syringe IVP 10 ml 0100,0900,1700 ELBA Administration Tramadol HCl 50 mg 12/14/20 20:43 12/17/20 09:30 Tramadol 50 Mg Tablet PO 50 mg BID PRN Administration PAIN - Lab Result Fish Bone Diagrams: 12/17/20 05:37 12/17/20 05:37 - Additional Planning My Orders: My Active Orders 12/17/20 Home Health Referral [CONS] Routine 12/17/20 12:51 Discharge [RC] .ONCE Initiate Discharge Checklist [RC] .ONCE Subjective - Subjective Patient Reports: Other (Resting comfortably in bedside chair at time of initial exam. Improve breath sound on exam. O2Sat 95-98% on 4L. Shortly prior to discharge, reported feeling dizzy. O2Sat dropped to 79% with ambulation on 4L) Objective Vital Signs: Vital Signs - 24 hr 12/16/20 12/16/20 12/17/20 19:53 20:39 00:16 Temperature 36.3 C L 36.2 C L Heart Rate 70 Heart Rate [ 70 Brachial] Heart Rate [ 70 Monitoring electrodes] Respiratory 22 22 20 Rate Blood Pressure 127/52 L [Left Brachial artery] Blood Pressure 150/49 H [Right Brachial artery] O2 Saturation 96 98 12/17/20 12/17/20 12/17/20 05:00 07:58 08:18 Temperature 36.4 C L 36.6 C Heart Rate 70 Heart Rate [ 70 70 Brachial] Heart Rate [ Monitoring electrodes] Respiratory 16 18 20 Rate Blood Pressure [Left Brachial artery] Blood Pressure 129/43 L 137/48 H [Right Brachial artery] O2 Saturation 95 95 12/17/20 12/17/20 12/17/20 11:15 12:05 14:49 Temperature 36.6 C Heart Rate 74 Heart Rate [ 73 72 Brachial] Heart Rate [ Monitoring electrodes] Respiratory 18 18 24 Rate Blood Pressure [Left Brachial artery] Blood Pressure 111/55 L 118/55 L [Right Brachial artery] O2 Saturation 93 95 12/17/20 12/17/20 16:02 16:33 Temperature 36.6 C Heart Rate 72 Heart Rate [ 68 Brachial] Heart Rate [ Monitoring electrodes] Respiratory 18 20 Rate Blood Pressure [Left Brachial artery] Blood Pressure 129/52 L [Right Brachial artery] O2 Saturation 93 Oxygen O2 Source Nasal cannula Oxygen Flow Rate 5 I&O (Last 24 Hrs): Intake and Output Totals x24h 12/15/20 12/16/20 12/17/20 23:59 23:59 23:59 Intake Total 710 920 660 Output Total 1150 2225 1500 Balance -440 -1305 -840 General: Alert, Oriented x3, No acute distress HEENT: PERRLA, EOMI Neck: Supple, No JVD Neuro: Alert, Oriented Times 3 Cardiovascular: Regular rate Respiratory: Chest non-tender, No respiratory distress, Other (Mild crackles in lung bases) Abdomen: Normal bowel sounds, Soft, No tenderness, No masses Extremities: No clubbing, Other (Trace to +1 edema) Skin: No rashes, No breakdown, No significant lesion - Results Results: Laboratory Results WBC 11.5 x10^3/uL (4.8-10.8) H 12/17/20 05:37 RBC 3.79 10^6/uL (4.20-5.40) L 12/17/20 05:37 Hgb 9.8 g/dL (12.0-16.0) L 12/17/20 05:37 Hct 33.5 % (37.0-47.0) L 12/17/20 05:37 MCV 88.4 fL (81.0-99.0) 12/17/20 05:37 MCH 25.9 pg (27.0-31.0) L 12/17/20 05:37 MCHC 29.3 g/dL (32.0-36.0) L 12/17/20 05:37 RDW 17.3 % (12.0-15.0) H 12/17/20 05:37 Plt Count 350 10^3/uL (130-450) 12/17/20 05:37 MPV 10.6 fL (7.9-10.8) 12/17/20 05:37 Neut # (Auto) 8.2 10^3/uL (1.5-6.6) H 12/17/20 05:37 Lymph # (Auto) 1.7 10^3/uL (1.5-3.5) 12/17/20 05:37 [place] # (Auto) 1.1 10^3/uL (0.0-1.0) H 12/17/20 05:37 Eos # (Auto) 0.3 10^3/uL (0.0-0.7) 12/17/20 05:37 Baso # (Auto) 0.1 10^3/uL (0.0-0.1) 12/17/20 05:37 Absolute Nucleated RBC 0.02 x10^3/uL 12/17/20 05:37 Nucleated RBC % 0.2 /100WBC 12/17/20 05:37 Bld Gas Analysis Time 95612/17/20 09:57 Sample Site RIGHT RADIAL 12/17/20 09:57 ABG pH 7.50 (7.35-7.45) H 12/17/20 09:57 ABG pCO2 49 mmHg (34-45) H 12/17/20 09:57 ABG pO2 65 mmHg (80-100) L 12/17/20 09:57 ABG HCO3 37.6 mmol/L (22.0-26.0) H 12/17/20 09:57 ABG Total CO2 39.1 MMOL/L (21.0-29.0) H* 12/17/20 09:57 ABG O2 Saturation 93 % (94-98) L 12/17/20 09:57 ABG Base Excess 12.8 mmol/L (-2.0-3.0) H 12/17/20 09:57 Renan Test POSITIVE 12/17/20 09:57 O2 Delivery Device NASAL CANNULA 12/17/20 09:57 O2 Liters/Min 4.00 LPM 12/17/20 09:57 Sodium 139 mmol/L (135-145) 12/17/20 05:37 Potassium 3.6 mmol/L (3.5-5.0) 12/17/20 05:37 Chloride 87 mmol/L (101-111) L 12/17/20 05:37 Carbon Dioxide 40 mmol/L (21-32) H* 12/17/20 05:37 Anion Gap 12.0 (6-13) 12/17/20 05:37 BUN 18 mg/dL (6-20) 12/17/20 05:37 Creatinine 0.7 mg/dL (0.4-1.0) 12/17/20 05:37 Estimated GFR (MDRD) 79 (>89) L 12/17/20 05:37 Glucose 103 mg/dL (70-100) H 12/17/20 05:37 POC Whole Bld Glucose 197 mg/dL (70 - 100) H 12/17/20 16:54 Estimat Average Glucose 151 mg/dL (70-100) H 12/15/20 05:35 Hemoglobin A1c % 6.9 % (4.27-6.07) H 12/15/20 05:35 Lactic Acid 0.9 mmol/L (0.5-2.2) 12/14/20 00:15 Calcium 8.5 mg/dL (8.5-10.3) 12/17/20 05:37 Magnesium 1.7 mg/dL (1.7-2.8) 12/17/20 05:37 Iron 19 ug/dL (28-170) L 12/14/20 07:31 TIBC 361 ug/dL (250-450) 12/14/20 07:31 % Saturation 5 % (20-50) L 12/14/20 07:31 Transferrin 258 mg/dL (192-382) 12/14/20 07:31 Ferritin 82.9 ng/mL (11.0-306.8) 12/14/20 07:31 Troponin I High Sens 6.9 ng/L (2.3-14.8) 12/13/20 22:33 B-Natriuretic Peptide 147 pg/mL (5-100) H 12/13/20 22:33 Nasal Adenovirus (PCR) NOT DETECTED 12/13/20 22:33 Nasal B. parapertussis DNA (PCR) NOT DETECTED 12/13/20 22:33 Nasal Coronavir 229E PCR NOT DETECTED 12/13/20 22:33 Nasal Coronavir HKU1 PCR NOT DETECTED 12/13/20 22:33 Nasal Coronavir NL63 PCR NOT DETECTED 12/13/20 22:33 Nasal Coronavir OC43 PCR NOT DETECTED 12/13/20 22:33 Nasal Enterovir/Rhinovir PCR NOT DETECTED 12/13/20 22:33 Nasal Influenza B PCR NOT DETECTED 12/13/20 22:33 Nasal Influenza A PCR NOT DETECTED 12/13/20 22:33 Nasal Parainfluen 1 PCR NOT DETECTED 12/13/20 22:33 Nasal Parainfluen 2 PCR NOT DETECTED 12/13/20 22:33 Nasal Parainfluen 3 PCR NOT DETECTED 12/13/20 22:33 Nasal Parainfluen 4 PCR NOT DETECTED 12/13/20 22:33 Nasal RSV (PCR) NOT DETECTED 12/13/20 22:33 Nasal B.pertussis DNA PCR NOT DETECTED 12/13/20 22:33 Nasal C.pneumoniae (PCR) NOT DETECTED 12/13/20 22:33 Yaakov Human Metapneumo PCR NOT DETECTED 12/13/20 22:33 Nasal M.pneumoniae (PCR) NOT DETECTED 12/13/20 22:33 Nasal SARS-CoV-2 (PCR) NOT DETECTED 12/13/20 22:33 - Procedures Procedures: Procedures OPEN RED-INT FIX HUMERUS (09/25/14) REMOVAL OF INT FIX FROM L HUMERAL HEAD, OPEN APPROACH (01/08/15) REPOSITION LEFT SHOULDER JOINT, EXTERNAL APPROACH (01/08/15) TRANSFUSE NONAUT RED BLOOD CELLS IN PERIPH VEIN, PERC (11/21/15) ABX Reporting Has patient been on IV antibiotics over the past 48 hours?: No
[2020-12-17] MEDS: ATORVASTATIN 10 MG TABLET PO SCH (21:04)
[2020-12-17] MEDS: INSULIN GLARGINE 300 UNIT/3 ML PEN SUBQ SCH (21:07)
[2020-12-18 06:14] LABS: BASOPHILS # (AUTO) 0.1 10^3/uL (0.0-0.1); BASOPHILS % (AUTO) 0.7 %; EOSINOPHILS # (AUTO) 0.5 10^3/uL (0.0-0.7); HCT - HEMATOCRIT 33.9 % (37.0-47.0); HGB - HEMOGLOBIN 9.8 g/dL (12.0-16.0); LYMPHOCYTES # (AUTO) 1.8 10^3/uL (1.5-3.5); MEAN CORPUSCULAR HEMOGLOBIN 25.5 pg (27.0-31.0); MEAN CORPUSCULAR HGB CONC 28.9 g/dL (32.0-36.0); MEAN CORPUSCULAR VOLUME 88.3 fL (81.0-99.0); MEAN PLATELET VOLUME 10.1 fL (7.9-10.8); MONOCYTES % (AUTO) 8.8 %; NEUTROPHILS % (AUTO) 69.6 %; NRBC ABSOLUTE COUNT (AUTO) 0.02 x10^3/uL; NUCLEATED RED BLOOD CELLS AUTO 0.2 /100WBC; PLT - PLATELET COUNT 324 10^3/uL (130-450); RED BLOOD COUNT 3.84 10^6/uL (4.20-5.40); RED CELL DISTRIBUTION WIDTH 17.9 % (12.0-15.0); WHITE BLOOD COUNT 11.5 x10^3/uL (4.8-10.8)
[2020-12-18 06:21] LABS: SLIDE REVIEW? Indicated
[2020-12-18 06:24] LABS: CALCIUM 8.4 mg/dL (8.5-10.3); CREATININE 0.6 mg/dL (0.4-1.0); MAGNESIUM 1.9 mg/dL (1.7-2.8); POTASSIUM 3.5 mmol/L (3.5-5.0)
[2020-12-18] MEDS: LEVOTHYROXINE 125 MCG TABLET PO SCH (06:28)
[2020-12-18] MEDS: SODIUM CHLORIDE FLUSH 0.9% 10 ML SYRINGE IVP SCH ×3 (06:29→17:10)
[2020-12-18 06:54] LABS: PLATELET ESTIMATE, MANUAL NORMAL (130-450,000) (NORMAL)
[2020-12-18] MEDS: IPRATROPIUM/ALBUTEROL 3 ML NEB INH SCH ×4 (07:30→20:00)
[2020-12-18] MEDS ORDERED: FUROSEMIDE 20 MG TABLET PO STA (07:41)
--- NOTE | 2020-12-18 08:16 | XRAY Report ---
PROCEDURE: Chest 1 View X-Ray INDICATIONS: Crackles, hypoxia TECHNIQUE: One view of the chest was acquired. COMPARISON: December 13, 2020 FINDINGS: SUPPORT DEVICES: Left cardiac device and catheter exchanges. LUNG/PLEURA: Prominence of the interstitial markings, likely reflecting pulmonary edema. Blunting of the costovertebral sulci, compatible with pleural fluid. MEDIASTINUM: The cardiac silhouette is upper limits of normal. BONES/SOFT TISSUES: No acute abnormality. IMPRESSION: 1.Pulmonary edema pattern with small pleural effusions. Reviewed by: Dennys Leon MD on 12/18/2020 8:14 AM PDT Approved by: Dennys Leon MD on 12/18/2020 8:14 AM PDT Station ID: [id number]
[2020-12-18] MEDS: ENOXAPARIN 40 MG/0.4 ML SYRINGE SUBQ SCH (08:35)
[2020-12-18] MEDS: INSULIN ASPART 300 UNIT/3 ML PEN SUBQ SCH ×4 (08:35→20:58)
[2020-12-18] MEDS: amLODIPine 5 MG TABLET PO SCH (08:36)
[2020-12-18] MEDS: METOPROLOL SUCCINATE 25 MG TABLET PO SCH (08:37)
[2020-12-18] MEDS: traMADol 50 MG TABLET PO PRN ×2 (08:37→21:03)
[2020-12-18] MEDS: FERROUS GLUCONATE 324 MG TABLET PO SCH (08:37)
[2020-12-18] MEDS: ISOSORBIDE MONONITRATE ER 30 MG TABLET PO SCH (08:37)
[2020-12-18] MEDS: CLOPIDOGREL 75 MG TABLET PO SCH (08:37)
[2020-12-18] MEDS: FUROSEMIDE 40 MG/4 ML VIAL IVP SCH ×2 (08:38→21:07)
[2020-12-18] MEDS: DRONEDARONE HCL 400 MG PO SCH ×2 (08:39→21:03)
--- NOTE | 2020-12-18 11:35 | PROVIDER PROGRESS NOTE ---
Assessment/Plan - Problem List (1) Acute on chronic respiratory failure with hypoxia Assessment/Plan: This is likely exacerbated by acute on chronic CHF. Oxygen saturation is between 93 and 98% on 4 L at rest. However oxygen saturation drops precipitously with activity. This is likely exacerbated by acute on chronic CHF. Anticipating discharge on 12/21/20. (2) Acute on chronic diastolic CHF (congestive heart failure) Assessment/Plan: This is likely exacerbated by acute on chronic CHF. Repeat CXR on 12/18/20 showed pulmonary edema pattern Continue Lasix 40 mg IV twice daily. Reassess tomorrow. Continue metoprolol succinate 25 mg p.o. daily. We will continue to monitor I's and O's and daily weights. 2D echocardiogram done on 12/14/2020 showed preserved ejection fraction at 70 to 75%. RVSP at rest is 70 mmHg. There is moderate to severe left atrial volume index. Mild ventricular enlargement with normal right ventricular systolic function. (3) COPD (chronic obstructive pulmonary disease) Assessment/Plan: Not in exacerbation. Continue home pulmonary regimen. (5) CAD (coronary artery disease) Assessment/Plan: Patient has history of coronary disease with CABG in the past. We will continue patient's metoprolol, Imdur, Plavix and Lipitor. (6) Iron deficiency anemia Assessment/Plan: Currently on ferrous gluconate 325 mg p.o. daily. (7) Hypothyroidism Assessment/Plan: On Synthroid 250 mcg p.o. daily AC - Current Meds Current Meds: Current Medications Generic Name Dose Route Start Last Admin Trade Name Freq PRN Reason Stop Dose Admin Albuterol/Ipratropium 3 ml 12/14/20 07:00 12/18/20 07:30 Ipratropium/Albuterol 3 Ml Neb INH 3 ml RTQID ELBA Administration Amlodipine Besylate 10 mg 12/14/20 09:00 12/18/20 08:36 Amlodipine 5 Mg Tablet PO 10 mg DAILY ELBA Administration Atorvastatin Calcium 10 mg 12/14/20 03:00 12/17/20 21:04 Atorvastatin 10 Mg Tablet PO 10 mg QPM ELBA Administration Clopidogrel Bisulfate 75 mg 12/14/20 09:00 12/18/20 08:37 Clopidogrel 75 Mg Tablet PO 75 mg DAILY ELBA Administration Enoxaparin Sodium 40 mg 12/14/20 09:00 12/18/20 08:35 Enoxaparin 40 Mg/0.4 Ml Syringe SUBQ 40 mg DAILY ELBA Administration Ferrous Gluconate 324 mg 12/14/20 14:00 12/18/20 08:37 Ferrous Gluconate 324 Mg Tablet PO 324 mg DAILYWM ELBA Administration Furosemide 40 mg 12/16/20 13:00 12/18/20 08:38 Furosemide 40 Mg/4 Ml Vial IVP Not Given BID [facility] Insulin Aspart 1 - 9 unit 12/14/20 21:00 12/18/20 08:35 Insulin Aspart 300 Unit/3 Ml Pen SUBQ Not Given 0800,1200,1700,2100 [facility] Protocol Insulin Glargine 10 unit 12/14/20 21:00 12/17/20 21:07 Insulin Glargine 300 Unit/3 Ml Pen SUBQ 10 unit QPM ELBA Administration Isosorbide Mononitrate 60 mg 12/14/20 09:00 12/18/20 08:37 Isosorbide Mononitrate Er 30 Mg Tablet PO 60 mg DAILY ELBA Administration Levothyroxine Sodium 250 mcg 12/14/20 07:15 12/18/20 06:28 Levothyroxine 125 Mcg Tablet PO 250 mcg QDAC [facility] Administration Magnesium Oxide 400 mg 12/14/20 17:00 12/17/20 12:02 Magnesium Oxide 400 Mg Tablet PO 400 mg 1200 [facility] Administration Metoprolol Succinate 25 mg 12/14/20 09:00 12/18/20 08:37 Metoprolol Succinate 25 Mg Tablet PO 25 mg DAILY ELBA Administration Ondansetron HCl 4 mg 12/14/20 01:59 12/15/20 17:57 Ondansetron Odt 4 Mg Tablet TL 4 mg Q6HR PRN Administration Nausea / Vomiting Dronedarone Hcl [ 1 each 12/15/20 13:00 12/18/20 08:39 Multaq] 400 Mg PO 1 each Tablet BID ELBA Administration Sodium Chloride 10 ml 12/14/20 09:00 12/18/20 08:38 Sodium Chloride Flush 0.9% 10 Ml Syringe IVP Not Given 0100,0900,1700 [facility] Tramadol HCl 50 mg 12/14/20 20:43 12/18/20 08:37 Tramadol 50 Mg Tablet PO 50 mg BID PRN Administration PAIN - Lab Result Fish Bone Diagrams: 12/18/20 05:57 12/18/20 05:57 - Additional Planning My Orders: My Active Orders 12/17/20 12:51 Discharge [RC] .ONCE Initiate Discharge Checklist [RC] .ONCE 12/18/20 07:32 Oxygen Desat. Study w/Exercise [RC] .ONCE Subjective - Subjective Patient Reports: Other (She was resting comfortably in bed at time of exam eating breakfast. Repeat chest x-ray this morning showed pulmonary edema pattern with small pleural effusions. O2 sats is between 93 and 98% on 4 L at rest but drops precipitously with activity.) Objective Vital Signs: Vital Signs - 24 hr 12/17/20 12/17/20 12/17/20 12:05 14:49 16:02 Temperature 36.6 C Heart Rate 72 Heart Rate [ 73 72 Brachial] Respiratory 18 24 18 Rate Blood Pressure 111/55 L 118/55 L [Right Brachial artery] O2 Saturation 93 95 12/17/20 12/17/20 12/18/20 16:33 18:22 00:57 Temperature 36.6 C 36.6 C Heart Rate 65 Heart Rate [ 68 70 Brachial] Respiratory 20 20 20 Rate Blood Pressure 129/52 L 148/54 H [Right Brachial artery] O2 Saturation 93 93 12/18/20 12/18/20 07:32 08:07 Temperature 36.6 C Heart Rate 70 Heart Rate [ 70 Brachial] Respiratory 16 20 Rate Blood Pressure 138/51 H [Right Brachial artery] O2 Saturation 97 Oxygen O2 Source Nasal cannula Oxygen Flow Rate 5 I&O (Last 24 Hrs): Intake and Output Totals x24h 12/16/20 12/17/20 12/18/20 23:59 23:59 23:59 Intake Total 920 660 200 Output Total 2225 1800 200 Balance -1305 -1140 0 General: Alert, Oriented x3, No acute distress HEENT: PERRLA, EOMI Neck: Supple, No JVD Neuro: Alert, Oriented Times 3 Cardiovascular: Regular rate Respiratory: Chest non-tender, Other (Mild crackles at baseline bilaterally. Improved from previous days) Abdomen: Normal bowel sounds, Soft, No tenderness, No masses Extremities: Other (Trace to +1 edema bilaterally) Skin: No rashes, No breakdown, No significant lesion - Results Results: Laboratory Results WBC 11.5 x10^3/uL (4.8-10.8) H 12/18/20 05:57 RBC 3.84 10^6/uL (4.20-5.40) L 12/18/20 05:57 Hgb 9.8 g/dL (12.0-16.0) L 12/18/20 05:57 Hct 33.9 % (37.0-47.0) L 12/18/20 05:57 MCV 88.3 fL (81.0-99.0) 12/18/20 05:57 MCH 25.5 pg (27.0-31.0) L 12/18/20 05:57 MCHC 28.9 g/dL (32.0-36.0) L 12/18/20 05:57 RDW 17.9 % (12.0-15.0) H 12/18/20 05:57 Plt Count 324 10^3/uL (130-450) 12/18/20 05:57 MPV 10.1 fL (7.9-10.8) 12/18/20 05:57 Neut # (Auto) 8.0 10^3/uL (1.5-6.6) H 12/18/20 05:57 Lymph # (Auto) 1.8 10^3/uL (1.5-3.5) 12/18/20 05:57 [place] # (Auto) 1.0 10^3/uL (0.0-1.0) 12/18/20 05:57 Eos # (Auto) 0.5 10^3/uL (0.0-0.7) 12/18/20 05:57 Baso # (Auto) 0.1 10^3/uL (0.0-0.1) 12/18/20 05:57 Absolute Nucleated RBC 0.02 x10^3/uL 12/18/20 05:57 Nucleated RBC % 0.2 /100WBC 12/18/20 05:57 Manual Slide Review Indicated 12/18/20 05:57 Platelet Estimate NORMAL (130-450,000) (NORMAL) 12/18/20 05:57 RBC Morph Micro Appear 2+ HYPOCHROMASIA (NORMAL) 1+ POLYCHROMASIA (NORMAL) 12/18/20 05:57 RBC Morph Micro Appear 2+ HYPOCHROMASIA (NORMAL) 1+ POLYCHROMASIA (NORMAL) 12/18/20 05:57 Bld Gas Analysis Time 0957 12/17/20 09:57 Sample Site RIGHT RADIAL 12/17/20 09:57 ABG pH 7.50 (7.35-7.45) H 12/17/20 09:57 ABG pCO2 49 mmHg (34-45) H 12/17/20 09:57 ABG pO2 65 mmHg (80-100) L 12/17/20 09:57 ABG HCO3 37.6 mmol/L (22.0-26.0) H 12/17/20 09:57 ABG Total CO2 39.1 MMOL/L (21.0-29.0) H* 12/17/20 09:57 ABG O2 Saturation 93 % (94-98) L 12/17/20 09:57 ABG Base Excess 12.8 mmol/L (-2.0-3.0) H 12/17/20 09:57 Renan Test POSITIVE 12/17/20 09:57 O2 Delivery Device NASAL CANNULA 12/17/20 09:57 O2 Liters/Min 4.00 LPM 12/17/20 09:57 Sodium 134 mmol/L (135-145) L 12/18/20 05:57 Potassium 3.5 mmol/L (3.5-5.0) 12/18/20 05:57 Chloride 85 mmol/L (101-111) L 12/18/20 05:57 Carbon Dioxide 39 mmol/L (21-32) H* 12/18/20 05:57 Anion Gap 10.0 (6-13) 12/18/20 05:57 BUN 16 mg/dL (6-20) 12/18/20 05:57 Creatinine 0.6 mg/dL (0.4-1.0) 12/18/20 05:57 Estimated GFR (MDRD) 95 (>89) 12/18/20 05:57 Glucose 118 mg/dL (70-100) H 12/18/20 05:57 POC Whole Bld Glucose 106 mg/dL (70 - 100) H 12/18/20 07:42 Estimat Average Glucose 151 mg/dL (70-100) H 12/15/20 05:35 Hemoglobin A1c % 6.9 % (4.27-6.07) H 12/15/20 05:35 Lactic Acid 0.9 mmol/L (0.5-2.2) 12/14/20 00:15 Calcium 8.4 mg/dL (8.5-10.3) L 12/18/20 05:57 Magnesium 1.9 mg/dL (1.7-2.8) 12/18/20 05:57 Iron 19 ug/dL (28-170) L 12/14/20 07:31 TIBC 361 ug/dL (250-450) 12/14/20 07:31 % Saturation 5 % (20-50) L 12/14/20 07:31 Transferrin 258 mg/dL (192-382) 12/14/20 07:31 Ferritin 82.9 ng/mL (11.0-306.8) 12/14/20 07:31 Troponin I High Sens 6.9 ng/L (2.3-14.8) 12/13/20 22:33 B-Natriuretic Peptide 147 pg/mL (5-100) H 12/13/20 22:33 Nasal Adenovirus (PCR) NOT DETECTED 12/13/20 22:33 Nasal B. parapertussis DNA (PCR) NOT DETECTED 12/13/20 22:33 Nasal Coronavir 229E PCR NOT DETECTED 12/13/20 22:33 Nasal Coronavir HKU1 PCR NOT DETECTED 12/13/20 22:33 Nasal Coronavir NL63 PCR NOT DETECTED 12/13/20 22:33 Nasal Coronavir OC43 PCR NOT DETECTED 12/13/20 22:33 Nasal Enterovir/Rhinovir PCR NOT DETECTED 12/13/20 22:33 Nasal Influenza B PCR NOT DETECTED 12/13/20 22:33 Nasal Influenza A PCR NOT DETECTED 12/13/20 22:33 Nasal Parainfluen 1 PCR NOT DETECTED 12/13/20 22:33 Nasal Parainfluen 2 PCR NOT DETECTED 12/13/20 22:33 Nasal Parainfluen 3 PCR NOT DETECTED 12/13/20 22:33 Nasal Parainfluen 4 PCR NOT DETECTED 12/13/20 22:33 Nasal RSV (PCR) NOT DETECTED 12/13/20 22:33 Nasal B.pertussis DNA PCR NOT DETECTED 12/13/20 22:33 Nasal C.pneumoniae (PCR) NOT DETECTED 12/13/20 22:33 Yaakov Human Metapneumo PCR NOT DETECTED 12/13/20 22:33 Nasal M.pneumoniae (PCR) NOT DETECTED 12/13/20 22:33 Nasal SARS-CoV-2 (PCR) NOT DETECTED 12/13/20 22:33 - Procedures Procedures: Procedures OPEN RED-INT FIX HUMERUS (09/25/14) REMOVAL OF INT FIX FROM L HUMERAL HEAD, OPEN APPROACH (01/08/15) REPOSITION LEFT SHOULDER JOINT, EXTERNAL APPROACH (01/08/15) TRANSFUSE NONAUT RED BLOOD CELLS IN PERIPH VEIN, PERC (11/21/15) ABX Reporting Has patient been on IV antibiotics over the past 48 hours?: No
[2020-12-18] MEDS: MAGNESIUM OXIDE 400 MG TABLET PO SCH (12:06)
[2020-12-18] MEDS: INSULIN GLARGINE 300 UNIT/3 ML PEN SUBQ SCH (21:00)
[2020-12-18] MEDS: ATORVASTATIN 10 MG TABLET PO SCH (21:04)
[2020-12-19] MEDS: SODIUM CHLORIDE FLUSH 0.9% 10 ML SYRINGE IVP SCH ×3 (05:56→16:54)
[2020-12-19] MEDS: LEVOTHYROXINE 125 MCG TABLET PO SCH (06:51)
[2020-12-19] MEDS: IPRATROPIUM/ALBUTEROL 3 ML NEB INH SCH ×4 (07:38→19:38)
[2020-12-19] MEDS: INSULIN ASPART 300 UNIT/3 ML PEN SUBQ SCH ×4 (07:45→20:37)
[2020-12-19] MEDS: METOPROLOL SUCCINATE 25 MG TABLET PO SCH (08:07)
[2020-12-19] MEDS: FERROUS GLUCONATE 324 MG TABLET PO SCH (08:07)
[2020-12-19] MEDS: ISOSORBIDE MONONITRATE ER 30 MG TABLET PO SCH (08:07)
[2020-12-19] MEDS: amLODIPine 5 MG TABLET PO SCH (08:07)
[2020-12-19] MEDS: CLOPIDOGREL 75 MG TABLET PO SCH (08:07)
[2020-12-19] MEDS: ENOXAPARIN 40 MG/0.4 ML SYRINGE SUBQ SCH (08:08)
[2020-12-19] MEDS: FUROSEMIDE 40 MG/4 ML VIAL IVP SCH ×2 (08:08→20:39)
--- NOTE | 2020-12-19 08:40 | PROVIDER PROGRESS NOTE ---
Assessment/Plan - Problem List (1) Acute on chronic respiratory failure with hypoxia Assessment/Plan: This is likely exacerbated by acute on chronic CHF. Oxygen saturation is between 93 and 98% on 4 L at rest. With standing oxygen is increased to 6 L. Her oxygen saturation with standing on 6 L is about 97%. This is likely exacerbated by acute on chronic CHF. Anticipating discharge on 12/21/20. (2) Acute on chronic diastolic CHF (congestive heart failure) Assessment/Plan: This is likely exacerbated by acute on chronic CHF. Repeat CXR on 12/18/20 showed pulmonary edema pattern Continue Lasix 40 mg IV twice daily. Reassess tomorrow. Continue metoprolol succinate 25 mg p.o. daily. We will continue to monitor I's and O's and daily weights. 2D echocardiogram done on 12/14/2020 showed preserved ejection fraction at 70 to 75%. RVSP at rest is 70 mmHg. There is moderate to severe left atrial volume index. Mild ventricular enlargement with normal right ventricular systolic function. (3) COPD (chronic obstructive pulmonary disease) Assessment/Plan: Not in exacerbation. Continue home pulmonary regimen. (5) CAD (coronary artery disease) Assessment/Plan: Patient has history of coronary disease with CABG in the past. We will continue patient's metoprolol, Imdur, Plavix and Lipitor. (6) Iron deficiency anemia Assessment/Plan: Currently on ferrous gluconate 325 mg p.o. daily. (7) Hypothyroidism Assessment/Plan: On Synthroid 250 mcg p.o. daily AC - Current Meds Current Meds: Current Medications Generic Name Dose Route Start Last Admin Trade Name Freq PRN Reason Stop Dose Admin Albuterol/Ipratropium 3 ml 12/14/20 07:00 12/19/20 07:38 Ipratropium/Albuterol 3 Ml Neb INH 3 ml RTQID ELBA Administration Amlodipine Besylate 10 mg 12/14/20 09:00 12/19/20 08:07 Amlodipine 5 Mg Tablet PO 10 mg DAILY ELBA Administration Atorvastatin Calcium 10 mg 12/14/20 03:00 12/18/20 21:04 Atorvastatin 10 Mg Tablet PO 10 mg QPM ELBA Administration Clopidogrel Bisulfate 75 mg 12/14/20 09:00 12/19/20 08:07 Clopidogrel 75 Mg Tablet PO 75 mg DAILY ELBA Administration Enoxaparin Sodium 40 mg 12/14/20 09:00 12/19/20 08:08 Enoxaparin 40 Mg/0.4 Ml Syringe SUBQ 40 mg DAILY ELBA Administration Ferrous Gluconate 324 mg 12/14/20 14:00 12/19/20 08:07 Ferrous Gluconate 324 Mg Tablet PO 324 mg DAILYWM ELBA Administration Furosemide 40 mg 12/16/20 13:00 12/19/20 08:08 Furosemide 40 Mg/4 Ml Vial IVP 40 mg BID ELBA Administration Insulin Aspart 1 - 9 unit 12/14/20 21:00 12/19/20 07:45 Insulin Aspart 300 Unit/3 Ml Pen SUBQ Not Given 0800,1200,1700,2100 [facility] Protocol Insulin Glargine 10 unit 12/14/20 21:00 12/18/20 21:00 Insulin Glargine 300 Unit/3 Ml Pen SUBQ 10 unit QPM ELBA Administration Isosorbide Mononitrate 60 mg 12/14/20 09:00 12/19/20 08:07 Isosorbide Mononitrate Er 30 Mg Tablet PO 60 mg DAILY ELBA Administration Levothyroxine Sodium 250 mcg 12/14/20 07:15 12/19/20 06:51 Levothyroxine 125 Mcg Tablet PO 250 mcg QDAC ELBA Administration Magnesium Oxide 400 mg 12/14/20 17:00 12/18/20 12:06 Magnesium Oxide 400 Mg Tablet PO 400 mg 1200 ELBA Administration Metoprolol Succinate 25 mg 12/14/20 09:00 12/19/20 08:07 Metoprolol Succinate 25 Mg Tablet PO 25 mg DAILY ELBA Administration Ondansetron HCl 4 mg 12/14/20 01:59 12/15/20 17:57 Ondansetron Odt 4 Mg Tablet TL 4 mg Q6HR PRN Administration Nausea / Vomiting Dronedarone Hcl [ 1 each 12/15/20 13:00 12/18/20 21:03 Multaq] 400 Mg PO 1 each Tablet BID ELBA Administration Sodium Chloride 10 ml 12/14/20 09:00 12/19/20 08:08 Sodium Chloride Flush 0.9% 10 Ml Syringe IVP 10 ml 0100,0900,1700 ELBA Administration Tramadol HCl 50 mg 12/14/20 20:43 12/18/20 21:03 Tramadol 50 Mg Tablet PO 50 mg BID PRN Administration PAIN - Lab Result Fish Bone Diagrams: 12/19/20 08:52 12/19/20 08:52 - Additional Planning My Orders: My Active Orders 12/19/20 08:39 BMP - BASIC METABOLIC PANEL [CHEM] Routine CBC - COMP BLD CT W/AUTO DIFF [HEME] Routine 12/20/20 05:00 BMP - BASIC METABOLIC PANEL [CHEM] DAILYLAB CBC - COMP BLD CT W/AUTO DIFF [HEME] DAILYLAB 12/21/20 05:00 BMP - BASIC METABOLIC PANEL [CHEM] DAILYLAB CBC - COMP BLD CT W/AUTO DIFF [HEME] DAILYLAB 12/22/20 05:00 BMP - BASIC METABOLIC PANEL [CHEM] DAILYLAB CBC - COMP BLD CT W/AUTO DIFF [HEME] DAILYLAB 12/23/20 05:00 BMP - BASIC METABOLIC PANEL [CHEM] DAILYLAB CBC - COMP BLD CT W/AUTO DIFF [HEME] DAILYLAB 12/24/20 05:00 BMP - BASIC METABOLIC PANEL [CHEM] DAILYLAB CBC - COMP BLD CT W/AUTO DIFF [HEME] DAILYLAB Subjective - Subjective Patient Reports: Other (Patient was working with physical therapy at the time of the visit. She was standing using a walker. Oxygen has been increased to 6 L. While standing oxygen saturation was 97 to 99%. She denies any complaints.) Objective Vital Signs: Vital Signs - 24 hr 12/18/20 12/18/20 12/18/20 12:00 12:31 16:15 Temperature 36.6 C Heart Rate 70 Heart Rate [ 72 71 Brachial] Respiratory 20 20 20 Rate Blood Pressure 112/46 L 132/44 H [Right Brachial artery] O2 Saturation 95 95 12/18/20 12/18/20 12/19/20 16:17 20:00 00:30 Temperature 36.6 C Heart Rate 70 70 Heart Rate [ 70 Brachial] Respiratory 16 16 21 Rate Blood Pressure 130/49 L [Right Brachial artery] O2 Saturation 97 12/19/20 12/19/20 07:39 08:06 Temperature 36.5 C Heart Rate 70 Heart Rate [ 70 Brachial] Respiratory 18 22 Rate Blood Pressure 141/54 H [Right Brachial artery] O2 Saturation 94 Oxygen O2 Source Nasal cannula Oxygen Flow Rate 5 I&O (Last 24 Hrs): Intake and Output Totals x24h 12/17/20 12/18/20 12/19/20 23:59 23:59 23:59 Intake Total 660 750 Output Total 1800 1200 600 Balance -1140 -450 -600 Comments/Notes: General: Alert, Oriented x3, No acute distress HEENT: PERRLA, EOMI Neck: Supple, No JVD Neuro: Alert, Oriented Times 3 Cardiovascular: Regular rate Respiratory: Chest non-tender, Other (Mild crackles at baseline bilaterally. Improved from previous days) Abdomen: Normal bowel sounds, Soft, No tenderness, No masses Extremities: Other (Trace to +1 edema bilaterally) Skin: No rashes, No breakdown, No significant lesion - Results Results: Laboratory Results WBC 11.5 x10^3/uL (4.8-10.8) H 12/18/20 05:57 RBC 3.84 10^6/uL (4.20-5.40) L 12/18/20 05:57 Hgb 9.8 g/dL (12.0-16.0) L 12/18/20 05:57 Hct 33.9 % (37.0-47.0) L 12/18/20 05:57 MCV 88.3 fL (81.0-99.0) 12/18/20 05:57 MCH 25.5 pg (27.0-31.0) L 12/18/20 05:57 MCHC 28.9 g/dL (32.0-36.0) L 12/18/20 05:57 RDW 17.9 % (12.0-15.0) H 12/18/20 05:57 Plt Count 324 10^3/uL (130-450) 12/18/20 05:57 MPV 10.1 fL (7.9-10.8) 12/18/20 05:57 Neut # (Auto) 8.0 10^3/uL (1.5-6.6) H 12/18/20 05:57 Lymph # (Auto) 1.8 10^3/uL (1.5-3.5) 12/18/20 05:57 Villalba # (Auto) 1.0 10^3/uL (0.0-1.0) 12/18/20 05:57 Eos # (Auto) 0.5 10^3/uL (0.0-0.7) 12/18/20 05:57 Baso # (Auto) 0.1 10^3/uL (0.0-0.1) 12/18/20 05:57 Absolute Nucleated RBC 0.02 x10^3/uL 12/18/20 05:57 Nucleated RBC % 0.2 /100WBC 12/18/20 05:57 Manual Slide Review Indicated 12/18/20 05:57 Platelet Estimate NORMAL (130-450,000) (NORMAL) 12/18/20 05:57 RBC Morph Micro Appear 2+ HYPOCHROMASIA (NORMAL) 1+ POLYCHROMASIA (NORMAL) 12/18/20 05:57 RBC Morph Micro Appear 2+ HYPOCHROMASIA (NORMAL) 1+ POLYCHROMASIA (NORMAL) 12/18/20 05:57 Bld Gas Analysis Time 0912/17/20 09:57 Sample Site RIGHT RADIAL 12/17/20 09:57 ABG pH 7.50 (7.35-7.45) H 12/17/20 09:57 ABG pCO2 49 mmHg (34-45) H 12/17/20 09:57 ABG pO2 65 mmHg (80-100) L 12/17/20 09:57 ABG HCO3 37.6 mmol/L (22.0-26.0) H 12/17/20 09:57 ABG Total CO2 39.1 MMOL/L (21.0-29.0) H* 12/17/20 09:57 ABG O2 Saturation 93 % (94-98) L 12/17/20 09:57 ABG Base Excess 12.8 mmol/L (-2.0-3.0) H 12/17/20 09:57 Renan Test POSITIVE 12/17/20 09:57 O2 Delivery Device NASAL CANNULA 12/17/20 09:57 O2 Liters/Min 4.00 LPM 12/17/20 09:57 Sodium 134 mmol/L (135-145) L 12/18/20 05:57 Potassium 3.5 mmol/L (3.5-5.0) 12/18/20 05:57 Chloride 85 mmol/L (101-111) L 12/18/20 05:57 Carbon Dioxide 39 mmol/L (21-32) H* 12/18/20 05:57 Anion Gap 10.0 (6-13) 12/18/20 05:57 BUN 16 mg/dL (6-20) 12/18/20 05:57 Creatinine 0.6 mg/dL (0.4-1.0) 12/18/20 05:57 Estimated GFR (MDRD) 95 (>89) 12/18/20 05:57 Glucose 118 mg/dL (70-100) H 12/18/20 05:57 POC Whole Bld Glucose 103 mg/dL (70 - 100) H 12/19/20 07:32 Estimat Average Glucose 151 mg/dL (70-100) H 12/15/20 05:35 Hemoglobin A1c % 6.9 % (4.27-6.07) H 12/15/20 05:35 Lactic Acid 0.9 mmol/L (0.5-2.2) 12/14/20 00:15 Calcium 8.4 mg/dL (8.5-10.3) L 12/18/20 05:57 Magnesium 1.9 mg/dL (1.7-2.8) 12/18/20 05:57 Iron 19 ug/dL (28-170) L 12/14/20 07:31 TIBC 361 ug/dL (250-450) 12/14/20 07:31 % Saturation 5 % (20-50) L 12/14/20 07:31 Transferrin 258 mg/dL (192-382) 12/14/20 07:31 Ferritin 82.9 ng/mL (11.0-306.8) 12/14/20 07:31 Troponin I High Sens 6.9 ng/L (2.3-14.8) 12/13/20 22:33 B-Natriuretic Peptide 147 pg/mL (5-100) H 12/13/20 22:33 Nasal Adenovirus (PCR) NOT DETECTED 12/13/20 22:33 Nasal B. parapertussis DNA (PCR) NOT DETECTED 12/13/20 22:33 Nasal Coronavir 229E PCR NOT DETECTED 12/13/20 22:33 Nasal Coronavir HKU1 PCR NOT DETECTED 12/13/20 22:33 Nasal Coronavir NL63 PCR NOT DETECTED 12/13/20 22:33 Nasal Coronavir OC43 PCR NOT DETECTED 12/13/20 22:33 Nasal Enterovir/Rhinovir PCR NOT DETECTED 12/13/20 22:33 Nasal Influenza B PCR NOT DETECTED 12/13/20 22:33 Nasal Influenza A PCR NOT DETECTED 12/13/20 22:33 Nasal Parainfluen 1 PCR NOT DETECTED 12/13/20 22:33 Nasal Parainfluen 2 PCR NOT DETECTED 12/13/20 22:33 Nasal Parainfluen 3 PCR NOT DETECTED 12/13/20 22:33 Nasal Parainfluen 4 PCR NOT DETECTED 12/13/20 22:33 Nasal RSV (PCR) NOT DETECTED 12/13/20 22:33 Nasal B.pertussis DNA PCR NOT DETECTED 12/13/20 22:33 Nasal C.pneumoniae (PCR) NOT DETECTED 12/13/20 22:33 Yaakov Human Metapneumo PCR NOT DETECTED 12/13/20 22:33 Nasal M.pneumoniae (PCR) NOT DETECTED 12/13/20 22:33 Nasal SARS-CoV-2 (PCR) NOT DETECTED 12/13/20 22:33 - Procedures Procedures: Procedures OPEN RED-INT FIX HUMERUS (09/25/14) REMOVAL OF INT FIX FROM L HUMERAL HEAD, OPEN APPROACH (01/08/15) REPOSITION LEFT SHOULDER JOINT, EXTERNAL APPROACH (01/08/15) TRANSFUSE NONAUT RED BLOOD CELLS IN PERIPH VEIN, PERC (11/21/15) ABX Reporting Has patient been on IV antibiotics over the past 48 hours?: No
[2020-12-19 08:57] LABS: BASOPHILS # (AUTO) 0.1 10^3/uL (0.0-0.1); BASOPHILS % (AUTO) 0.6 %; EOSINOPHILS # (AUTO) 0.4 10^3/uL (0.0-0.7); HCT - HEMATOCRIT 35.8 % (37.0-47.0); HGB - HEMOGLOBIN 10.3 g/dL (12.0-16.0); LYMPHOCYTES # (AUTO) 1.9 10^3/uL (1.5-3.5); MEAN CORPUSCULAR HEMOGLOBIN 25.7 pg (27.0-31.0); MEAN CORPUSCULAR HGB CONC 28.8 g/dL (32.0-36.0); MEAN CORPUSCULAR VOLUME 89.3 fL (81.0-99.0); MEAN PLATELET VOLUME 10.8 fL (7.9-10.8); MONOCYTES % (AUTO) 7.5 %; NEUTROPHILS # (AUTO) 10.2 10^3/uL (1.5-6.6); NRBC ABSOLUTE COUNT (AUTO) 0.03 x10^3/uL; NUCLEATED RED BLOOD CELLS AUTO 0.2 /100WBC; PLT - PLATELET COUNT 355 10^3/uL (130-450); RED BLOOD COUNT 4.01 10^6/uL (4.20-5.40); RED CELL DISTRIBUTION WIDTH 18.1 % (12.0-15.0); WHITE BLOOD COUNT 13.8 x10^3/uL (4.8-10.8)
[2020-12-19 09:01] LABS: SLIDE REVIEW? Indicated
[2020-12-19 09:05] LABS: CALCIUM 8.8 mg/dL (8.5-10.3); CREATININE 0.7 mg/dL (0.4-1.0); POTASSIUM 3.5 mmol/L (3.5-5.0)
[2020-12-19 09:10] LABS: PLATELET ESTIMATE, MANUAL NORMAL (130-450,000) (NORMAL); PLATELET MORPHOLOGY NORMAL APPEARANCE (NORMAL); WBC MORPHOLOGY (MULTIPLE) A (NORMAL)
[2020-12-19] MEDS: DRONEDARONE HCL 400 MG PO SCH ×2 (09:34→20:43)
[2020-12-19] MEDS: MAGNESIUM OXIDE 400 MG TABLET PO SCH (12:15)
[2020-12-19] MEDS: SODIUM CHLORIDE FLUSH 0.9% 10 ML SYRINGE IVP PRN (15:07)
[2020-12-19] MEDS: cefTRIAXone 1 GM in SODIUM CHLORIDE 0.9% MINIBAG 100 ML IV SCH (15:09)
[2020-12-19] MEDS: AZITHROMYCIN INJ 500 MG in SODIUM CHLORIDE 0.9% 250 ML IV SCH (15:50)
[2020-12-19] MEDS: INSULIN GLARGINE 300 UNIT/3 ML PEN SUBQ SCH (20:38)
[2020-12-19] MEDS: traMADol 50 MG TABLET PO PRN (20:39)
[2020-12-19] MEDS: ATORVASTATIN 10 MG TABLET PO SCH (20:39)
[2020-12-20] MEDS: SODIUM CHLORIDE FLUSH 0.9% 10 ML SYRINGE IVP SCH ×2 (00:02→08:50)
[2020-12-20] MEDS: LEVOTHYROXINE 125 MCG TABLET PO SCH (06:20)
[2020-12-20 06:33] LABS: BASOPHILS # (AUTO) 0.1 10^3/uL (0.0-0.1); BASOPHILS % (AUTO) 0.5 %; EOSINOPHILS # (AUTO) 0.4 10^3/uL (0.0-0.7); EOSINOPHILS % (AUTO) 3.9 %; HCT - HEMATOCRIT 36.3 % (37.0-47.0); HGB - HEMOGLOBIN 10.5 g/dL (12.0-16.0); LYMPHOCYTES # (AUTO) 1.5 10^3/uL (1.5-3.5); LYMPHOCYTES % (AUTO) 13.2 %; MEAN CORPUSCULAR HEMOGLOBIN 25.6 pg (27.0-31.0); MEAN CORPUSCULAR HGB CONC 28.9 g/dL (32.0-36.0); MEAN CORPUSCULAR VOLUME 88.5 fL (81.0-99.0); MEAN PLATELET VOLUME 10.3 fL (7.9-10.8); NEUTROPHILS # (AUTO) 8.2 10^3/uL (1.5-6.6); NEUTROPHILS % (AUTO) 72.7 %; PLT - PLATELET COUNT 328 10^3/uL (130-450); WHITE BLOOD COUNT 11.2 x10^3/uL (4.8-10.8)
[2020-12-20 06:42] LABS: SLIDE REVIEW? Indicated
[2020-12-20 06:54] LABS: CALCIUM 8.6 mg/dL (8.5-10.3); CREATININE 0.6 mg/dL (0.4-1.0); POTASSIUM 3.5 mmol/L (3.5-5.0)
[2020-12-20] MEDS: IPRATROPIUM/ALBUTEROL 3 ML NEB INH SCH ×2 (07:57→11:22)
--- NOTE | 2020-12-20 08:00 | XRAY Report ---
PROCEDURE: Chest 1 View X-Ray INDICATIONS: dyspnea, hypoxia TECHNIQUE: One view of the chest was acquired. COMPARISON: 12/18/2020 FINDINGS: Surgical changes and devices: Status post median sternotomy and left chest wall pacer placement. Lungs and pleura: Prominence of the interstitial markings consistent with pulmonary edema is unchang ed. No pneumothorax. Blunting of the costophrenic angles is compatible with small pleural effusions . Mediastinum: Mediastinal contours appear normal. Heart size is enlarged. Bones and chest wall: No suspicious bony lesions. Overlying soft tissues appear unremarkable. IMPRESSION: Pulmonary edema, unchanged. Reviewed by: Devan Dueñas on 12/20/2020 7:58 AM PDT Approved by: Devan Dueñas on 12/20/2020 7:58 AM PDT Station ID: [id number]
[2020-12-20] MEDS: FERROUS GLUCONATE 324 MG TABLET PO SCH (08:43)
[2020-12-20] MEDS: CLOPIDOGREL 75 MG TABLET PO SCH (08:44)
[2020-12-20] MEDS: ISOSORBIDE MONONITRATE ER 30 MG TABLET PO SCH (08:44)
[2020-12-20] MEDS: amLODIPine 5 MG TABLET PO SCH (08:45)
[2020-12-20] MEDS: METOPROLOL SUCCINATE 25 MG TABLET PO SCH (08:45)
[2020-12-20] MEDS: traMADol 50 MG TABLET PO PRN (08:50)
[2020-12-20] MEDS: ENOXAPARIN 40 MG/0.4 ML SYRINGE SUBQ SCH (08:51)
[2020-12-20] MEDS: DRONEDARONE HCL 400 MG PO SCH (08:52)
[2020-12-20] MEDS: AZITHROMYCIN INJ 500 MG in SODIUM CHLORIDE 0.9% 250 ML IV SCH (08:53)
[2020-12-20] MEDS: INSULIN ASPART 300 UNIT/3 ML PEN SUBQ SCH ×2 (09:02→12:02)
--- NOTE | 2020-12-20 09:18 | DISCHARGE SUMMARY ---
Discharge Summary Admit Date: 12/14/20 Discharge Date: 12/20/20 Discharging Provider: Nilesh Blanco Primary Care Provider: Ting Fabian Code Status: Do Not Attempt Resuscitation Condition at Discharge: Stable Discharge Disposition: 06 Home Health Service - DIAGNOSES Admission Diagnoses: Respiratory failure with hypoxia Acute on chronic diastolic CHF COPD PVD Coronary disease Iron deficiency anemia Hypothyroidism Discharge Diagnoses with Status of Each Condition: Acute on Chronic Respiratory failure with hypoxia: Improved Acute on chronic diastolic CHF: Improved with diuresis COPD: At baseline. Continue supplemental Oxygen. 4L at rest and 6L with standing/ activity PVD: Chronic. Continue home medication Coronary artery disease: Chronic. Continue home medication Iron deficiency anemia: Supplemental iron Hypothyroidism: Chronic. Continue home medication - HPI History of Present Illness: Per HPI: This is a 85-year-old female with a past medical history significant for COPD on 4 L of oxygen, coronary artery disease, peripheral vascular disease, paroxysmal atrial fibrillation status post pacemaker, hypertension, iron deficiency anemia, hypothyroidism who presents today complaining of dyspnea. She states she has been short of breath since September 27. At that time, she was reportedly hospitalized at [facility] for pneumonia. She states she did well after that till earlier this month when she had anemia secondary to a GI bleed. She was transferred to [facility] in [place] where she states they believe the bleeding may have been due to her recent vascular surgery. She states she underwent an endoscopy which showed an ulcer that was not bleeding but there was another source of her GI bleed but she cannot recall what it was. She states she never required a blood transfusion. She felt okay on discharge but she returns today complaining of worsening shortness of breath again. She states she has a nonproductive cough and complains of orthopnea. She reports no fevers or chills. Denies chest pain. She has no abdominal pain, nausea, vomiting. Re ports no dysuria, urgency, frequency. She states she is still taking Plavix and aspirin. She has not noticed any bleeding. She denies bloody stools or dark tarry stools and hematuria. She reports she is normally on 4 L of oxygen at baseline for her COPD and this was recently increased after her most recent discharge from [facility] in [place]. She was previously on 2 to 3 L of oxygen. She reports no wheezing and is compliant with her inhalers. She denies any weight gain or weight loss but does report a poor appetite over the last few weeks. In the emergency department, she is noted to be hypoxic requiring 5 to 6 L of oxygen to maintain saturation greater than 88%. Labs revealed a white count of 14.8 and a hemoglobin of 9.5. Her sodium was 131 and potassium 3.4. Troponin and lactic acid are within normal limits. Her BNP was 147. Chest x-ray was concerning for pulmonary vascular congestion. Initial EKG has significant artifact. Repeat EKG revealed a paced rhythm. She was given multiple breathing treatments and a dose of IV Lasix without improvement in her hypoxia. Given this, medicine was consulted for admission. We discussed goals of care and I confirmed with her that she is a DNR which is evident on her POLST. - HOSPITAL COURSE Hospital Course: Hospital Course: Patient was started on Lasix 40 mg IV daily with daily weights and monitoring of I's and O's. She had a 2D echocardiogram done on 12/14/2020 which showed a preserved ejection fraction of 77 5%. RVSP at rest is 70 mmHg. There was moderate to severe left atrial volume index. Mild ventricular enlargement with normal right ventricular systolic function. Her home dose metoprolol succinate 25 mg p.o. daily was continued. On 12/16/2020 Lasix dose was increased to 40 mg IV twice daily. This resulted in further diuresis. The patient was going to be discharged on 12/17/2020. However shortly before discharge she complained of dizziness and feeling like she was not ready to go home. An attempt to ambulate her resulted in a precipitous drop of her oxygen saturation to 79% on 4 L. As a result the plan to discharge was canceled. Diuresis with Lasix 40 mg IV twice daily was continued for 2 more days. Over which she continues to feel better clinically. On 12/20/2020 she was discharged with instructions to take Lasix 40 mg p.o. twice daily x7 days after which she would resume her home dose of Lasix 40 mg p.o. daily. She was advised to limit her salt intake. She was advised to follow-up with her primary care physician after the 7 days of lasix 40mg bid Due to white blood cell count of 13.5 and some consolidation on chest x-ray she was started on Rocephin and azithromycin. She received azithromycin 500 mg IV daily x2 days. She was discharged with a prescription of 500 mg of azithromycin x1 to take on 12/21/2020. This would have completed Z-Sami dose.. - ALLERGIES Allergies/Adverse Reactions: Allergies Allergy/AdvReac Type Severity Reaction Status Date / Time hydrochlorothiazide Allergy Severe Anaphylaxis Verified 12/13/20 22:23 sulfamethoxazole Allergy Severe Anaphylaxis Verified 12/13/20 22:23 [From ] trimethoprim [From ] Allergy Severe Anaphylaxis Verified 12/13/20 22:23 amlodipine AdvReac Severe Swelling Verified 12/13/20 22:23 to ankles and feeet atenolol AdvReac Severe Bradycardia Verified 12/13/20 22:23 Penicillins AdvReac Severe Anxiety/Swelling Verified 12/13/20 22:23 and redness at injection site - MEDICATIONS Home Medications: Ambulatory Orders Medication Instructions Recorded Confirmed Fluticasone [Flonase] 1 puffs NS BID 01/09/13 12/13/20 Olopatadine HCl [Patanol] 1 drop OP BID 01/09/13 12/13/20 traMADol [Ultram] 50 mg PO BID PRN 05/30/13 12/13/20 Dronedarone HCl [Multaq] 400 mg PO BID 01/07/15 12/13/20 Latanoprost [Xalatan] 1 drop OP DAILY 01/07/15 12/13/20 Fexofenadine HCl 180 mg PO DAILY 06/26/20 12/13/20 Losartan [Cozaar] 100 mg PO DAILY PM 06/26/20 12/13/20 Metoprolol Succinate [Toprol Xl] 25 mg PO DAILY 06/26/20 12/13/20 Albuterol 2.5 mg INH Q4H PRN 07/07/20 12/13/20 Atorvastatin [Lipitor] 10 mg PO DAILY PM 07/07/20 12/13/20 Isosorbide Mononitrate [Isosorbide 60 mg PO DAILY 07/07/20 12/13/20 Mononitrate ER] Levothyroxine Sodium [Synthroid] 250 mcg PO DAILY 07/07/20 12/13/20 amLODIPine [Norvasc] 10 mg PO DAILY 07/07/20 12/13/20 Acetaminophen [Tylenol] 650 mg PO Q6H PRN 10/10/20 12/13/20 Fluticasone/Salmeterol [Advair 1 each IH DAILY 10/10/20 12/13/20 250-50 Diskus] prednisoLONE 1% OPHTH DROPS [Pred 1 drops OPTH BID 10/10/20 12/13/20 Forte 1% Ophth Drops] Clopidogrel [Plavix] 75 mg PO DAILY 11/28/20 12/13/20 Furosemide [Lasix] 40 mg PO DAILY 12/15/20 12/13/20 Furosemide [Lasix] 40 mg PO QPM 5 Days #5 tablet 12/17/20 Azithromycin [Zithromax] 500 mg PO DAILY 1 Days #1 tablet 12/20/20 Furosemide [Lasix] 40 mg PO BID 7 Days #14 tablet 12/20/20 - PHYSICAL EXAM AT DISCHARGE General Appearance: positive: No acute distress, Alert Eyes Bilateral: positive: PERRL, EOMI ENT: positive: No signs of dehydration Neck: positive: No JVD, Trachea midline Respiratory: positive: No respiratory distress, Other (Mild wheeze) Cardiovascular: positive: Regular rate & rhythm Abdomen: positive: Non-tender, No organomegaly, Nml bowel sounds, No distention. negative: Guarding, Rebound Back: positive: Nml inspection Skin: positive: Color nml, No rash, Warm, Dry Extremities: positive: Non-tender, Full ROM, Pedal edema (trace to +1) Neurologic/Psychiatric: positive: Oriented x3, Mood/affect nml - LABS Result Diagrams: 12/20/20 06:26 12/20/20 06:26 - TIME SPENT Time Spent in Discharge (Minutes): 25
--- NOTE | 2020-12-20 09:22 | Discharge Plan ---
Discharge Plan Problem Reviewed?: Yes Disposition: 06 Home Health Service Condition: Stable Prescriptions: Furosemide [Lasix] 40 mg PO QPM 5 Days #5 tablet Furosemide [Lasix] 40 mg PO BID 7 Days #14 tablet Azithromycin [Zithromax] 500 mg PO DAILY 1 Days #1 tablet Activity Restrictions: Activity as Tolerated Health Concerns: You were admitted on 12/14/2020 with shortness of breath for which work-up indicated that you were in CHF exacerbation. Had significant lower extremity edema and crackles on auscultation of the lungs. At baseline you require 4 L of oxygen at home due to COPD. When you presented to the hospital your oxygen saturation was 88% even on 5 to 6 L. You were admitted and started on Lasix 40 mg IV. Your Lasix dose was doubled about 36 to 48 hours prior to discharge. You had significant diuresis which resulted in improvement in your oxygenation level. By the time of discharge you were back to your baseline 4 L of oxygen with an oxygen saturation between 95 and 98%. You are being discharged home in stable condition. Upon discharge home your Lasix dose of 40 mg p.o. daily will be increased to 40 mg p.o. twice daily for 5 days. After which you would resume your regular Lasix 40 mg p.o. daily. You have been advised to watch your salt intake. You may follow-up with your primary care physician as needed. The above plan was explained to you, you expressed understanding and are in agreement with the plan Plan of Treatment: You were admitted on 12/14/2020 with shortness of breath for which work-up indicated that you were in CHF exacerbation. Had significant lower extremity edema and crackles on auscultation of the lungs. At baseline you require 4 L of oxygen at home due to COPD. When you presented to the hospital your oxygen saturation was 88% even on 5 to 6 L. You were admitted and started on Lasix 40 mg IV. Your Lasix dose was doubled about 36 to 48 hours prior to discharge. You had significant diuresis which resulted in improvement in your oxygenation level. By the time of discharge you were back to your baseline 4 L of oxygen with an oxygen saturation between 95 and 98%. It was determined that with standing and activity you required 6 L of oxygen to maintain your oxygen in the 90s. You will continue to use 6 L of oxygen with standing and activity. You are being discharged home in stable condition. Upon discharge home your Lasix dose of 40 mg p.o. daily will be increased to 40 mg p.o. twice daily for 7 days. After which you would resume your regular Lasix 40 mg p.o. daily. You have been advised to watch your salt intake. You are to follow-up with your primary care physician as needed. The above plan was explained to you, you expressed understanding and are in agreement with the plan No Smoking: If you smoke, Please STOP! Call for help.
[2020-12-20] MEDS: cefTRIAXone 1 GM in SODIUM CHLORIDE 0.9% MINIBAG 100 ML IV SCH (10:56)
[2020-12-20] MEDS: SODIUM CHLORIDE FLUSH 0.9% 10 ML SYRINGE IVP PRN (12:01)
[2020-12-20] MEDS: FUROSEMIDE 40 MG/4 ML VIAL IVP SCH (12:01)
[2020-12-20] MEDS: MAGNESIUM OXIDE 400 MG TABLET PO SCH (12:12)
[2020-12-20 12:14] VITALS: BP 118/56
== END 2020-12-20 14:55 | disposition home health service (06) | DRG 189 ==
LOC: EDUNIT# → ED 22:11 → MS2 12-14 01:59 → OBSVTOIN 12-14 14:50
PROVIDERS: ADMIT Internal Medicine; ATTEND Internal Medicine
DX: J96.21 Acute and chronic respiratory failure with hypoxia (principal); I50.33 Acute on chronic diastolic (congestive) heart failure; Z99.81 Dependence on supplemental oxygen; J43.9 Emphysema, unspecified; E11.51 Type 2 diabetes mellitus with diabetic peripheral angiopathy without gangrene; Z95.1 Presence of aortocoronary bypass graft; I25.10 Atherosclerotic heart disease of native coronary artery without angina pectoris; D50.9 Iron deficiency anemia, unspecified; E03.9 Hypothyroidism, unspecified; I11.0 Hypertensive heart disease with heart failure; I48.0 Paroxysmal atrial fibrillation; Z79.02 Long term (current) use of antithrombotics/antiplatelets; K21.9 Gastro-esophageal reflux disease without esophagitis; Z66 Do not resuscitate; Z95.0 Presence of cardiac pacemaker; E78.00 Pure hypercholesterolemia, unspecified; Z95.5 Presence of coronary angioplasty implant and graft; I25.2 Old myocardial infarction; Z20.822 Contact with and (suspected) exposure to COVID-19; Z87.11 Personal history of peptic ulcer disease; G47.30 Sleep apnea, unspecified; Z79.899 Other long term (current) drug therapy
CPT/HCPCS: 36415; 36600; 71045; 71046; 80048; 82728; 82803; 83036; 83540; 83605; 83735; 83880; 84466; 84484; 85025; 87631; 93005; 93306; 94640; 96372; 96374; 96375; 96376; 97110; 97161; 97530; 99284; 99285; A9270; G0378; J1650; J1815; Q0162; 0202U; 94761

== ENCOUNTER 2020-12-29 22:59 | Outpatient (CLI) | payer MEDICARE, OTHER | END 2020-12-29 23:00 | disposition critical access hospital (66) | LOC: EMS 22:59 | DX: R06.02 Shortness of breath (principal); R60.0 Localized edema | CPT/HCPCS: A0425; A0429 ==

== ENCOUNTER 2020-12-29 23:20 | Emergency (ER) | payer MEDICARE, OTHER ==
--- NOTE | 2020-12-30 00:43 | ED Physician Documentation ---
PD HPI DYSPNEA - Stated complaint Stated Complaint: SOA - Chief complaint Chief Complaint: Resp - History obtained from History obtained from: Patient, EMS - History of Present Illness Timing - onset: Today (worse today), Chronic Timing - onset during: Light activity Timing - details: Gradual onset Pain level max: 0 Pain level now: 0 Improved by: O2, Rest Worsened by: Exertion Associated symptoms: Bilateral edema. No: Fever, Cough, Hemoptysis, Wheezing, Chest pain / discomfort, Palpitations Recently seen: Admitted - Additional information Additional information: BIBA, c/o worsening dyspnea over her baseline. She says she uses 3 liters oxygen/min day/night but turns up to 4 when she is not at rest. She says she saw her manager cath lab today and was told she might not have COPD but instead that she might have chronic bronchitis (per patient). Patient says she recently had her lasix decreased from 40mg BID to QD (yesterday). She denies fever, denies pain Review of Systems Constitutional: reports: Reviewed and negative Cardiac: reports: Chest pain / pressure, Pedal edema. denies: Palpitations, Calf pain Respiratory: reports: Dyspnea. denies: Cough, Wheezing GI: reports: Reviewed and negative Musculoskeletal: reports: Extremity swelling Neurologic: reports: Generalized weakness PD PAST MEDICAL HISTORY - Past Medical History Past Medical History: Yes Cardiovascular: Congestive heart failure, Hypertension, High cholesterol, Coronary artery disease, Peripheral Vascular Disease, Atrial fibrillation Respiratory: COPD Neuro: TIA Endocrine/Autoimmune: HyPOthyroidism GI: GERD, GI bleed : None HEENT: Chronic sinusitis, Chronic hearing loss Psych: None Musculoskeletal: Osteoarthritis, Chronic back pain Derm: Herpes zoster - Past Surgical History Past Surgical History: Yes General: Cholecystectomy, Appendectomy, Hiatal hernia repair, Colonoscopy, EGD Ortho: Rotator cuff repair, Carpal Tunnel surgery, Spine surgery, 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, 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 Cardiovascular: CABG, Pacemaker, Other HEENT: Cataracts, Other Derm: Skin cancer surgery - Present Medications Home Medications: Ambulatory Orders Medication Instructions Recorded Confirmed Fluticasone [Flonase] 1 puffs NS BID 01/09/13 12/29/20 Olopatadine HCl [Patanol] 1 drop OP BID 01/09/13 12/29/20 traMADol [Ultram] 50 mg PO BID PRN 05/30/13 12/29/20 Dronedarone HCl [Multaq] 400 mg PO BID 01/07/15 12/29/20 Latanoprost [Xalatan] 1 drop OP DAILY 01/07/15 12/29/20 Fexofenadine HCl 180 mg PO DAILY 06/26/20 12/29/20 Losartan [Cozaar] 100 mg PO DAILY PM 06/26/20 12/29/20 Metoprolol Succinate [Toprol Xl] 25 mg PO DAILY 06/26/20 12/29/20 Albuterol 2.5 mg INH Q4H PRN 07/07/20 12/29/20 Atorvastatin [Lipitor] 10 mg PO DAILY PM 07/07/20 12/29/20 Isosorbide Mononitrate [Isosorbide 60 mg PO DAILY 07/07/20 12/29/20 Mononitrate ER] Levothyroxine Sodium [Synthroid] 250 mcg PO DAILY 07/07/20 12/29/20 amLODIPine [Norvasc] 10 mg PO DAILY 07/07/20 12/29/20 Acetaminophen [Tylenol] 650 mg PO Q6H PRN 10/10/20 12/29/20 Fluticasone/Salmeterol [Advair 1 each IH DAILY 10/10/20 12/29/20 250-50 Diskus] prednisoLONE 1% OPHTH DROPS [Pred 1 drops OPTH BID 10/10/20 12/29/20 Forte 1% Ophth Drops] Clopidogrel [Plavix] 75 mg PO DAILY 11/28/20 12/29/20 Furosemide [Lasix] 40 mg PO DAILY 12/15/20 12/29/20 Furosemide [Lasix] 40 mg PO QPM 5 Days #5 tablet 12/17/20 12/29/20 Azithromycin [Zithromax] 500 mg PO DAILY 1 Days #1 tablet 12/20/20 12/29/20 Furosemide [Lasix] 40 mg PO BID 7 Days #14 tablet 12/20/20 12/29/20 - Allergies Allergies/Adverse Reactions: Allergies Allergy/AdvReac Type Severity Reaction Status Date / Time hydrochlorothiazide Allergy Severe Anaphylaxis Verified 12/29/20 23:29 sulfamethoxazole Allergy Severe Anaphylaxis Verified 12/29/20 23:29 [From ] trimethoprim [From ] Allergy Severe Anaphylaxis Verified 12/29/20 23:29 amlodipine AdvReac Severe Swelling Verified 12/29/20 23:29 to ankles and feeet atenolol AdvReac Severe Bradycardia Verified 12/29/20 23:29 Penicillins AdvReac Severe Anxiety/Swelling Verified 12/29/20 23:29 and redness at injection site - Social History Does the pt smoke?: No Smoking Status: Never smoker Does the pt drink ETOH?: No Does the pt have substance abuse?: No - Immunizations Immunizations are current?: Yes - POLST Patient has POLST: Yes PD ED PE NORMAL - Vitals Vital signs reviewed: Yes - General General: Alert and oriented X 3, No acute distress, Well developed/nourished - HEENT HEENT: Moist mucous membranes - Neck Neck: Supple, no meningeal sign - Cardiac Cardiac: RRR, No murmur, Other (split S2) - Respiratory Respiratory: No respiratory distress, Other (scattered rales, predominantly bibasilar but no wheezing and good air movement) - Abdomen Abdomen: Soft, Non tender - Neuro Neuro: Alert and oriented X 3 PD ED PE EXPANDED - Extremities Extremities: Pedal edema bilateral Results - Vitals Vitals: Oxygen O2 Source Nasal cannula Oxygen Flow Rate 4 - EKG (time done) No standard instances Rate: Rate (enter#) (70) Rhythm: Paced [place]: LAD - Labs Labs: Laboratory Tests 12/29/20 12/29/20 12/29/20 23:46 23:46 23:46 WBC 13.1 H RBC 3.93 L Hgb 9.7 L Hct 33.7 L MCV 85.8 MCH 24.7 L MCHC 28.8 L RDW 18.6 H Plt Count 368 MPV 10.9 H Neut # (Auto) 10.3 H Lymph # (Auto) 1.6 [place] # (Auto) 1.0 Eos # (Auto) 0.2 Baso # (Auto) 0.1 Absolute Nucleated RBC 0.00 Nucleated RBC % 0.0 Manual Slide Review WBC Morphology Platelet Estimate Platelet Morphology RBC Morph Micro Appear Sodium 136 Potassium 3.1 L Chloride 94 L Carbon Dioxide 33 H Anion Gap 9.0 BUN 18 Creatinine 0.9 Estimated GFR (MDRD) 59 L Glucose 184 H Calcium 8.9 B-Natriuretic Peptide 273 H Slides for Path Review 12/30/20 23:46 WBC Cancelled RBC Cancelled Hgb Cancelled Hct Cancelled MCV Cancelled MCH Cancelled MCHC Cancelled RDW Cancelled Plt Count Cancelled MPV Cancelled Neut # (Auto) Cancelled Lymph # (Auto) Cancelled [place] # (Auto) Cancelled Eos # (Auto) Cancelled Baso # (Auto) Cancelled Absolute Nucleated RBC Cancelled Nucleated RBC % Cancelled Manual Slide Review Cancelled WBC Morphology Cancelled Platelet Estimate Cancelled Platelet Morphology Cancelled RBC Morph Micro Appear Cancelled Sodium Potassium Chloride Carbon Dioxide Anion Gap BUN Creatinine Estimated GFR (MDRD) Glucose Calcium B-Natriuretic Peptide Slides for Path Review Cancelled - Rads (name of study) chest xray Radiology: Prelim report reviewed, See rad report PD MEDICAL DECISION MAKING - ED course Complexity details: reviewed results, re-evaluated patient, considered differential, d/w patient ED course: patient presents c/o dyspnea that is worse than baseline. she suspects this is due to decreased dose of lasix (yesterday went from 80mg qd to 40mg qd). I was the ED physician at the time of her recent admission (12/13) and she appears much better than when she presented on this previous ED visit. She maintains pulse ox mid-90s, even up to 97% with good pleth, using only 3.5 liters [place] oxygen/min. This pulse ox maintains during conversation, as well, and she is speaking in full sentences with me. There are no findings on tonights tests (EKG, CXR, blood tests) that have concerning findings such that would indicate/necessitate further testing or treatment in the ED and/or inpatient. She is given 40mg lasix early in stay to help diurese and eventually is discharged back home. Departure - Departure Disposition: 01 Home, Self Care Clinical Impression: Dyspnea Qualifiers: Dyspnea type: unspecified Qualified Code(s): R06.00 - Dyspnea, unspecified Pulmonary edema Qualifiers: Chronicity: chronic Qualified Code(s): J81.1 - Chronic pulmonary edema Condition: Good Instructions: Edema Pulmonary, ED Dyspnea Shortness of Breath Follow-Up: JEREMIAH KELLEY MD [Primary Care Provider] - Discharge Date/Time: 12/30/20 04:58
[2020-12-30] MEDS ORDERED: FUROSEMIDE 40 MG/4 ML VIAL IVP STA (00:57)
[2020-12-30 01:12] LABS: CALCIUM 8.9 mg/dL (8.5-10.3); CREATININE 0.9 mg/dL (0.4-1.0); POTASSIUM 3.1 mmol/L (3.5-5.0)
[2020-12-30 01:19] LABS: BASOPHILS # (AUTO) 0.1 10^3/uL (0.0-0.1); BASOPHILS % (AUTO) 0.5 %; EOSINOPHILS # (AUTO) 0.2 10^3/uL (0.0-0.7); EOSINOPHILS % (AUTO) 1.5 %; HCT - HEMATOCRIT 33.7 % (37.0-47.0); HGB - HEMOGLOBIN 9.7 g/dL (12.0-16.0); LYMPHOCYTES # (AUTO) 1.6 10^3/uL (1.5-3.5); LYMPHOCYTES % (AUTO) 11.8 %; MEAN CORPUSCULAR HEMOGLOBIN 24.7 pg (27.0-31.0); MEAN CORPUSCULAR HGB CONC 28.8 g/dL (32.0-36.0); MEAN CORPUSCULAR VOLUME 85.8 fL (81.0-99.0); MEAN PLATELET VOLUME 10.9 fL (7.9-10.8); MONOCYTES % (AUTO) 7.7 %; NEUTROPHILS # (AUTO) 10.3 10^3/uL (1.5-6.6); NEUTROPHILS % (AUTO) 78.1 %; PLT - PLATELET COUNT 368 10^3/uL (130-450); RED BLOOD COUNT 3.93 10^6/uL (4.20-5.40); RED CELL DISTRIBUTION WIDTH 18.6 % (12.0-15.0); WHITE BLOOD COUNT 13.1 x10^3/uL (4.8-10.8)
--- NOTE | 2020-12-30 01:27 | XRAY Report ---
PROCEDURE: Chest 1 View X-Ray INDICATIONS: dyspnea TECHNIQUE: One view of the chest was acquired. COMPARISON: 12/20/2020 FINDINGS: Surgical changes and devices: Left-sided cardiac pacer device is unchanged in positioning. Multiple m edian sternotomy wires are intact.. Lungs and pleura: Diffuse interstitial prominence as before. Streaky bibasilar opacities. There is va scular congestion. No pneumothorax. Small bilateral pleural effusions larger on the left. Mediastinum: Mediastinal contours appear stable. Heart size is enlarged. Bones and chest wall: No suspicious bony lesions. Overlying soft tissues appear unremarkable. IMPRESSION: Cardiomegaly with findings compatible with pulmonary edema. No significant interval change. Reviewed by: Ariel Rodriguez MD on 12/30/2020 1:26 AM PDT Approved by: Ariel Rodriguez MD on 12/30/2020 1:26 AM PDT Station ID: [id number]
[2020-12-30 04:59] VITALS: BP 145/60
== END 2020-12-30 04:58 | disposition home or self-care (01) ==
LOC: EDUNIT# → SUPCPDRO 23:20 → ED 23:20
DX: J81.1 Chronic pulmonary edema (principal); Z99.81 Dependence on supplemental oxygen; R07.89 Other chest pain; I10 Essential (primary) hypertension; I48.91 Unspecified atrial fibrillation; Z79.01 Long term (current) use of anticoagulants
CPT/HCPCS: 36415; 80048; 83880; 85025; 93005; 99283; 99285